=== PATIENT | female | born 1940 | race Caucasian/White ===

== ENCOUNTER 2018-05-26 17:08 | Emergency (ER) | payer OTHER, SELFPAY ==
[2018-05-26 17:13] VITALS: BP 121/72; PULSE 73; RESP 20; TEMP 35.9; O2SAT 99; BMI 32.3
--- NOTE | 2018-05-26 17:46 | ED.ABDPAIN ---
HPI - Abdominal Pain <FRAN Beltrán - Last Filed: 05/26/18 22:23> General Chief Complaint: Nausea/Vomiting/Diarrhea Stated Complaint: Nausea Time Seen by Provider: 05/26/18 17:37 Source: patient Mode of arrival: ambulatory Limitations: no limitations History of Present Illness HPI narrative: Healthy 77-year-old female who was a former smoker here for complaint of having nausea vomiting with sensation that the room is spinning that started this afternoon. She states she was sitting in a chair watching TV when the sensation started. She denies any headache. She denies any chest pain. No shortness of breath. Positive p.o. intake. She reports that the symptoms have resolved at time of exam. She denies any fevers or chills. She denies any recent trauma. No other concerns or complaints MD complaint: other Related Data Previous Rx's Medication Instructions Recorded meclizine 25 mg PO BID PRN #15 tab 05/26/18 Allergies Allergy/AdvReac Type Severity Reaction Status Date / Time nickel [NICKEL] Allergy Unknown Verified 12/07/17 15:20 Review of Systems <FRAN Beltrán - Last Filed: 05/26/18 22:23> Constitutional Denies chills, Denies fever(s), Denies lethargy and Denies weakness Comments: Vertigo Eyes Denies change in vision, Denies eye discharge, Denies irritation and Denies loss of vision ENT Ears, Nose, Mouth, and Throat: Denies change in voice, Denies neck pain and Denies sore throat Cardiovascular Denies chest pain, Denies irregular heart rhythm, Denies lightheadedness, Denies palpitations, Denies dyspnea, Denies dyspnea on exertion and Denies orthopnea Respiratory Denies cough, Denies dyspnea, Denies dyspnea on exertion and Denies wheezing Gastrointestinal Comments: Nausea vomiting Genitourinary Denies hematuria, Denies flank pain, Denies urinary incontinence and Denies urinary urgency Musculoskeletal Denies neck pain Integumentary/Breasts Denies pruritus, Denies erythema, Denies rash and Denies wounds Neurologic Denies confusion, Denies loss of vision and Denies weakness Psychiatric Denies anxiety, Denies confusion, Denies depression, Denies homicidal ideation and Denies suicidal ideation Endocrine Denies palpitations Hematologic/Lymphatic Denies easy bruising Allergic/Immunologic Denies wheezing Exam <FRAN Beltrán - Last Filed: 05/26/18 22:23> Initial Vital Signs Initial Vital Signs: Vital Signs Temperature 96.7 F L 05/26/18 17:13 Pulse Rate 73 05/26/18 17:13 Respiratory Rate 20 05/26/18 17:13 Blood Pressure 121/72 05/26/18 17:13 Pulse Oximetry 99 05/26/18 17:13 Const General: cooperative and well developed Nutritional Appearance: well nourished Orientation: alert, awake, oriented x3 and not confused HENMT Head: normal to inspection, normocephalic and atraumatic Ears: TM's normal bilaterally Mouth: oral mucosae normal and moist mucous membranes Eyes Conjunctivae: conjunctivae normal Sclera: sclerae normal Pupils: PERRL EOM: EOM intact bilaterally Neck Neck: normal visual inspection, trachea midline, No lymphadenopathy, No midline deformity and No JVD Lymphatic: No lymphedema Resp Effort & Inspection: normal respiratory effort, able to speak in complete sentences, no respiratory distress and no use of accessory muscles Auscultation: clear to auscultation bilaterally, no rales, no rhonchi and no wheezes Cardio Rate: regular rate Rhythm: regular rhythm Heart Sounds: no click, no gallops, no murmurs and no rubs Pulses: normal peripheral pulses Skin General: no rashes or lesions noted, No jaundice and No petechiae Neuro General: alert, oriented x3, gait normal and no focal motor deficits Speech: speech normal <Anderson Jenkins DO - Last Filed: 05/27/18 01:35> Initial Vital Signs Initial Vital Signs: Vital Signs Temperature 96.7 F L 05/26/18 17:13 Pulse Rate 73 05/26/18 17:13 Respiratory Rate 20 05/26/18 17:13 Blood Pressure 121/72 05/26/18 17:13 Pulse Oximetry 99 05/26/18 17:13 Course <FRAN Beltrán - Last Filed: 05/26/18 22:23> Orders Ordered: ED Orders 05/26/18 17:49 EKG-12 Lead Stat 05/26/18 18:11 Complete Blood Count AUTO DIFF Stat Comprehensive Metabolic Panel Stat Lipase Stat Partial Thromboplastin Time Stat Prothrombin Time INR Stat Troponin & CK Cardiac Panel Stat 05/26/18 18:34 CT head/brain wo con Stat 05/26/18 18:35 XR chest 1V Stat Discontinued Medications Sodium Chloride (Normal Saline 0.9%) 1,000 mls @ 1,000 mls/hr IV BOLUS ONE Stop: 05/26/18 19:33 Last Infusion: 05/26/18 19:35 Dose: 0 mls/hr Admin: 05/26/18 18:00 Dose: 1,000 mls/hr Ondansetron HCl (Zofran) 4 mg IV NOW ONE Stop: 05/26/18 17:57 Last Admin: 05/26/18 18:00 Dose: 4 mg Vital Signs - 8 hr 05/26/18 19:00 05/26/18 20:50 Pulse Rate 66 71 Respiratory Rate 15 21 Blood Pressure 136/61 Blood Pressure [Left Wrist] 133/55 L Pulse Oximetry 99 93 <Anderson Jenkins DO - Last Filed: 05/27/18 01:35> Orders Ordered: ED Orders 05/26/18 17:49 EKG-12 Lead Stat 05/26/18 18:11 Complete Blood Count AUTO DIFF Stat Comprehensive Metabolic Panel Stat Lipase Stat Partial Thromboplastin Time Stat Prothrombin Time INR Stat Troponin & CK Cardiac Panel Stat 05/26/18 18:34 CT head/brain wo con Stat 05/26/18 18:35 XR chest 1V Stat Discontinued Medications Sodium Chloride (Normal Saline 0.9%) 1,000 mls @ 1,000 mls/hr IV BOLUS ONE Stop: 05/26/18 19:33 Last Infusion: 05/26/18 19:35 Dose: 0 mls/hr Admin: 05/26/18 18:00 Dose: 1,000 mls/hr Ondansetron HCl (Zofran) 4 mg IV NOW ONE Stop: 05/26/18 17:57 Last Admin: 05/26/18 18:00 Dose: 4 mg Vital Signs - 8 hr 05/26/18 19:00 05/26/18 20:50 Pulse Rate 66 71 Respiratory Rate 15 21 Blood Pressure 136/61 Blood Pressure [Left Wrist] 133/55 L Pulse Oximetry 99 93 MDM - Abdominal Pain <FRAN Beltrán - Last Filed: 05/26/18 22:23> Lab Data Result diagrams: 05/26/18 18:11 05/26/18 18:11 Lab Results 05/26/18 05/26/18 05/26/18 Range/Units 18:11 18:11 18:11 WBC 10.0 (4.5-11.0) X10^3/uL RBC 4.47 (4.0-5.2) X10^6/uL Hgb 14.2 (12.0-16.0) g/dL Hct 42.1 (36-46) % MCV 94.0 (80-100) fL MCH 31.7 (26-34) PG MCHC 33.7 (30-36) % RDW 13.2 (11.6-14.8) % Plt Count 288 (150-400) X10^3/uL Neut % (Auto) 83.7 H (50-75) % Lymph % (Auto) 9.7 L (25-40) % Winn % (Auto) 5.7 (3-14) % Eos % (Auto) 0.3 L (2-4) % Baso % (Auto) 0.6 (0-2) % Neut # (Auto) 8300 H (8940-3511) /uL PT 11.4 (10.1-12.7) SECONDS INR 1.0 (0.9-1.3) APTT 28 (26.4-36.2) SECONDS Sodium 139 (137-145) mmol/L Potassium 4.2 (3.4-5.1) mmol/L Chloride 105 (98-107) mmol/L Carbon Dioxide 23 (22-32) mmol/L BUN 16 (7-17) mg/dL Creatinine 0.80 (0.52-1.04) mg/dL Estimated GFR > 60.0 (>60) mL/min BUN/Creatinine Ratio 20.0 (6-22) Glucose 140 H (80-110) mg/dL Calcium 9.0 (8.4-10.2) mg/dL Total Bilirubin 0.3 (0.2-1.3) mg/dL AST 18 (14-36) IU/L ALT 18 (9-52) IU/L Alkaline Phosphatase 80 (38-126) U/L Total Creatine Kinase 36 (30-135) U/L CK-MB (CK-2) TNP CK-MB (CK-2) Rel Index TNP Troponin I < 0.012 (0.01-0.034) ng/mL Total Protein 6.7 (6.3-8.2) g/dL Albumin 3.9 (3.5-5.0) g/dL Globulin 2.8 (1.7-4.1) g/dL Albumin/Globulin Ratio 1.4 (1.0-2.8) Lipase 67 (23-300) U/L Imaging Data Chest x-ray: Radiologist's impression: [address] [id number] XRay Report Signed Patient: Miracle Crystal MR#: [id number] : 1940 Acct:[id number] Age/Sex: 77 / F Date of Service: 05/26/18 Loc: ED Accession Number: [id number] Procedure: XR chest 1V Ordering Provider: Luis Gomez PROCEDURE: XR CHEST 1V INDICATIONS: Nausea vomiting and vertigo TECHNIQUE: One view of the chest was acquired. COMPARISON: [facility], , CHEST 2VW, 07/09/2006, 3:52. FINDINGS: Surgical changes and devices: None. Lungs and pleura: No pleural effusions or pneumothorax. Lungs are clear. Mediastinum: Mediastinal contours appear normal. Heart size is normal. Bones and chest wall: No suspicious bony lesions. Overlying soft tissues appear unremarkable. IMPRESSION: No acute cardiopulmonary disease. Dictated by: Esther Alvarado M.D. on 05/26/2018 at 19:23 Approved by: Esther Alvarado M.D. on 05/26/2018 at 19:24 CT scan - head: Radiologist's impression: [address] [id number] [address] Scan Report Signed Patient: Miracle Crystal MR#: [id number] : 1940 Acct:[id number] Age/Sex: 77 / F Date of Service: 05/26/18 Loc: ED Accession Number: [id number] Procedure: CT head/brain wo con Ordering Provider: Luis Gomez PROCEDURE: CT HEAD/BRAIN WO CON INDICATIONS: Nausea vomiting vertigo TECHNIQUE: Noncontrast 4.5 mm thick angled axial sections acquired from the foramen magnum to the vertex, with coronal and sagittal reformats. For radiation dose reduction, the following was used: automated exposure control, adjustment of mA and/or kV according to patient size. COMPARISON: None. FINDINGS: Image quality: Excellent. CSF spaces: Basal cisterns are patent. No extra-axial fluid collections. The ventricles are symmetric in size and shape. Brain: No intracranial bleeds or masses. There are mild periventricular and deep white matter chronic small vessel ischemic changes. There is intracranial internal carotid artery atherosclerosis. Skull and face: Calvarium and visualized facial bones appear intact, without suspicious lesions. Sinuses: Visualized sinuses and mastoids are clear. IMPRESSION: 1. No acute intracranial abnormalities. Dictated by: Esther Alvarado M.D. on 05/26/2018 at 19:16 Approved by: Esther Alvarado M.D. on 05/26/2018 at 19:23 ECG Data Interpretation: EKG shows sinus rhythm with no ST elevation or depression. No ectopy. Ventricular rate is 64. Pr interval of 168. QRS duration of 89. QTC of 418 MDM Narrative Medical decision making narrative: EKG shows sinus rhythm with no ST elevation or depression. No ectopy. CT of the head was obtained was negative for any acute findings. Chest x-ray was obtained was negative for any acute findings. CBC and Chem panel were obtained and were unremarkable. Cardiac enzymes were negative. Signs and symptoms have resolved. Will treat for BPPV with meclizine and modified Carlos maneuvers at home. Follow up with primary care provider next few days for re-evaluation. For any worsening symptoms return to the emergency room. <Anderson Jenkins DO - Last Filed: 05/27/18 01:35> Lab Data Lab Results 05/26/18 05/26/18 05/26/18 Range/Units 18:11 18:11 18:11 WBC 10.0 (4.5-11.0) X10^3/uL RBC 4.47 (4.0-5.2) X10^6/uL Hgb 14.2 (12.0-16.0) g/dL Hct 42.1 (36-46) % MCV 94.0 (80-100) fL MCH 31.7 (26-34) PG MCHC 33.7 (30-36) % RDW 13.2 (11.6-14.8) % Plt Count 288 (150-400) X10^3/uL Neut % (Auto) 83.7 H (50-75) % Lymph % (Auto) 9.7 L (25-40) % Winn % (Auto) 5.7 (3-14) % Eos % (Auto) 0.3 L (2-4) % Baso % (Auto) 0.6 (0-2) % Neut # (Auto) 8300 H (2788-6860) /uL PT 11.4 (10.1-12.7) SECONDS INR 1.0 (0.9-1.3) APTT 28 (26.4-36.2) SECONDS Sodium 139 (137-145) mmol/L Potassium 4.2 (3.4-5.1) mmol/L Chloride 105 (98-107) mmol/L Carbon Dioxide 23 (22-32) mmol/L BUN 16 (7-17) mg/dL Creatinine 0.80 (0.52-1.04) mg/dL Estimated GFR > 60.0 (>60) mL/min BUN/Creatinine Ratio 20.0 (6-22) Glucose 140 H (80-110) mg/dL Calcium 9.0 (8.4-10.2) mg/dL Total Bilirubin 0.3 (0.2-1.3) mg/dL AST 18 (14-36) IU/L ALT 18 (9-52) IU/L Alkaline Phosphatase 80 (38-126) U/L Total Creatine Kinase 36 (30-135) U/L CK-MB (CK-2) TNP CK-MB (CK-2) Rel Index TNP Troponin I < 0.012 (0.01-0.034) ng/mL Total Protein 6.7 (6.3-8.2) g/dL Albumin 3.9 (3.5-5.0) g/dL Globulin 2.8 (1.7-4.1) g/dL Albumin/Globulin Ratio 1.4 (1.0-2.8) Lipase 67 (23-300) U/L Discharge Plan Departure Patient Disposition: Home Clinical Impression: Benign paroxysmal positional vertigo Discharge Date/Time: 05/26/18 20:51 Interventions: ED Discharge Assessment Last Done: 05/26/18 20:50 Instructions: DI for Benign Paroxysmal Positional Vertigo Activity Restrictions/Additional Instructions: Laboratory results and imaging today were unremarkable. EKG was normal. Signs and symptoms presents as a benign proximal positional vertigo pain. Use meclizine as needed for any vertigo. Perform a modified Apley's maneuvers as shown to help with vertigo symptoms. Follow up with her primary care provider next week. For any worsening symptoms return to the emergency room. Prescriptions: New meclizine 25 mg tablet 25 mg PO BID PRN (Reason: dizziness) Qty: 15 RF: 0 Referrals: Queenie Moody DO [Primary Care Provider] - <Anderson Jenkins DO - Last Filed: 05/27/18 01:35> Cosign ED Attending Elliotature Attestation: I was immediately available in the department for consultation. Documentation has been reviewed. I agree with assessment and plan.
--- NOTE | 2018-05-26 17:51 | ED_ITS ---
HPI - Abdominal Pain <FRAN Beltrán - Last Filed: 05/26/18 22:23> General Chief Complaint: Nausea/Vomiting/Diarrhea Stated Complaint: Nausea Time Seen by Provider: 05/26/18 17:37 Source: patient Mode of arrival: ambulatory Limitations: no limitations History of Present Illness HPI narrative: Healthy 77-year-old female who was a former smoker here for complaint of having nausea vomiting with sensation that the room is spinning that started this afternoon. She states she was sitting in a chair watching TV when the sensation started. She denies any headache. She denies any chest pain. No shortness of breath. Positive p.o. intake. She reports that the symptoms have resolved at time of exam. She denies any fevers or chills. She denies any recent trauma. No other concerns or complaints MD complaint: other Related Data Previous Rx's Medication Instructions Recorded meclizine 25 mg PO BID PRN #15 tab 05/26/18 Allergies Allergy/AdvReac Type Severity Reaction Status Date / Time nickel [NICKEL] Allergy Unknown Verified 12/07/17 15:20 Review of Systems <FRAN Beltrán - Last Filed: 05/26/18 22:23> Constitutional Denies chills, Denies fever(s), Denies lethargy and Denies weakness Comments: Vertigo Eyes Denies change in vision, Denies eye discharge, Denies irritation and Denies loss of vision ENT Ears, Nose, Mouth, and Throat: Denies change in voice, Denies neck pain and Denies sore throat Cardiovascular Denies chest pain, Denies irregular heart rhythm, Denies lightheadedness, Denies palpitations, Denies dyspnea, Denies dyspnea on exertion and Denies orthopnea Respiratory Denies cough, Denies dyspnea, Denies dyspnea on exertion and Denies wheezing Gastrointestinal Comments: Nausea vomiting Genitourinary Denies hematuria, Denies flank pain, Denies urinary incontinence and Denies urinary urgency Musculoskeletal Denies neck pain Integumentary/Breasts Denies pruritus, Denies erythema, Denies rash and Denies wounds Neurologic Denies confusion, Denies loss of vision and Denies weakness Psychiatric Denies anxiety, Denies confusion, Denies depression, Denies homicidal ideation and Denies suicidal ideation Endocrine Denies palpitations Hematologic/Lymphatic Denies easy bruising Allergic/Immunologic Denies wheezing Exam <FRAN Beltrán - Last Filed: 05/26/18 22:23> Initial Vital Signs Initial Vital Signs: Vital Signs Temperature 96.7 F L 05/26/18 17:13 Pulse Rate 73 05/26/18 17:13 Respiratory Rate 20 05/26/18 17:13 Blood Pressure 121/72 05/26/18 17:13 Pulse Oximetry 99 05/26/18 17:13 Const General: cooperative and well developed Nutritional Appearance: well nourished Orientation: alert, awake, oriented x3 and not confused HENMT Head: normal to inspection, normocephalic and atraumatic Ears: TM's normal bilaterally Mouth: oral mucosae normal and moist mucous membranes Eyes Conjunctivae: conjunctivae normal Sclera: sclerae normal Pupils: PERRL EOM: EOM intact bilaterally Neck Neck: normal visual inspection, trachea midline, No lymphadenopathy, No midline deformity and No JVD Lymphatic: No lymphedema Resp Effort & Inspection: normal respiratory effort, able to speak in complete sentences, no respiratory distress and no use of accessory muscles Auscultation: clear to auscultation bilaterally, no rales, no rhonchi and no wheezes Cardio Rate: regular rate Rhythm: regular rhythm Heart Sounds: no click, no gallops, no murmurs and no rubs Pulses: normal peripheral pulses Skin General: no rashes or lesions noted, No jaundice and No petechiae Neuro General: alert, oriented x3, gait normal and no focal motor deficits Speech: speech normal <Anderson Jenkins DO - Last Filed: 05/27/18 01:35> Initial Vital Signs Initial Vital Signs: Vital Signs Temperature 96.7 F L 05/26/18 17:13 Pulse Rate 73 05/26/18 17:13 Respiratory Rate 20 05/26/18 17:13 Blood Pressure 121/72 05/26/18 17:13 Pulse Oximetry 99 05/26/18 17:13 Course <FRAN Beltrán - Last Filed: 05/26/18 22:23> Orders Ordered: ED Orders 05/26/18 17:49 EKG-12 Lead Stat 05/26/18 18:11 Complete Blood Count AUTO DIFF Stat Comprehensive Metabolic Panel Stat Lipase Stat Partial Thromboplastin Time Stat Prothrombin Time INR Stat Troponin & CK Cardiac Panel Stat 05/26/18 18:34 CT head/brain wo con Stat 05/26/18 18:35 XR chest 1V Stat Discontinued Medications Sodium Chloride (Normal Saline 0.9%) 1,000 mls @ 1,000 mls/hr IV BOLUS ONE Stop: 05/26/18 19:33 Last Infusion: 05/26/18 19:35 Dose: 0 mls/hr Admin: 05/26/18 18:00 Dose: 1,000 mls/hr Ondansetron HCl (Zofran) 4 mg IV NOW ONE Stop: 05/26/18 17:57 Last Admin: 05/26/18 18:00 Dose: 4 mg Vital Signs - 8 hr 05/26/18 19:00 05/26/18 20:50 Pulse Rate 66 71 Respiratory Rate 15 21 Blood Pressure 136/61 Blood Pressure [Left Wrist] 133/55 L Pulse Oximetry 99 93 <Anderson Jenkins DO - Last Filed: 05/27/18 01:35> Orders Ordered: ED Orders 05/26/18 17:49 EKG-12 Lead Stat 05/26/18 18:11 Complete Blood Count AUTO DIFF Stat Comprehensive Metabolic Panel Stat Lipase Stat Partial Thromboplastin Time Stat Prothrombin Time INR Stat Troponin & CK Cardiac Panel Stat 05/26/18 18:34 CT head/brain wo con Stat 05/26/18 18:35 XR chest 1V Stat Discontinued Medications Sodium Chloride (Normal Saline 0.9%) 1,000 mls @ 1,000 mls/hr IV BOLUS ONE Stop: 05/26/18 19:33 Last Infusion: 05/26/18 19:35 Dose: 0 mls/hr Admin: 05/26/18 18:00 Dose: 1,000 mls/hr Ondansetron HCl (Zofran) 4 mg IV NOW ONE Stop: 05/26/18 17:57 Last Admin: 05/26/18 18:00 Dose: 4 mg Vital Signs - 8 hr 05/26/18 19:00 05/26/18 20:50 Pulse Rate 66 71 Respiratory Rate 15 21 Blood Pressure 136/61 Blood Pressure [Left Wrist] 133/55 L Pulse Oximetry 99 93 MDM - Abdominal Pain <FRAN Beltrán - Last Filed: 05/26/18 22:23> Lab Data Result diagrams: 05/26/18 18:11 05/26/18 18:11 Lab Results 05/26/18 05/26/18 05/26/18 Range/Units 18:11 18:11 18:11 WBC 10.0 (4.5-11.0) X10^3/uL RBC 4.47 (4.0-5.2) X10^6/uL Hgb 14.2 (12.0-16.0) g/dL Hct 42.1 (36-46) % MCV 94.0 (80-100) fL MCH 31.7 (26-34) PG MCHC 33.7 (30-36) % RDW 13.2 (11.6-14.8) % Plt Count 288 (150-400) X10^3/uL Neut % (Auto) 83.7 H (50-75) % Lymph % (Auto) 9.7 L (25-40) % [place] % (Auto) 5.7 (3-14) % Eos % (Auto) 0.3 L (2-4) % Baso % (Auto) 0.6 (0-2) % Neut # (Auto) 8300 H (7349-6373) /uL PT 11.4 (10.1-12.7) SECONDS INR 1.0 (0.9-1.3) APTT 28 (26.4-36.2) SECONDS Sodium 139 (137-145) mmol/L Potassium 4.2 (3.4-5.1) mmol/L Chloride 105 (98-107) mmol/L Carbon Dioxide 23 (22-32) mmol/L BUN 16 (7-17) mg/dL Creatinine 0.80 (0.52-1.04) mg/dL Estimated GFR > 60.0 (>60) mL/min BUN/Creatinine Ratio 20.0 (6-22) Glucose 140 H (80-110) mg/dL Calcium 9.0 (8.4-10.2) mg/dL Total Bilirubin 0.3 (0.2-1.3) mg/dL AST 18 (14-36) IU/L ALT 18 (9-52) IU/L Alkaline Phosphatase 80 (38-126) U/L Total Creatine Kinase 36 (30-135) U/L CK-MB (CK-2) TNP CK-MB (CK-2) Rel Index TNP Troponin I < 0.012 (0.01-0.034) ng/mL Total Protein 6.7 (6.3-8.2) g/dL Albumin 3.9 (3.5-5.0) g/dL Globulin 2.8 (1.7-4.1) g/dL Albumin/Globulin Ratio 1.4 (1.0-2.8) Lipase 67 (23-300) U/L Imaging Data Chest x-ray: Radiologist's impression: [address] [address] XRay Report Signed Patient: Miracle Crystal MR#: [id number] : 1940 Acct:[id number] Age/Sex: 77 / F Date of Service: 05/26/18 Loc: ED Accession Number: [id number] Procedure: XR chest 1V Ordering Provider: Luis Gomez PROCEDURE: XR CHEST 1V INDICATIONS: Nausea vomiting and vertigo TECHNIQUE: One view of the chest was acquired. COMPARISON: [facility], , CHEST 2VW, 07/09/2006, 3:52. FINDINGS: Surgical changes and devices: None. Lungs and pleura: No pleural effusions or pneumothorax. Lungs are clear. Mediastinum: Mediastinal contours appear normal. Heart size is normal. Bones and chest wall: No suspicious bony lesions. Overlying soft tissues appear unremarkable. IMPRESSION: No acute cardiopulmonary disease. Dictated by: Esther Alvarado M.D. on 05/26/2018 at 19:23 Approved by: Esther Alvarado M.D. on 05/26/2018 at 19:24 CT scan - head: Radiologist's impression: [address] [address] [address] Scan Report Signed Patient: Miracle Crystal MR#: [id number] : 1940 Acct:[id number] Age/Sex: 77 / F Date of Service: 05/26/18 Loc: ED Accession Number: [id number] Procedure: CT head/brain wo con Ordering Provider: Luis Gomez PROCEDURE: CT HEAD/BRAIN WO CON INDICATIONS: Nausea vomiting vertigo TECHNIQUE: Noncontrast 4.5 mm thick angled axial sections acquired from the foramen magnum to the vertex, with coronal and sagittal reformats. For radiation dose reduction, the following was used: automated exposure control, adjustment of mA and/or kV according to patient size. COMPARISON: None. FINDINGS: Image quality: Excellent. CSF spaces: Basal cisterns are patent. No extra-axial fluid collections. The ventricles are symmetric in size and shape. Brain: No intracranial bleeds or masses. There are mild periventricular and deep white matter chronic small vessel ischemic changes. There is intracranial internal carotid artery atherosclerosis. Skull and face: Calvarium and visualized facial bones appear intact, without suspicious lesions. Sinuses: Visualized sinuses and mastoids are clear. IMPRESSION: 1. No acute intracranial abnormalities. Dictated by: Esther Alvarado M.D. on 05/26/2018 at 19:16 Approved by: Esther Alvarado M.D. on 05/26/2018 at 19:23 ECG Data Interpretation: EKG shows sinus rhythm with no ST elevation or depression. No ectopy. Ventricular rate is 64. Pr interval of 168. QRS duration of 89. QTC of 418 MDM Narrative Medical decision making narrative: EKG shows sinus rhythm with no ST elevation or depression. No ectopy. CT of the head was obtained was negative for any acute findings. Chest x-ray was obtained was negative for any acute findings. CBC and Chem panel were obtained and were unremarkable. Cardiac enzymes were negative. Signs and symptoms have resolved. Will treat for BPPV with meclizine and modified Carlos maneuvers at home. Follow up with primary care provider next few days for re-evaluation. For any worsening symptoms return to the emergency room. <Anderson Jenkins DO - Last Filed: 05/27/18 01:35> Lab Data Lab Results 05/26/18 05/26/18 05/26/18 Range/Units 18:11 18:11 18:11 WBC 10.0 (4.5-11.0) X10^3/uL RBC 4.47 (4.0-5.2) X10^6/uL Hgb 14.2 (12.0-16.0) g/dL Hct 42.1 (36-46) % MCV 94.0 (80-100) fL MCH 31.7 (26-34) PG MCHC 33.7 (30-36) % RDW 13.2 (11.6-14.8) % Plt Count 288 (150-400) X10^3/uL Neut % (Auto) 83.7 H (50-75) % Lymph % (Auto) 9.7 L (25-40) % [place] % (Auto) 5.7 (3-14) % Eos % (Auto) 0.3 L (2-4) % Baso % (Auto) 0.6 (0-2) % Neut # (Auto) 8300 H (6290-3517) /uL PT 11.4 (10.1-12.7) SECONDS INR 1.0 (0.9-1.3) APTT 28 (26.4-36.2) SECONDS Sodium 139 (137-145) mmol/L Potassium 4.2 (3.4-5.1) mmol/L Chloride 105 (98-107) mmol/L Carbon Dioxide 23 (22-32) mmol/L BUN 16 (7-17) mg/dL Creatinine 0.80 (0.52-1.04) mg/dL Estimated GFR > 60.0 (>60) mL/min BUN/Creatinine Ratio 20.0 (6-22) Glucose 140 H (80-110) mg/dL Calcium 9.0 (8.4-10.2) mg/dL Total Bilirubin 0.3 (0.2-1.3) mg/dL AST 18 (14-36) IU/L ALT 18 (9-52) IU/L Alkaline Phosphatase 80 (38-126) U/L Total Creatine Kinase 36 (30-135) U/L CK-MB (CK-2) TNP CK-MB (CK-2) Rel Index TNP Troponin I < 0.012 (0.01-0.034) ng/mL Total Protein 6.7 (6.3-8.2) g/dL Albumin 3.9 (3.5-5.0) g/dL Globulin 2.8 (1.7-4.1) g/dL Albumin/Globulin Ratio 1.4 (1.0-2.8) Lipase 67 (23-300) U/L Discharge Plan Departure Patient Disposition: Home Clinical Impression: Benign paroxysmal positional vertigo Discharge Date/Time: 05/26/18 20:51 Interventions: ED Discharge Assessment Last Done: 05/26/18 20:50 Instructions: DI for Benign Paroxysmal Positional Vertigo Activity Restrictions/Additional Instructions: Laboratory results and imaging today were unremarkable. EKG was normal. Signs and symptoms presents as a benign proximal positional vertigo pain. Use meclizine as needed for any vertigo. Perform a modified Apley's maneuvers as shown to help with vertigo symptoms. Follow up with her primary care provider next week. For any worsening symptoms return to the emergency room. Prescriptions: New meclizine 25 mg tablet 25 mg PO BID PRN (Reason: dizziness) Qty: 15 RF: 0 Referrals: Queenie Moody DO [Primary Care Provider] - <Anderson Jenkins DO - Last Filed: 05/27/18 01:35> Cosign ED Attending Elliotature Attestation: I was immediately available in the department for consultation. Documentation has been reviewed. I agree with assessment and plan.
[2018-05-26] MEDS: ONDANSETRON 4 MG/2 ML INJ IV (18:00)
[2018-05-26] MEDS: SODIUM CHLORIDE 0.9% 1,000 ML 1000 ML IV (18:00)
--- NOTE | 2018-05-26 18:07 | PC.NURSE ---
Pt felt nauseated and upon arrival felt dizzy. Pt denies pain
[2018-05-26 18:19] LABS: Add Manual Diff / Slide Review NO; Basophils Percent Auto 0.6 % (0-2); Eosinophils Percent Auto 0.3 % (2-4); Hematocrit 42.1 % (36-46); Hemoglobin 14.2 g/dL (12.0-16.0); Lymphocytes Percent Auto 9.7 % (25-40); Mean Corpuscular HGB Conc 33.7 % (30-36); Mean Corpuscular Hemoglobin 31.7 PG (26-34); Monocytes Percent Auto 5.7 % (3-14); Neutrophils Absolute Auto 8300 /uL (1500-7000); Neutrophils Percent Auto 83.7 % (50-75); Platelet Count 288 X10^3/uL (150-400); Red Blood Cell Count 4.47 X10^6/uL (4.0-5.2); Red Cell Distribution Width 13.2 % (11.6-14.8)
[2018-05-26 18:30] LABS: Prothrombin Time 11.4 SECONDS (10.1-12.7)
[2018-05-26 18:33] LABS: PTT Partial Thromboplastin Tim 28 SECONDS (26.4-36.2)
--- NOTE | 2018-05-26 18:34 | DI.CT.S_ITS ---
PROCEDURE: CT HEAD/BRAIN WO CON INDICATIONS: Nausea vomiting vertigo TECHNIQUE: Noncontrast 4.5 mm thick angled axial sections acquired from the foramen magnum to the vertex, with coronal and sagittal reformats. For radiation dose reduction, the following was used: automated exposure control, adjustment of mA and/or kV according to patient size. COMPARISON: None. FINDINGS: Image quality: Excellent. CSF spaces: Basal cisterns are patent. No extra-axial fluid collections. The ventricles are symmetric in size and shape. Brain: No intracranial bleeds or masses. There are mild periventricular and deep white matter chronic small vessel ischemic changes. There is intracranial internal carotid artery atherosclerosis. Skull and face: Calvarium and visualized facial bones appear intact, without suspicious lesions. Sinuses: Visualized sinuses and mastoids are clear. IMPRESSION: 1. No acute intracranial abnormalities. Dictated by: Esther Alvarado M.D. on 05/26/2018 at 19:16 Approved by: Esther Alvarado M.D. on 05/26/2018 at 19:23
[2018-05-26 18:35] LABS: Alanine Aminotransferase 18 IU/L (9-52); Albumin 3.9 g/dL (3.5-5.0); Albumin Globulin Ratio 1.4 (1.0-2.8); Alkaline Phosphatase 80 U/L (38-126); Aspartate Aminotransferase 18 IU/L (14-36); Bilirubin Total 0.3 mg/dL (0.2-1.3); Blood Urea Nitrogen 16 mg/dL (7-17); Carbon Dioxide 23 mmol/L (22-32); Chloride 105 mmol/L (98-107); Estimated Glomerular Filt Rate > 60.0 mL/min (>60); Globulin 2.8 g/dL (1.7-4.1); Glucose 140 mg/dL (80-110); HEMOLYSIS < 15 (0-50); Lipase 67 U/L (23-300); Potassium 4.2 mmol/L (3.4-5.1); Sodium 139 mmol/L (137-145); Total Protein 6.7 g/dL (6.3-8.2)
--- NOTE | 2018-05-26 18:35 | DI.RAD.S_ITS ---
PROCEDURE: XR CHEST 1V INDICATIONS: Nausea vomiting and vertigo TECHNIQUE: One view of the chest was acquired. COMPARISON: [facility], CR, CHEST 2VW, 07/09/2006, 3:52. FINDINGS: Surgical changes and devices: None. Lungs and pleura: No pleural effusions or pneumothorax. Lungs are clear. Mediastinum: Mediastinal contours appear normal. Heart size is normal. Bones and chest wall: No suspicious bony lesions. Overlying soft tissues appear unremarkable. IMPRESSION: No acute cardiopulmonary disease. Dictated by: Esther Alvarado M.D. on 05/26/2018 at 19:23 Approved by: Esther Alvarado M.D. on 05/26/2018 at 19:24
[2018-05-26 19:00] VITALS: BP 133/55; PULSE 66; RESP 15; O2SAT 99
[2018-05-26 19:12] LABS: Creatine Kinase 36 U/L (30-135)
[2018-05-26 19:26] LABS: Troponin I < 0.012 ng/mL (0.01-0.034)
[2018-05-26 20:50] VITALS: BP 136/61; PULSE 71; RESP 21; O2SAT 93
== END 2018-05-26 20:51 | disposition home or self-care (01) ==
PROVIDERS: Emergency Medicine; Emergency Provider Nurse Practitioner Family; Family Provider Family Medicine; PCP Family Medicine
DX: H81.10 Benign paroxysmal vertigo, unspecified ear (principal)
CPT/HCPCS: 36415; 70450; 71045; 80053; 82550; 83690; 84484; 85025; 85610; 85730; 93005; 96361; 96374; 99283; 99285; J2405

== ENCOUNTER 2023-03-03 11:10 | Inpatient (IN) | payer OTHER, SELFPAY ==
[2023-03-03] VITALS (10 sets, daily range): BP systolic 117–186; BP diastolic 50–74; PULSE 71–89; RESP 14–23; TEMP 35.8–37.1; O2SAT 96–100; BMI 34.2
--- NOTE | 2023-03-03 11:11 | DI.RAD.S_ITS ---
PROCEDURE: XR HIP W PEL IF DONE LT 2V INDICATIONS: GLF on left hip TECHNIQUE: AP pelvis with lateral view(s) of the left hip(s). COMPARISON: None. FINDINGS: Bones: Acute fracture involving subcapital region of left femoral neck is seen with slight superior and inferior displacement of proximal femoral shaft in relation to femoral head. 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 No evidence of avascular necrosis of femoral head. Pelvic ring appears intact. No suspicious bony lesions. Soft tissues: The visualized bowel gas pattern is normal. No suspicious soft tissue calcifications. IMPRESSION: Acute displaced left femoral neck fracture as above. Dictated by: Bud Dent M.D. on 03/03/2023 at 11:29 Approved by: Bud Dent M.D. on 03/03/2023 at 11:30
--- NOTE | 2023-03-03 11:47 | ED_ITS ---
HPI - Fall General Chief Complaint: Fall Stated Complaint: GLF, Left Hip Pain Time Seen by Provider: 03/03/23 11:11 Source: patient and EMS Mode of arrival: EMS History of Present Illness HPI Narrative: [place]. She was walking her dogs and the dog pulled her off balance and she landed on her left hip. No prior history of broken hip. Denies any other injuries. Patient not on any blood thinners. Exam shows no shortening or rotation of the lower extremity. Foot and Ankle exposed. As well as thigh leg and knee. Related Data Previous Rx's Medication Instructions Recorded amiodarone 200 mg tablet 200 mg PO BIDWM #60 tabs 03/08/23 apixaban 5 mg tablet (Eliquis) 5 mg PO BID #60 tabs 03/08/23 metoprolol tartrate 25 mg tablet 25 mg PO BID #60 tabs 03/08/23 oxycodone 5 mg tablet 5 mg PO Q3H PRN Pain, Moderate 03/08/23 (4-6) #12 tabs polyethylene glycol 3350 17 gram 17 g PO DAILY PRN Constipation #14 03/08/23 oral powder packet ea Allergies Allergy/AdvReac Type Severity Reaction Status Date / Time nickel [NICKEL] Allergy Unknown Verified 07/05/19 08:13 Review of Systems Review of Systems Narrative: GENERAL: negative chills, fatigue, malaise, fever, sweats. HEENT: negative sinus pain, ear pain, sore throat RESPIRATORY: negative dyspnea, cough CARDIOVASCULAR: negative chest pain, palpitations GASTROINTESTINAL: negative nausea, vomiting, abdominal pain : negative dysuria, frequency, hematuria MUSCULOSKELETAL: Positive muscle or bony pain SKIN: negative rash, skin lesions NEUROLOGIC: negative weakness, numbness ROS Unobtainable: All systems reviewed & are unremarkable except as noted in HPI and below Patient History Medical History Ganglion cyst of finger of right hand Surgical History History of cataract removal with insertion of prosthetic lens Social History household members: significant other Smoking Status: Former smoker alcohol intake: never Smoking Status: Former smoker Substance Use Type: does not use Exam Narrative Exam Narrative: GENERAL: in no distress, not toxic not dyspneic HEAD: Normocephalic. Two abrasions to the left cheek, nontender maxilla and face. No malocclusion or trismus EYES: Pupils equal round ENT: Mucous membranes moist. NECK: Trachea midline. No midline tenderness or step-off of the posterior cervical spine CARDIOVASCULAR: Regular rate and rhythm RESPIRATORY: Clear to auscultation. Breath sounds equal bilaterally. No wheezes, rales, or rhonchi. GASTROINTESTINAL: Abdomen soft, non-tender EXTREMITIES: No gross deformities. Limited range of motion of the left lower extremity. Hip to toes exposed. Foot warm soft velazquez-pink strong pedal pulse wiggles toes light touch intact to foot and toes. Nontender knee and ankle. No shortening or rotation of the left lower extremity NEURO: AOx4. Clear speech SKIN: Warm and dry PSYCH: Not anxious, is cooperative Initial Vital Signs Initial Vital Signs: Vital Signs Pulse Rate 89 03/03/23 11:15 Blood Pressure 186/74 H 03/03/23 11:15 Pulse Oximetry 100 03/03/23 11:15 Oxygen Delivery Method Room Air 03/03/23 11:15 Course Orders Ordered: Discontinued Medications Acetaminophen (Acetaminophen 325 Mg Tablet) 650 mg PO Q6H PRN PRN Reason: Fever/Mild Pain (1-3) Last Admin: 03/08/23 15:08 Dose: 650 mg Documented By: Admin: 03/08/23 04:25 Dose: 650 mg Documented By: Admin: 03/07/23 22:24 Dose: 650 mg Documented By: Admin: 03/07/23 14:08 Dose: 650 mg Documented By: Admin: 03/07/23 04:09 Dose: 650 mg Documented By: Admin: 03/06/23 22:55 Dose: 650 mg Documented By: Admin: 03/06/23 17:21 Dose: 650 mg Documented By: Admin: 03/06/23 04:22 Dose: 650 mg Documented By: Admin: 03/04/23 19:42 Dose: 650 mg Documented By: BUCK Acetaminophen (Acetaminophen 325 Mg Tablet) 975 mg PO NOW PRN PRN Reason: Pain, Moderate (4-6) Amiodarone HCl (Amiodarone 150 Mg/3 Ml Vial) 150 mg IV NOW ONE Stop: 03/05/23 20:28 Last Admin: 03/06/23 10:09 Dose: Not Given Documented By: CRIS Amiodarone HCl (Amiodarone 200 Mg Tablet) 100 mg PO DAILY [facility] Last Admin: 03/07/23 08:26 Dose: 100 mg Documented By: Admin: 03/06/23 12:02 Dose: 100 mg Documented By: CRIS Amiodarone HCl (Amiodarone 200 Mg Tablet) 200 mg PO BIDWM [facility] Last Admin: 03/08/23 08:21 Dose: 200 mg Documented By: NAM Apixaban (Apixaban 5 Mg Tablet) 5 mg PO BID [facility] Last Admin: 03/08/23 08:21 Dose: 5 mg Documented By: Admin: 03/07/23 21:37 Dose: 5 mg Documented By: AIYANA Aspirin (Aspirin Ec 81 Mg Tablet) 81 mg PO BID [facility] Last Admin: 03/07/23 08:26 Dose: 81 mg Documented By: Admin: 03/06/23 21:18 Dose: 81 mg Documented By: Admin: 03/06/23 08:37 Dose: 81 mg Documented By: Admin: 03/05/23 21:46 Dose: Not Given Documented By: JOLENE Sodium Chloride 1,000 ml/ (Tranexamic Acid 1,000 mg) 0 ml IRR NOW ONE Stop: 03/05/23 16:54 Last Admin: 03/05/23 16:30 Dose: 10 ml Documented By: ADRYAN Docusate Sodium (Docusate 100 Mg Capsule) 100 mg PO BID [facility] Last Admin: 03/08/23 08:21 Dose: 100 mg Documented By: Admin: 03/07/23 21:10 Dose: Not Given Documented By: Admin: 03/07/23 08:26 Dose: 100 mg Documented By: Admin: 03/06/23 21:18 Dose: 100 mg Documented By: Admin: 03/06/23 08:37 Dose: 100 mg Documented By: Admin: 03/05/23 21:46 Dose: Not Given Documented By: JOLENE Enoxaparin Sodium (Enoxaparin 40 Mg/0.4 Ml Syringe) 40 mg SUBCUT DAILY [facility] Last Admin: 03/07/23 08:26 Dose: 40 mg Documented By: Admin: 03/06/23 09:38 Dose: 40 mg Documented By: AZEB Fentanyl (Fentanyl 100 Mcg/2 Ml Inj) 0 mcg IV Q5MIN PRN PRN Reason: Pain, Severe (7-10) Hydromorphone HCl (Hydromorphone 1 Mg Inj) 1 mg IV NOW ONE Stop: 03/03/23 12:28 Last Admin: 03/03/23 12:39 Dose: 0.5 mg Documented By: SEN Hydromorphone HCl (Hydromorphone 0.5 Mg Inj) 0.5 mg IV Q2H PRN PRN Reason: Pain, Severe (7-10) Last Admin: 03/04/23 23:16 Dose: 0.5 mg Documented By: Admin: 03/04/23 14:59 Dose: 0.5 mg Documented By: Admin: 03/04/23 11:20 Dose: 0.5 mg Documented By: Admin: 03/04/23 06:16 Dose: 0.5 mg Documented By: Admin: 03/04/23 02:09 Dose: 0.5 mg Documented By: Admin: 03/03/23 20:39 Dose: 0.5 mg Documented By: Admin: 03/03/23 17:27 Dose: 0.5 mg Documented By: NIKOLAS Hydromorphone HCl (Hydromorphone 1 Mg Inj) 0 mg IV Q5MIN PRN PRN Reason: Pain, Mild (1-3) Sodium Chloride (Normal Saline 0.9%) 1,000 mls @ 100 mls/hr IV NOW ONE Stop: 03/04/23 07:54 Last Admin: 03/03/23 21:57 Dose: 100 mls/hr Documented By: BUCK Lactated Ringer's (Lactated Ringers) 1,000 mls @ 42 mls/hr IV CONT MARK Last Admin: 03/05/23 14:59 Dose: 42 mls/hr Documented By: Infusion: 03/05/23 14:59 Dose: Infused Documented By: Admin: 03/04/23 19:41 Dose: 42 mls/hr Documented By: Admin: 03/04/23 16:47 Dose: Not Given Documented By: BT Cefazolin Sodium/Dextrose (Ancef) 100 mls @ 200 mls/hr IV NOW ONE Stop: 03/05/23 15:44 Last Infusion: 03/05/23 15:20 Dose: Infused Documented By: Admin: 03/05/23 15:15 Dose: 200 mls/hr Documented By: ADRYAN Lactated Ringer's (Lactated Ringers) 1,000 mls @ 100 mls/hr IV CONT MARK Last Infusion: 03/06/23 13:38 Dose: Infused Documented By: Admin: 03/06/23 00:11 Dose: 100 mls/hr Documented By: JOLENE Cefazolin Sodium/Dextrose (Ancef) 100 mls @ 200 mls/hr IV Q8H MARK Stop: 03/06/23 07:59 Last Infusion: 03/06/23 13:38 Dose: Infused Documented By: Admin: 03/06/23 08:37 Dose: 200 mls/hr Documented By: Infusion: 03/06/23 01:04 Dose: Infused Documented By: Admin: 03/06/23 00:12 Dose: 200 mls/hr Documented By: JOLENE Amiodarone HCl/Dextrose (Nexterone) 150 mg in 100 mls @ 600 mls/hr IV NOW ONE Stop: 03/05/23 20:54 Last Infusion: 03/05/23 21:34 Dose: Infused Documented By: Admin: 03/05/23 20:52 Dose: 600 mls/hr Documented By: JOLENE DILTIAZEM (Diltiazem 125 Mg/125 Ml-D5w) 125 mg in 125 mls @ 5 mls/hr IV TITRATE MARK; Protocol Last Titration: 03/06/23 06:05 Dose: 0 mg/hr, 0 mls/hr Documented By: Titration: 03/06/23 00:18 Dose: 2.5 mg/hr, 2.5 mls/hr Documented By: Titration: 03/05/23 23:32 Dose: 5 mg/hr, 5 mls/hr Documented By: Titration: 03/05/23 23:12 Dose: 10 mg/hr, 10 mls/hr Documented By: Titration: 03/05/23 22:33 Dose: 7.5 mg/hr, 7.5 mls/hr Documented By: Admin: 03/05/23 21:29 Dose: 5 mg/hr, 5 mls/hr Documented By: JOLENE POTASSIUM CHLORIDE IN WATER (Potassium Cl 10 Meq/100 Ml Shannan) 10 meq in 100 mls @ 100 mls/hr IV Q1H MARK Stop: 03/05/23 23:44 Last Infusion: 03/06/23 00:19 Dose: Infused Documented By: Admin: 03/05/23 23:04 Dose: 100 mls/hr Documented By: Infusion: 03/05/23 23:04 Dose: Infused Documented By: Admin: 03/05/23 22:00 Dose: 100 mls/hr Documented By: JOLENE Amiodarone HCl/Dextrose (Nexterone) 150 mg in 100 mls @ 600 mls/hr IV NOW ONE; Protocol Stop: 03/07/23 14:06 Last Admin: 03/07/23 14:08 Dose: 600 mls/hr Documented By: CRIS Amiodarone HCl/Dextrose (Nexterone) 360 mg in 200 mls @ 33.333 mls/hr IV NOW ONE; Protocol Stop: 03/07/23 20:09 Last Titration: 03/07/23 20:33 Dose: Infused Documented By: Admin: 03/07/23 14:20 Dose: 33.333 mls/hr, 33.33 mls/hr Documented By: CRIS Amiodarone HCl/Dextrose (Nexterone) 360 mg in 200 mls @ 16.7 mls/hr IV CONT MARK; Protocol Stop: 03/08/23 08:09 Last Admin: 03/07/23 20:32 Dose: 16.7 ml/hr, 16.7 mls/hr Documented By: AIYANA Amiodarone HCl/Dextrose (Nexterone) 180 mg in 100 mls @ 16.7 mls/hr IV CONT MARK; Protocol Stop: 03/08/23 14:10 Metoprolol Tartrate (Metoprolol Ir 25 Mg Tablet) 12.5 mg PO BID MARK Last Admin: 03/07/23 12:51 Dose: Not Given Documented By: Admin: 03/06/23 21:18 Dose: 12.5 mg Documented By: Admin: 03/06/23 09:38 Dose: 12.5 mg Documented By: Admin: 03/05/23 21:48 Dose: Not Given Documented By: Admin: 03/05/23 09:45 Dose: 12.5 mg Documented By: Admin: 03/04/23 19:43 Dose: 12.5 mg Documented By: Admin: 03/04/23 07:41 Dose: Not Given Documented By: BT Metoprolol Tartrate (Metoprolol Ir 25 Mg Tablet) 12.5 mg PO NOW ONE Stop: 03/04/23 07:41 Last Admin: 03/04/23 07:46 Dose: 12.5 mg Documented By: BT Metoprolol Tartrate (Metoprolol Tartrate 5 Mg/5 Ml Inj) 5 mg IV Q2HR PRN PRN Reason: Heart Rate- High Last Admin: 03/05/23 19:48 Dose: 2.5 mg Documented By: Admin: 03/04/23 09:41 Dose: 5 mg Documented By: BT Metoprolol Tartrate (Metoprolol Tartrate 5 Mg/5 Ml Inj) 2.5 mg IV NOW ONE Stop: 03/05/23 19:44 Last Admin: 03/05/23 19:49 Dose: Not Given Documented By: TAMIKO Metoprolol Tartrate (Metoprolol Ir 25 Mg Tablet) 25 mg PO BID [facility] Last Admin: 03/08/23 08:20 Dose: 25 mg Documented By: Admin: 03/07/23 21:37 Dose: 25 mg Documented By: Admin: 03/07/23 12:52 Dose: 25 mg Documented By: CRIS Morphine Sulfate (Morphine 4 Mg/Ml Inj) 4 mg IV NOW ONE Stop: 03/03/23 11:48 Last Admin: 03/03/23 11:58 Dose: 4 mg Documented By: MPO Naloxone HCl (Naloxone 0.4 Mg/Ml Vial) 0.2 mg IV Q2MIN PRN PRN Reason: Opiate Reversal Naloxone HCl (Naloxone 0.4 Mg/Ml Vial) 0.2 mg IV Q2MIN PRN PRN Reason: Opiate Reversal Ondansetron HCl (Ondansetron 4 Mg/2 Ml Inj) 4 mg IV NOW ONE Stop: 03/03/23 11:48 Last Admin: 03/03/23 12:00 Dose: 4 mg Documented By: MPO Ondansetron HCl (Ondansetron 4 Mg/2 Ml Inj) 4 mg IV Q8HR PRN PRN Reason: Nausea And Vomiting Last Admin: 03/03/23 14:59 Dose: 4 mg Documented By: AKP Ondansetron HCl (Ondansetron 4 Mg/2 Ml Inj) 4 mg IV Q6HR [facility] Last Admin: 03/06/23 06:09 Dose: Not Given Documented By: Admin: 03/06/23 00:13 Dose: Not Given Documented By: Admin: 03/05/23 18:17 Dose: Not Given Documented By: Admin: 03/05/23 12:01 Dose: Not Given Documented By: Admin: 03/05/23 06:14 Dose: 4 mg Documented By: Admin: 03/04/23 23:17 Dose: 4 mg Documented By: Admin: 03/04/23 17:05 Dose: 4 mg Documented By: Admin: 03/04/23 13:15 Dose: 4 mg Documented By: Admin: 03/04/23 06:16 Dose: 4 mg Documented By: Admin: 03/04/23 00:05 Dose: 4 mg Documented By: BUCK Ondansetron HCl (Ondansetron 4 Mg/2 Ml Inj) 4 mg IV NOW PRN PRN Reason: Nausea And Vomiting Ondansetron HCl (Ondansetron 4 Mg/2 Ml Inj) 4 mg IV Q4HR PRN PRN Reason: Nausea And Vomiting Ondansetron HCl (Ondansetron 4 Mg Odt) 4 mg PO Q4HR PRN PRN Reason: Nausea Last Admin: 03/06/23 04:22 Dose: 4 mg Documented By: JOLENE Oxycodone HCl (Oxycodone Ir 5 Mg Tablet) 5 mg PO Q3H PRN PRN Reason: Pain, Moderate (4-6) Last Admin: 03/08/23 04:25 Dose: 5 mg Documented By: Admin: 03/07/23 22:24 Dose: 5 mg Documented By: Admin: 03/07/23 18:59 Dose: 5 mg Documented By: CRIS Oxycodone HCl (Oxycodone Ir 5 Mg Tablet) 5 mg PO [place] PRN PRN Reason: Mild or moderate pain Polyethylene Glycol (Polyethylene Glycol 3350 17 Gm Powd.Pack) 17 gm PO DAILY PRN PRN Reason: Constipation Prochlorperazine (Prochlorperazine 10 Mg/2 Ml Vial) 5 mg IV Q6HR PRN PRN Reason: Nausea Last Admin: 03/04/23 10:35 Dose: 5 mg Documented By: Admin: 03/04/23 02:06 Dose: 5 mg Documented By: Admin: 03/03/23 18:24 Dose: 5 mg Documented By: CEW Sodium Chloride (Sodium Chloride 0.9% 500 Ml) 100 ml IV CONT MARK Last Admin: 03/03/23 21:58 Dose: Not Given Documented By: Vital Signs Vital signs: Vital Signs - 8 hr 03/03/23 11:15 03/03/23 11:24 03/03/23 11:30 Pulse Rate 89 88 86 Respiratory Rate 23 Blood Pressure 186/74 H 186/74 H 159/69 H Pulse Oximetry 100 99 100 Oxygen Delivery Method Room Air Room Air Room Air 03/03/23 12:00 03/03/23 12:30 Pulse Rate 87 83 Respiratory Rate 18 Blood Pressure 150/70 H 148/66 H Pulse Oximetry 100 100 Oxygen Delivery Method Room Air Room Air MDM - Fall Lab Data 03/08/23 08:14 03/08/23 08:14 Labs: Lab Results 03/03/23 Range/Units 11:53 WBC 7.3 (4.5-11.0) X10^3/uL RBC 4.46 (4.0-5.2) X10^6/uL Hgb 14.0 (12.0-16.0) g/dL Hct 41.8 (36-46) % MCV 93.8 (80-100) fL MCH 31.5 (26-34) PG MCHC 33.6 (30-36) % RDW 13.0 (11.6-14.8) % Plt Count 339 (150-400) X10^3/uL Neut % (Auto) 59.6 (50-75) % Lymph % (Auto) 29.6 (25-40) % [place] % (Auto) 8.1 (3-14) % Eos % (Auto) 1.8 L (2-4) % Baso % (Auto) 0.9 (0-2) % Neut # (Auto) 4400 (3204-5005) /uL Lymph # (Auto) 2200 (5471-2593) /uL [place] # (Auto) 600 (0-900) /uL Eos # (Auto) 100 (0-450) /uL Baso # (Auto) 100 (0-100) /uL PT 11.2 (10.1-12.7) SECONDS INR 1.0 (0.9-1.3) APTT 31 (26-36) SECONDS Sodium 139 (137-145) mmol/L Potassium 3.7 (3.4-5.1) mmol/L Chloride 106 (98-107) mmol/L Carbon Dioxide 25 (22-32) mmol/L BUN 12 (7-17) mg/dL Creatinine 0.72 (0.52-1.04) mg/dL Estimated GFR > 60 (>60) mL/min BUN/Creatinine Ratio 16.7 (6-22) Glucose 122 H (80-110) mg/dL Calcium 9.3 (8.4-10.2) mg/dL Total Bilirubin 0.5 (0.2-1.3) mg/dL AST 64 H (14-36) IU/L ALT 18 (<35) IU/L Alkaline Phosphatase 84 (38-126) U/L Total Protein 6.7 (6.3-8.2) g/dL Albumin 3.8 (3.5-5.0) g/dL Globulin 2.9 (1.7-4.1) g/dL Albumin/Globulin Ratio 1.3 (1.0-2.8) Imaging Data Extremity x-ray #1: Radiologist's Impression: [address] [address] XRay Report Signed Patient: Miracle Crystal MR#: [id number] : 1940 Acct:[id number] Age/Sex: 82 / F Date of Service: 03/03/23 Loc: ED Accession Number: [id number] Procedure: XR hip w pel if done LT 2V Ordering Provider: Celina Willis P.A-C PROCEDURE: XR HIP W PEL IF DONE LT 2V INDICATIONS: GLF on left hip TECHNIQUE: AP pelvis with lateral view(s) of the left hip(s). COMPARISON: None. FINDINGS: Bones: Acute fracture involving subcapital region of left femoral neck is seen with slight superior and inferior displacement of proximal femoral shaft in relation to femoral head. 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 No evidence of avascular necrosis of femoral head. Pelvic ring appears intact. No suspicious bony lesions. Soft tissues: The visualized bowel gas pattern is normal. No suspicious soft tissue calcifications. IMPRESSION: Acute displaced left femoral neck fracture as above. Dictated by: Bud Dent M.D. on 03/03/2023 at 11:29 Approved by: Bud Dent M.D. on 03/03/2023 at 11:30 [facility] Narrative Medical decision making narrative: [place]. She was walking her dogs and the dog pulled her off balance and she landed on her left hip. No prior history of broken hip. Denies any other injuries. Patient not on any blood thinners. Exam shows no shortening or rotation of the lower extremity. Foot and Ankle exposed. As well as thigh leg and knee. After history and exam x-ray left hip with pelvis, morphine Zofran CBC CMP coags, EKG, orthopedic consult [facility] CC: Left hip pain Complicating co-morbidities: None Data collected from: Patient Medical records reviewed: No recent visit for this complaint Differential considered: Includes but not limited to hip fracture pelvic fracture hip dislocation hip contusion Exam documented above, pertinent findings include: Limited range of motion of the left hip Lab Test results independently reviewed as above. Pertinent findings: WBC 7.3 hemoglobin 14 hematocrit 41 platelets 339 INR 1.0 sodium 139 potassium 3.7 BUN 12 creatinine 0.72 GFR greater than 60 Independently reviewed EKG sinus rhythm rate [address] elevation or depression Imaging studies independently reviewed: X-ray left hip shows femoral neck fracture Consultations: 11:58 a.m.. Spoke with Orthopedics Dr. Duran, will follow in consult, admit to hospitalist 1:33 p.m. s/w dr barriga, will admit pt Treatments: Morphine Zofran Re-evaluations: Reviewed results with patient and agrees and understands need for admission. Discussion: Appropriate for admission for surgical repair of fractured hip. Patient agrees with treatment plan. Diagnosis: Acute left hip fracture Discharge Plan Departure Patient Disposition: Admitted As Inpatient Clinical Impression: Fracture of femoral neck, closed Qualifiers: Encounter type: initial encounter Laterality: left Qualified Code(s): S72.002A - Fracture of unspecified part of neck of left femur, initial encounter for closed fracture Admit Date/Time: 03/03/23 13:33 Admit Provider: Saravanan Barriga
[2023-03-03 11:58] LABS: Prothrombin Time 11.2 SECONDS (10.1-12.7)
[2023-03-03] MEDS: MORPHINE 4 MG/ML INJ IV (11:58)
[2023-03-03 12:00] LABS: Add Manual Diff / Slide Review NO; Basophils Absolute Auto 100 /uL (0-100); Basophils Percent Auto 0.9 % (0-2); Eosinophils Absolute Auto 100 /uL (0-450); Eosinophils Percent Auto 1.8 % (2-4); Hematocrit 41.8 % (36-46); Lymphocytes Absolute Auto 2200 /uL (1100-4500); Lymphocytes Percent Auto 29.6 % (25-40); Mean Corpuscular HGB Conc 33.6 % (30-36); Mean Corpuscular Hemoglobin 31.5 PG (26-34); Mean Corpuscular Volume 93.8 fL (80-100); Monocytes Absolute Auto 600 /uL (0-900); Monocytes Percent Auto 8.1 % (3-14); Neutrophils Absolute Auto 4400 /uL (1500-7000); Neutrophils Percent Auto 59.6 % (50-75); Platelet Count 339 X10^3/uL (150-400); Red Blood Cell Count 4.46 X10^6/uL (4.0-5.2); White Blood Cell Count 7.3 X10^3/uL (4.5-11.0)
[2023-03-03] MEDS: ONDANSETRON 4 MG/2 ML INJ IV ×2 (12:00→14:59)
[2023-03-03 12:01] LABS: PTT Partial Thromboplastin Tim 31 SECONDS (26-36)
[2023-03-03 12:07] LABS: Alanine Aminotransferase 18 IU/L (<35); Albumin 3.8 g/dL (3.5-5.0); Albumin Globulin Ratio 1.3 (1.0-2.8); Alkaline Phosphatase 84 U/L (38-126); Aspartate Aminotransferase 64 IU/L (14-36); BUN Creatinine Ratio 16.7 (6-22); Bilirubin Total 0.5 mg/dL (0.2-1.3); Blood Urea Nitrogen 12 mg/dL (7-17); Calcium 9.3 mg/dL (8.4-10.2); Carbon Dioxide 25 mmol/L (22-32); Chloride 106 mmol/L (98-107); Estimated Glomerular Filt Rate > 60 mL/min (>60); Globulin 2.9 g/dL (1.7-4.1); Glucose 122 mg/dL (80-110); HEMOLYSIS 25 (0-50); Potassium 3.7 mmol/L (3.4-5.1); Sodium 139 mmol/L (137-145); Total Protein 6.7 g/dL (6.3-8.2)
[2023-03-03] MEDS: HYDROMORPHONE 1 MG INJ IV (12:39)
--- NOTE | 2023-03-03 12:42 | PC.NURSE ---
Pt stated that she was still feeling 6/10 pain after 4mg of IV morphine. Pt requested more pain medication. MD ordered Dilauded. Prior to medication admin, pt's friend stated that the pt could not remember falling and that she thought the pain medication may be kicking in. Assessed pt for neurological changes and no new deficits observed. Pt reported having a 6/10 pain and was able to recall events of fall and that she wanted more pain medication. MD aware.
[2023-03-03] MEDS: HYDROMORPHONE 0.5 MG INJ IV ×2 (17:27→20:39)
[2023-03-03] MEDS: PROCHLORPERAZINE 10 MG/2 ML VIAL 5 MG IV (18:24)
--- NOTE | 2023-03-03 18:57 | PC.NURSE ---
Pt's operation was cancelled for today. Pt expectedly disappointed. Still having nausea after zofran. MD called and Order received for compazine and was effective. Dilaudid has been effective for pain.
--- NOTE | 2023-03-03 20:25 | PM.HP.1 ---
History of Present Illness History of Present Illness Date Patient Seen: 03/03/23 Time Patient Seen: 08:00 Chief complaint: GLF, Left Hip Pain Narrative: Ms. Crystal is an 82W with no significant PMH, on no medications who presents after a fall. She was walking her dogs, and was pulled off balance and landed on her left hip. She was unable to ambulate and had significant pain so presented to the hospital. In the ED workup was done, vitals notable for afebrile, heart rate 80s, blood pressure 180s/70s, sats 100% on room air. Labs reviewed by me and notable for WBC 7.3, hgb 14, plts 339. creatinine 0.72. XRay shows acute displaced left femoral neck fracture. Ortho consulted and recommended needed repair. She was admitted for further treatment. [facility] Medical History Ganglion cyst of finger of right hand Surgical History History of cataract removal with insertion of prosthetic lens Social History household members: significant other Smoking Status: Former smoker alcohol intake: never Meds Home Medications and Allergies Home Medications Medication Instructions Recorded Confirmed Type No Known Home Medications 07/05/19 03/03/23 History Allergies Allergy/AdvReac Type Severity Reaction Status Date / Time nickel [NICKEL] Allergy Unknown Verified 07/05/19 08:13 Review of Systems Review of Systems Narrative: 14 systems reviewed and negative aside from what is noted in HPI Exam Vital Signs (past 8 hours): - 03/03/23 12:30 03/03/23 13:51 03/03/23 14:45 Temperature 98.7 F Pulse Rate 83 76 82 Respiratory Rate 18 14 16 Blood Pressure 148/66 H 128/56 L 140/53 L Pulse Oximetry 100 97 96 Oxygen Delivery Method Room Air Oxygen Flow Rate 0 03/03/23 15:42 03/03/23 18:00 03/03/23 19:55 Temperature 98.0 F 97.1 F L Pulse Rate 71 81 Respiratory Rate 16 20 Blood Pressure 131/52 L 126/50 L Pulse Oximetry 97 96 Oxygen Delivery Method Room Air Oxygen Flow Rate 0 0 Oxygen Delivery Method Room Air Oxygen Flow Rate 0 Narrative Exam Narrative: GEN: no acute distress CV: regular rate and rhythm PULM: clear bilaterally ABD: Soft, nontender EXT: warm and well perfused, left hip tenderness NEURO: awake, alert, oriented Objective Labs 03/03/23 11:53 03/03/23 11:53 Labs: Laboratory Results - last 24 hr 03/03/23 11:53 WBC 7.3 RBC 4.46 Hgb 14.0 Hct 41.8 MCV 93.8 MCH 31.5 MCHC 33.6 RDW 13.0 Plt Count 339 Neut % (Auto) 59.6 Lymph % (Auto) 29.6 [place] % (Auto) 8.1 Eos % (Auto) 1.8 L Baso % (Auto) 0.9 Neut # (Auto) 4400 Lymph # (Auto) 2200 [place] # (Auto) 600 Eos # (Auto) 100 Baso # (Auto) 100 PT 11.2 INR 1.0 APTT 31 Sodium 139 Potassium 3.7 Chloride 106 Carbon Dioxide 25 BUN 12 Creatinine 0.72 Estimated GFR > 60 BUN/Creatinine Ratio 16.7 Glucose 122 H Calcium 9.3 Total Bilirubin 0.5 AST 64 H ALT 18 Alkaline Phosphatase 84 Total Protein 6.7 Albumin 3.8 Globulin 2.9 Albumin/Globulin Ratio 1.3 Assessment & Plan Assessment & Plan narrative: 1. Acute left femoral neck fracture -patient NPO at midnight -ortho consulted for planned repair -IV pain medications ordered CODE: Full Proxy: Gretta Shukla, family I have discussed plan and obtained history from the patient. I have discussed plan of care with ED physician and bedside nurse. I have reviewed labs, imaging. Quality [facility] - Meds 'Current medications' to include all prescriptions, [id number] products, herbals, cannabis/cannabidiol products, and vitamin/mineral/dietary (nutritional) supplements. I have utilized all available resources to obtain, update, or review the patient?s current medications. [If Yes, STOP here]: Yes
[2023-03-03] MEDS: SODIUM CHLORIDE 0.9% 1,000 ML 100 ML IV (21:57)
[2023-03-04] VITALS (9 sets, daily range): BP systolic 107–149; BP diastolic 39–70; PULSE 52–130; RESP 14–22; TEMP 35.6–36.7; O2SAT 90–97
[2023-03-04] MEDS: ONDANSETRON 4 MG/2 ML INJ IV ×5 (00:05→23:17)
[2023-03-04] MEDS: PROCHLORPERAZINE 10 MG/2 ML VIAL 5 MG IV ×2 (02:06→10:35)
[2023-03-04] MEDS: HYDROMORPHONE 0.5 MG INJ IV ×5 (02:09→23:16)
[2023-03-04 06:52] LABS: Add Manual Diff / Slide Review NO; Basophils Absolute Auto 0 /uL (0-100); Basophils Percent Auto 0.4 % (0-2); Eosinophils Absolute Auto 100 /uL (0-450); Eosinophils Percent Auto 0.5 % (2-4); Hematocrit 36.7 % (36-46); Hemoglobin 12.4 g/dL (12.0-16.0); Lymphocytes Absolute Auto 1400 /uL (1100-4500); Lymphocytes Percent Auto 13.4 % (25-40); Mean Corpuscular HGB Conc 33.8 % (30-36); Mean Corpuscular Hemoglobin 31.3 PG (26-34); Mean Corpuscular Volume 92.6 fL (80-100); Monocytes Absolute Auto 900 /uL (0-900); Monocytes Percent Auto 8.4 % (3-14); Neutrophils Absolute Auto 8000 /uL (1500-7000); Neutrophils Percent Auto 77.3 % (50-75); Platelet Count 259 X10^3/uL (150-400); Red Blood Cell Count 3.96 X10^6/uL (4.0-5.2); Red Cell Distribution Width 13.1 % (11.6-14.8); White Blood Cell Count 10.3 X10^3/uL (4.5-11.0)
[2023-03-04 07:08] LABS: BUN Creatinine Ratio 16.9 (6-22); Blood Urea Nitrogen 12 mg/dL (7-17); Calcium 8.6 mg/dL (8.4-10.2); Carbon Dioxide 26 mmol/L (22-32); Chloride 105 mmol/L (98-107); Estimated Glomerular Filt Rate > 60 mL/min (>60); Glucose 110 mg/dL (80-110); HEMOLYSIS 17 (0-50); Sodium 136 mmol/L (137-145)
[2023-03-04] MEDS: METOPROLOL IR 25 MG TABLET 12.5 MG PO ×2 (07:46→19:43)
[2023-03-04] MEDS: METOPROLOL TARTRATE 5 MG/5 ML INJ IV (09:41)
--- NOTE | 2023-03-04 10:34 | PM.PN.1 ---
Subjective Subjective Interval history: Hip pain, no chest pain or dyspnea. Has PAF (since May), and it is active today. No chronic rate medications. Exam Vital Signs (past 8 hours): - 03/04/23 07:00 Temperature 97.1 F L Pulse Rate 130 H Respiratory Rate 16 Blood Pressure 149/62 H Pulse Oximetry 90 L Oxygen Flow Rate 0 Oxygen Delivery Method Room Air Oxygen Flow Rate 0 Narrative Exam Narrative: NAD Lungs clear with normal effort CV irregular and tachy, without M/G/R Abdomen Soft, NT/ND No rash No leg edema Objective Labs 03/04/23 06:10 03/04/23 06:10 Labs: Laboratory Results - last 24 hr 03/03/23 03/04/23 11:53 06:10 WBC 7.3 10.3 RBC 4.46 3.96 L Hgb 14.0 12.4 Hct 41.8 36.7 MCV 93.8 92.6 MCH 31.5 31.3 MCHC 33.6 33.8 RDW 13.0 13.1 Plt Count 339 259 Neut % (Auto) 59.6 77.3 H Lymph % (Auto) 29.6 13.4 L Morgan % (Auto) 8.1 8.4 Eos % (Auto) 1.8 L 0.5 L Baso % (Auto) 0.9 0.4 Neut # (Auto) 4400 8000 H Lymph # (Auto) 2200 1400 Morgan # (Auto) 600 900 Eos # (Auto) 100 100 Baso # (Auto) 100 0 PT 11.2 INR 1.0 APTT 31 Sodium 139 136 L Potassium 3.7 4.0 Chloride 106 105 Carbon Dioxide 25 26 BUN 12 12 Creatinine 0.72 0.71 Estimated GFR > 60 > 60 BUN/Creatinine Ratio 16.7 16.9 Glucose 122 H 110 Calcium 9.3 8.6 Total Bilirubin 0.5 AST 64 H ALT 18 Alkaline Phosphatase 84 Total Protein 6.7 Albumin 3.8 Globulin 2.9 Albumin/Globulin Ratio 1.3 PFSH Medical History Ganglion cyst of finger of right hand Surgical History History of cataract removal with insertion of prosthetic lens Social History household members: significant other Smoking Status: Former smoker alcohol intake: never Assessment & Plan Assessment & Plan narrative: 1. Acute left femoral neck fracture, POA. -patient NPO at midnight -ortho consulted for planned repair today at 17:00 -IV pain medications ordered 2. PAF with RVR, POA. -PO metoprolol and IV metoprolol PRN. CODE: Full Proxy: Gretta Mendezami, family I have discussed plan and obtained history from the patient. I have discussed plan of care with ED physician and bedside nurse. I have reviewed labs, imaging. Time Spent With Patient Time with patient: 30 to 49 minutes with 50% spent counseling/coordinating care
--- NOTE | 2023-03-04 11:01 | DI.ECHO.S_ITS ---
[facility]---------+ [facility] +---------+ : : [address] : : : : [id number] : : : : Phone: [phone]---------+ Echocardiogram Report + + :Name: GUILLERMO GRANT Study Date: 03/04/2023 Height: 70 in : :[facility] ReadingLocation: Weight: 239 lb : : Gender: Female BSA: 2.3 m2 : :: 1940 Age: 82 yrs BP: 117/70 mmHg: :Reason For Study: ATRIAL FIB : :Ordering Physician: YANIQUE, : :HARSHA Lovett Performed By: Omaira Chris : :Referring: HARSHA CHANEL : + + Interpretation Summary Normal sinus rhythm. Normal LV size and wall thickness. Normal wall motion and LV systolic function. Ejection fraction is 55-60%. Normal chamber sizes. No significant valvular abnormalities. No prior study available for comparison. Procedure: A two-dimensional transthoracic echocardiogram with color flow and Doppler was performed. The study quality was technically adequate. There is no prior echocardiogram noted for this patient. The patient was in sinus rhythm with heart rates between 57-67 bpm during the exam. Left Ventricle: The left ventricle is normal in size and wall thickness. The ejection fraction is estimated to be 55-60%. Right Ventricle: The right ventricle is normal in size and function. Atria: The left atrial size is normal. Right atrial size is normal. There is no Doppler evidence for an interatrial shunt. Mitral Valve: The mitral valve is normal in structure and function. There is trace mitral regurgitation. Aortic Valve: The aortic valve is trileaflet. The aortic valve opens well. There is no aortic valve stenosis. No aortic regurgitation is present. Tricuspid Valve: The tricuspid valve is normal in structure and function. There is mild tricuspid regurgitation. The right ventricular systolic pressure is estimated to be at least 40 mmHg based on an estimated right atrial pressure of 8 mm Hg. Pulmonic Valve: The pulmonic valve leaflets are thin and pliable; valve motion is normal. There is trace pulmonic regurgitation. Great Vessels: The aortic root is normal size. The dimensions of the ascending aorta are normal. The IVC is dilated (diameter is greater than 2.1 cm) yet it collapses greater than 50% with a sniff. This suggests a right atrial pressure of 8 mm Hg. Pericardium/ Pleura There is no pericardial effusion. There is no pleural effusion. MMode/2D Measurements & Calculations LVIDd: 5.3 cm LVOT diam: 2.1 cm LVIDs: 3.5 cm Ao root diam: 3.1 cm FS: 34.8 % asc Aorta Diam: 2.8 cm IVSd: 0.99 cm LVPWd: 0.97 cm LV sánchez. diameter/BSA (cm/m^2): 2.4 LV sys. diameter/BSA (cm/m^2): 1.5 LA A2 area: 22.7 cm2 RA long axis: 5.5 cm LA A4 area: 23.5 cm2 RA area: 15.9 cm2 LA length (vol): 6.3 cm RA vol: 39.2 ml LA vol: 72.4 ml RA : 17.4 ml/m2 LA vol index: 32.1 ml/m2 IVC diam: 2.1 cm RVD1 (basal): 3.7 cm RVD2 (mid): 3.0 cm TAPSE: 2.0 cm Doppler Measurements & Calculations Ao V2 max: 161.5 cm/sec LVOT Max Valeriy: 112.4 cm/sec Ao V2 mean: 105.2 cm/sec LV V1 max P.1 mmHg Ao max P.4 mmHg LV V1 VTI: 23.5 cm Ao mean P.0 mmHg JOSE(I,D): 2.3 cm2 Ao V2 VTI: 34.0 cm JOSE(V,D): 2.4 cm2 sev ratio: 0.69 JOSE indexed to BSA (cm^2/m^2): 1.0 MV E max valeriy: 79.1 cm/sec TR max valeriy: 285.4 cm/sec MV A max valeriy: 80.0 cm/sec TR max P.6 mmHg MV E/A: 0.99 PA V2 max: 85.7 cm/sec Med Peak E' Valeriy: 7.7 cm/sec PA V2 mean: 59.4 cm/sec E/E' med: 10.2 PA mean P.6 mmHg Lat Peak E' Valeriy: 8.7 cm/sec PA pr(Accel): 36.2 mmHg E/E' lat: 9.1 E/e' average: 9.6 MV dec time: 0.25 sec SV(LVOT): 79.9 ml Electronically signed by: Maya Quick M.D. on Reading Physician:03/04/2023 02:35 PM
[2023-03-04] MEDS: LACTATED RINGERS 1,000 ML 42 ML IV (19:41)
[2023-03-04] MEDS: ACETAMINOPHEN 325 MG TABLET 650 MG PO (19:42)
[2023-03-05] VITALS (32 sets, daily range): BP systolic 95–151; BP diastolic 37–100; PULSE 71–153; RESP 2–26; TEMP 36.2–36.9; O2SAT 89–98; BMI 34.2
--- NOTE | 2023-03-05 | DI.RAD.S_ITS ---
PROCEDURE: XR HIP W PEL IF DONE LT 2V INDICATIONS: INTRAOP TECHNIQUE: 3 intraoperative fluoroscopic views of pelvis and left hip acquired. COMPARISON: [facility], CR, XR HIP W PEL IF DONE LT 2V, 03/03/2023, 11:13. FINDINGS: Intraoperative fluoroscopic images shows left total hip arthroplasty in progress. Left hip alignment is anatomic. IMPRESSION: Fluoro guidance was provided intraoperatively for left total hip arthroplasty. Dictated by: Bud Dent M.D. on 03/05/2023 at 18:54 Approved by: Bud Dent M.D. on 03/05/2023 at 18:54
[2023-03-05] MEDS: ONDANSETRON 4 MG/2 ML INJ IV (06:14)
[2023-03-05] MEDS: METOPROLOL IR 25 MG TABLET 12.5 MG PO (09:45)
--- NOTE | 2023-03-05 10:43 | P.PN_ITS ---
Subjective Subjective Interval history: She is doing well. She is able to wean off from oxygen this morning is using incentive spirometry. Her hip pain is manageable. She denies any chest pain. She is scheduled for ORIF today. Her atrial fibrillation resolved last night, she has PAF from her counts since May. An echo yesterday was unremarkable. Exam Vital Signs (past 8 hours): - 03/05/23 03:00 03/05/23 09:59 Temperature 97.3 F L 97.5 F L Pulse Rate 80 Respiratory Rate 17 Blood Pressure 142/61 H 145/63 H Pulse Oximetry 97 93 Oxygen Flow Rate 2 0 Oxygen Delivery Method Nasal Cannula Oxygen Flow Rate 0 Narrative Exam Narrative: No acute distress, fluent speech. Lungs are clear, normal effort. Heart is regular, no murmur gallop or rub. Abdomen is soft, non-distended. Extremities are free of edema. Objective Labs 03/04/23 06:10 03/04/23 06:10 [facility] Medical History Ganglion cyst of finger of right hand Surgical History History of cataract removal with insertion of prosthetic lens Social History household members: significant other Smoking Status: Former smoker alcohol intake: never Assessment & Plan Assessment & Plan narrative: Assessment & Plan Assessment & Plan narrative: 1. Acute left femoral neck fracture, POA. -patient NPO at midnight -ortho consulted for planned repair today at -IV pain medications ordered 2. PAF with RVR, POA. -PO metoprolol and IV metoprolol PRN. -assess for anticoagulation prior to discharge. 3. Acute hypoxic respiratory failure, present on admission and resolved. Monitor clinically. CODE: Full Proxy: Gretta Shukla, family Time Spent With Patient Time with patient: 30 to 49 minutes with 50% spent counseling/coordinating care
--- NOTE | 2023-03-05 14:35 | P.HP_ITS ---
History of Present Illness History of Present Illness Date Patient Seen: 03/05/23 Time Patient Seen: 14:36 Date of Onset of Symptoms: 03/03/23 Chief complaint: GLF, Left Hip Pain Narrative: 82-year-old female seen in preoperative holding area in preparation for surgery. I also visited her last night. She is a very active 82-year-old female who had a ground level fall sustaining a displaced femoral neck fracture. She walks an estimated 5000 steps per day and frequently goes on 1/2 mi walks. She lives independently along with her . She has no discernible dementia. Her medical comorbidities are very limited although she was diagnosed with atrial fibrillation during this admission. [facility], LAT[facility] Medical History Ganglion cyst of finger of right hand Surgical History History of cataract removal with insertion of prosthetic lens Social History household members: significant other Smoking Status: Former smoker alcohol intake: never Meds Home Medications and Allergies Home Medications Medication Instructions Recorded Confirmed Type No Known Home Medications 07/05/19 03/03/23 History Allergies Allergy/AdvReac Type Severity Reaction Status Date / Time nickel [NICKEL] Allergy Unknown Verified 07/05/19 08:13 Review of Systems Review of Systems ROS: Yes All systems reviewed with the patient and are negative except as otherwise documented Exam Vital Signs (past 8 hours): - 03/05/23 09:59 03/05/23 13:50 Temperature 97.5 F L 98.5 F Pulse Rate 80 71 Respiratory Rate 18 Blood Pressure 145/63 H 148/58 H Pulse Oximetry 93 96 Oxygen Flow Rate 0 2 Oxygen Delivery Method Nasal Cannula Oxygen Flow Rate 2 Narrative Exam Narrative: Left lower extremity examination demonstrates no lesions on the front of the thigh. Sensation intact to light touch in L2 through S1 nerve distributions. Foot is warm and well perfused. Range of motion examination deferred given known injury Const General: cooperative Orientation: alert and awake [facility] Head: normal to inspection Ears: hearing grossly normal bilaterally Eyes General: appearance normal, both eyes and all related structures Neck Neck: normal visual inspection Resp Effort & Inspection: normal respiratory effort and able to speak in complete sentences Cardio Pulses: other (peripheral pulses present) Skin Lesions: no lesions Rashes: no rashes Neuro General: patient alert, patient awake and moves all extremities Psych Appearance: grossly normal Objective Imaging Pelvis x-ray: My impression: Displaced left femoral neck fracture Labs 03/04/23 06:10 03/04/23 06:10 Assessment & Plan Assessment and plan (1) Fracture of femoral neck, closed: Qualifiers: Encounter type: initial encounter Laterality: left Qualified Code(s): S72.002A - Fracture of unspecified part of neck of left femur, initial encounter for closed fracture Status: Acute Assessment & Plan narrative: Her surgery was delayed due to a cardiac workup for her new diagnosis of atrial fibrillation and anesthesia internal medicine eventually determined that she was optimized for surgery. Now that she has been optimized for surgery we are going to proceed with replacement. Given her very high activity levels, lack of cognitive decline, and minimal comorbidities for patient of her age I am going to do a total hip arthroplasty rather than a hemiarthroplasty. I discussed the risks and benefits of the procedure with her today. A total hip arthroplasty will eliminate the possibility of acetabular sided wear group home following a hemiarthroplasty which she would be high risk for given her anticipated longevity given her overall good health. Informed consent was obtained and the operative site was marked today.
--- NOTE | 2023-03-05 14:46 | CM.DANOTE ---
Initial DCP Assessment Note Reviewed EMR and team rounds for pt's status and anticipated d/c needs. Pt was in surgery at the time of this EMT DISPATCHER assessment, will continue to monitor and meet with pt tomorrow. Payor: [facility] PCP: Aleja Hawk Pt is a 82 year-old F who was brought into the ED by EMS on 03/03 after she sustained a ground level fall at a park while walking her dogs. CT imaging was positive for a L-hip fracture, she was admitted for further evaluation. Ortho consulted, will plan surgery for 03/05 for repair. Pt resides w/her SO independently in their own home. DCP to continue to follow and assist with care plan needs as they evolve. Discharge Planning/Care Management Advanced directive, confirm from FAMILY Start: 03/03/23 14:48 Freq: Q24H Status: Active Protocol: Document 03/03/23 14:48 CEW (Rec: 03/03/23 18:42 CEW [id number]) Advance Directive, confirm on record Time 15:00 Person contacted pt/friend Copy received Yes Document 03/04/23 14:48 BT (Rec: 03/04/23 14:58 BT [id number]) Advance Directive, confirm on record Time 15:00 Person contacted pt/friend Copy received Yes Document 03/05/23 13:55 BT (Rec: 03/05/23 13:55 BT [id number]) Advance Directive, confirm on record Time 15:00 Person contacted pt/friend Copy received Yes CM Discharge Assessment Start: 03/05/23 14:42 Freq: Status: Active Protocol: Document 03/05/23 14:42 DPL (Rec: 03/05/23 14:46 DPL [id number]) Discharge Planning Assessment Assigned Managing Jeweler TERRY Bhandari DPOA/Assigned Designee Name TERRY Bhandari Advance Directives? Yes Advance Directives on File No History Provided By Medical Record Has Patient been admitted in last 30 No days? Prior Living Arrangements House Household Members significant other Type of transporation used prior to Drives own vehicle admit Independent with ADL's Yes Is patient alert and oriented? Yes Caregiver for Another No Comment N/A Comment N/A Comment Pending PT/OT recommendations post-surgery. Barriers to Discharge No Discharge Plan Home Transportation Arrangement N/A Referrals Initiated None needed Review Status In Process Please Provide Date Initial DC 03/05/23 Assessment Was Performed
[2023-03-05] MEDS: LACTATED RINGERS 1,000 ML 42 ML IV (14:59)
[2023-03-05] MEDS: CEFAZOLIN 2 GM/100 ML PREMIX 100 ML IV (15:15)
[2023-03-05] MEDS: SODIUM CHLORIDE IRRIG SOLUTION 1,000 ML, TRANEXAMIC ACID 1,000 MG IRR (16:30)
--- NOTE | 2023-03-05 16:44 | SUR.OPER ---
Patient supine on padded [place] table, one arm on padded arm board at <90, other arm padded and secured with tape across patient's chest, both legs secured in padded traction boots and positioned per surgeon, padded post at patient's groin, pressure points checked and padded.
[2023-03-05] MEDS: ROPIVACAINE/EPI/CLONIDINE/KET 50 ML SYRINGE INJ (16:51)
--- NOTE | 2023-03-05 18:54 | PM.OP.1 ---
Operative Date/Time/Diagnoses Date of procedure: 03/05/23 Time of procedure: 16:00 Pre-op diagnosis: Left femoral neck fracture Post-op diagnosis: same Procedure & Clinicians Procedure: Left total hip arthroplasty for femoral neck fracture Same procedure as scheduled: Yes Surgeon: Juve Duran Transit Mixer Driver: Trevor Shaikh Anesthesia Type: General and Local Operative Notes Findings: Displaced left femoral neck fracture Prosthetic devices, grafts, tissues, transplants, or devices: 52 mm pinnacle cup with 2 screws and size 2 standard offset C stem with +8.5 36 mm head Estimated Blood Loss (mL): 350 Procedure in detail: This 82-year-old female was admitted to the hospital with a displaced left femoral neck fracture. She required a prolonged inpatient stay prior to surgery due to a new diagnosis of atrial fibrillation. After optimization in conjunction with my colleagues from Internal Medicine and anesthesia we were able to proceed with surgery today. She reports being very active at baseline, walking 5000 steps per day and going on 1/2 mi walks regularly for exercise. She has no discernible dementia and minimal medical comorbidities other than her new diagnosis of atrial fibrillation. Based on these factors I felt that she would likely wear out her acetabulum and require eventual conversion to total hip arthroplasty if I proceeded with a hemiarthroplasty. I therefore recommended total hip arthroplasty. After discussing these options with her she wished to proceed. Informed consent was obtained. The operative site was marked. She was brought back to the operating room and spinal anesthesia was attempted. Due to her fracture this was attempted in a lateral position. It eventually had to be aborted due to inability to obtain a spinal. The anesthesiologist then elected to move forward with general anesthesia. This was induced and she was transferred to the [place] table. Cheikh Shaikh was my assistant to the president during the procedure and his assistance was necessary for positioning, soft tissue retraction, room set up, and closure. A time-out procedure was performed. Ancef and tranexamic acid were administered A direct anterior approach to the hip was utilized. I split the fascia overlying the TFL and retracted it laterally. I dissected down to the hip capsule and spread the tissue between the rectus and the TFL. The lateral circumflex vessels were identified and coagulated. Cobra retractors were placed superior and inferior to the femoral neck. A release was performed of the reflected head of rectus. A capsulotomy was performed. Significant hematoma was decompressed from the fracture when the capsule was opened. The fracture was identified. The femoral head was removed and a freshening cut was made. A soft tissue retractor was placed inside the wound. They were tagged stitches placed in the capsule for manipulation later during the procedure. Retractors were placed on the anterior wall and posterior wall and the femoral head was measured at 48 mm. I reamed up to a size 51 mm under fluoroscopy while watching on an appropriate AP pelvis. Once I had reamed deeply enough I impacted a size 52 cup under fluoroscopic visualization ensuring I had an appropriate ellipse and abduction angle. Once satisfied with this I placed 2 screws. The screw lengths were different than I typically obtained during this procedure so I obtained Judet views of the pelvis to ensure they were in bone. I was satisfied with these views. I impacted in a liner for a 36 mm head which did have a limited polyethylene thickness but I felt was not a concern in a patient who is an octogenarian. I then removed all of the retractors A [place] hook was placed in the lateral femur. A retractor was placed over the greater trochanter and I released the lateral capsule over to the nose of the greater trochanter to allow the lateral capsule to be retracted over to the medial side. I then externally rotated the hip to 90? and with traction off hyperextended and adducted the leg. I released the conjoined tendon after placing retractors over the greater trochanter and the calcar to ensure maximum mobility of the femur given that the indication for the surgery was a fracture. I elevated and externally rotated the hip and broached up to a size 2 C stem. I placed a standard offset neck and a 1.5 mm head on the broach and reduced this. On fluoroscopy I noted that there was grossly appropriate leg length but the neck of the trial had come disengaged and I had insufficient offset. I planned to go up to a +5 head and sink the stem to restore my leg lengths to what I had during trialing while accounting for the fact that the neck had come disengaged. I thought this would supply sufficient offset. Before moving onto cementing the stem I maximally externally rotated the hip and did a 45 degree drop test. The hip was stable through both of these. The hip was then dislocated and hyperextended and adducted. I calcar planed in the broach height that I had previously obtained fluoroscopy views at and plan to sink the stem below this slightly. A canal senior architect was used to irrigate the canal and then a cement restrictor was placed. I again irrigated the canal after this. I placed epinephrine-soaked vaginal packing down the canal and placed a whistle-tip catheter next to that. Cement was inserted down the canal. I digitally impacted that and used a rn homecare to further pressurize the cement. I placed the size 2 standard offset C stem and applied a valgus force on it to ensure that it would not sit in varus. I then placed my planned +5 mm 36 mm femoral head after waiting for the cement to dry and cleaning the trunnion. All retractors were removed and the hip was brought back up and I reduced it. After reduction I noted that the hip was stable with maximum external rotation but dislocated anteriorly with a 45 degree drop test. I also noted that on my AP pelvis I still had less offset than desired. After moving to an AP hip I determined that the reason I had insufficient offset was that my valgus moment on the stem had pushed the stem into valgus reducing my offset. This was in my opinion the likely source of my instability with a 45 degree drop test. I therefore dislocated the hip removed the +5 head and trialed with a +8.5 head. At that time my offset was improved and the hip was now stable through a 45 degree drop test. Fluoroscopic imaging on an AP pelvis demonstrated appropriate leg lengths. Being satisfied with this construct I again moved back to the broaching position, removed the trial head, and impacted a +8.5 mm ceramic head onto a clean dry trunnion. I reduced the hip and obtained final fluoroscopic images while soaking the hip in a mixture of dilute Betadine and peroxide. The hip was irrigated and the capsule was closed. A mixture of ropivacaine epinephrine clonidine and Toradol was infiltrated throughout the wound. I then closed the TFL fascia with Stratafix and used a Stratafix in the fat layer before closing the skin with 2-0 and 3-0 Monocryl. Dermabond and an Aquacel dressing were applied and the patient was transferred off of the [place] table and brought to the PACU Post-operative Plan for aftercare: Weightbearing as tolerated Recommend aspirin DVT prophylaxis Anticipate discharge home following mobilization Follow-up in 2 weeks at [facility] for wound check
--- NOTE | 2023-03-05 19:09 | DI.RAD.S_ITS ---
PROCEDURE: XR HIP W PEL IF DONE LT 2V INDICATIONS: post op TECHNIQUE: AP pelvis and lateral view of the left hip acquired. COMPARISON: [facility], [facility], XR HIP W PEL IF DONE LT 2V, 03/05/2023, 17:05. FINDINGS: Bones: Patient is status post left hip arthroplasty, with hardware components in expected positions. The hip joint appears congruent. The visualized bony structures appear intact. Soft tissues: Overlying postoperative changes are noted. No suspicious soft tissue densities. IMPRESSION: Postop changes from left total hip arthroplasty with anatomic left hip alignment. Dictated by: Bud Dent M.D. on 03/05/2023 at 19:58 Approved by: Bud Dent M.D. on 03/05/2023 at 19:58
--- NOTE | 2023-03-05 19:29 | SUR.PHASEI ---
Addendum entered by Meryl Malin R.N. 03/05/23 21:32: [id number] - Received and completed orders from Dr. Bauman for EKG. Dr. Bauman discussed patient situation and rhythm with hospitalist who both agree on transfer to ICU. Dr. Bauman placed order to transfer to ICU, amiodarone, chest x-ray, and labs. This nurse transferred patient to ICU [address] on all monitors [address] Dr. Bauman. Gave report to Pamela MCCLURE and assisted setting patient up in room. Patient sustaining in AFIB RVR in the 140's. Chest x-ray completed and Pamela MCCLURE acquiring amiodarone gtt to start. Patient remains drowsy, but responding to questions. Denied pain throughout entire pacu stay. Addendum entered by Meryl Malin R.N. 03/05/23 20:14: [id number] - Dr. Bauman at bedside. Patient continues to go in and out of a rapid rate to the 150's and and NSR. Metoprolol given per order. Dr. Bauman attempting to contact hospitalist to see if patient should go back to room or be admitted to ICU. Original Note: [id number] Dr. Silvestre (anesthesia) at bedside to do block. Timeout completed per protocol. Patient on all monitors and on 4L O2 throughout procedure. 1919 - While anesthesia at bedside after block patient's heart rate went up to 140's Rapid Aflutter. Converted back to NSR on her own. Patient continued to go in and out of rapid aflutter and back to NSR with anesthesia and Dr. Bauman present. Blood pressure stable throughout. No new orders noted from anesthesia or Dr. Bauman. 1942 - Patient continues to go in and out of a rapid rate in the 140's. Patient resting peacefully. 94% on 4L NC. Patient follows commands to gun sealing machine operator hands and make eye contact, but is drowsy. FOUNTAIN CLERK Marge notified anesthesiologist and received order to give metoprolol 2.5mg IV now and then okay to transfer back to her room.
[2023-03-05] MEDS: METOPROLOL TARTRATE 5 MG/5 ML INJ IV (19:48)
--- NOTE | 2023-03-05 20:24 | DI.RAD.S_ITS ---
PROCEDURE: XR CHEST 1V INDICATIONS: Unstable cardiac rhythm. TECHNIQUE: One view of the chest was acquired. COMPARISON: [facility], CR, XR CHEST 1V, 05/26/2018, 18:41. FINDINGS: Surgical changes and devices: None. Lungs and pleura: Lungs appear clear. No pleural effusions or pneumothorax. Mediastinum: Mediastinal contours appear unchanged. Heart size is prominent, unchanged. Bones and chest wall: No suspicious bony lesions. Overlying soft tissues appear unremarkable. IMPRESSION: No acute cardiopulmonary abnormality. Dictated by: Leroy Motta M.D. on 03/05/2023 at 23:18 Approved by: Leroy Motta M.D. on 03/05/2023 at 23:18
--- NOTE | 2023-03-05 20:28 | P.PN_ITS ---
Subjective Subjective Interval history: I have been monitoring the patient postoperatively in the PACU since my surgery. She has been on the monitor and has had atrial fibrillation, atrial flutter, premature ventricular contractions and junctional rhythms. She has been somnolent but interactive. She has been maintaining her own airway. She has not complained of chest pain. She had 1 episode of hypotension to 89/67. She has had hypoxia during periods of elevated heart rate. Her heart rate has been as high as the 150s. I have called the on-call tele resident surgeon. I was instructed to give her 150 mg amiodarone IV and have ordered this. I was also instructed to order a number of labs including troponin CBC CMP lactate ABG and a chest x-ray. I have ordered these. The plan is for the patient to be transferred to the ICU and I have placed an admit to ICU order under the previous admitting physician. Exam Vital Signs (past 8 hours): - 03/05/23 13:50 03/05/23 14:45 03/05/23 18:51 Temperature 98.5 F 97.4 F L 97.2 F L Pulse Rate 71 78 89 Respiratory Rate 18 16 23 Blood Pressure 148/58 H 144/70 H 103/47 L Pulse Oximetry 96 96 91 Oxygen Delivery Method Nasal Cannula Room Air Oxygen Flow Rate 2 2 0 03/05/23 18:56 03/05/23 19:01 03/05/23 19:05 Temperature Pulse Rate 100 H 89 75 Respiratory Rate 20 21 16 Blood Pressure 105/59 L 115/58 L 103/48 L Pulse Oximetry 96 96 96 Oxygen Delivery Method Nasal Cannula Nasal Cannula Nasal Cannula Oxygen Flow Rate 4 4 4 03/05/23 19:10 03/05/23 19:15 03/05/23 19:30 Temperature 97.4 F L 97.2 F L 97.2 F L Pulse Rate 82 89 98 H Respiratory Rate 20 23 22 Blood Pressure 123/37 L 118/63 144/68 H Pulse Oximetry 89 L 96 94 Oxygen Delivery Method Nasal Cannula Room Air Nasal Cannula Oxygen Flow Rate 4 4 4 03/05/23 20:11 Temperature 97.9 F Pulse Rate 141 H Respiratory Rate 22 Blood Pressure 102/60 Pulse Oximetry 94 Oxygen Delivery Method Nasal Cannula Oxygen Flow Rate 4 Oxygen Delivery Method Nasal Cannula Oxygen Flow Rate 4 Objective Labs 03/04/23 06:10 03/04/23 06:10 [facility] Medical History Ganglion cyst of finger of right hand Surgical History History of cataract removal with insertion of prosthetic lens Social History household members: significant other Smoking Status: Former smoker alcohol intake: never
[2023-03-05] MEDS: AMIODARONE 150 MG/100 ML PIGGYBACK 600 MG IV (20:52)
--- NOTE | 2023-03-05 21:17 | PM.CN.EICU ---
History of Present Illness Consult details IF CAMERA ACTIVATED, patient seen via real-time interactive audiovisual communication: Camera activated Date Patient Seen: 03/05/23 Chief complaint: GLF, Left Hip Pain Consent obtained for tele-public welfare worker care: Yes Patient Location: ICU Provider location (State): [place] Other participants/roles: KAMI Mcnulty Narrative: Patient is a 82 year old female with who presents with a ground level fall. On admission she was found to have a fracture left femoral neck. She was found to be in A fib and procedure was aborted yesterday for further cardiac optimization. She was taken to OR today and underwent left hip arthroplasty. Postoperative patient went into A fib w/ RVR. Started on amiodarone bolus and HR remains in the 140s. Brought to ICU for further management. At the time of my assessment patient is waking up from anesthesia. HR is in the 140s and SBP ~140s. Started on diltiazem gtt. PFSH Medical History Ganglion cyst of finger of right hand Surgical History History of cataract removal with insertion of prosthetic lens Social History household members: significant other Smoking Status: Former smoker alcohol intake: never Current Medications Current Medications Medications: Home Medications No Known Home Medications 07/05/19 [History Confirmed 03/03/23] Visit Medications (administered) Generic Name Dose Route Start Last Admin Trade Name Freq PRN Reason Stop Dose Admin Acetaminophen 650 mg 03/03/23 14:22 03/04/23 19:42 Acetaminophen 325 Mg Tablet PO 650 mg Q6H PRN Administration Fever/Mild Pain (1-3) Lactated Ringer's 1,000 mls @ 42 mls/hr 03/04/23 16:45 03/05/23 14:59 Lactated Ringers IV 42 mls/hr CONT MARK Administration Metoprolol Tartrate 12.5 mg 03/04/23 09:00 03/05/23 09:45 Metoprolol Ir 25 Mg Tablet PO 12.5 mg BID MARK Administration Metoprolol Tartrate 5 mg 03/04/23 09:11 03/05/23 19:48 Metoprolol Tartrate 5 Mg/5 Ml Inj IV 2.5 mg Q2HR PRN Administration Heart Rate- High Ondansetron HCl 4 mg 03/04/23 00:00 03/05/23 18:17 Ondansetron 4 Mg/2 Ml Inj IV Not Given Q6HR [facility] Prochlorperazine 5 mg 03/03/23 18:01 03/04/23 10:35 Prochlorperazine 10 Mg/2 Ml Vial IV 5 mg Q6HR PRN Administration Nausea Exam Vital Signs (past 8 hours): - 03/05/23 13:50 03/05/23 14:45 03/05/23 18:51 Temperature 98.5 F 97.4 F L 97.2 F L Pulse Rate 71 78 89 Respiratory Rate 18 16 23 Blood Pressure 148/58 H 144/70 H 103/47 L Pulse Oximetry 96 96 91 Oxygen Delivery Method Nasal Cannula Room Air Oxygen Flow Rate 2 2 0 03/05/23 18:56 03/05/23 19:01 03/05/23 19:05 Temperature Pulse Rate 100 H 89 75 Respiratory Rate 20 21 16 Blood Pressure 105/59 L 115/58 L 103/48 L Pulse Oximetry 96 96 96 Oxygen Delivery Method Nasal Cannula Nasal Cannula Nasal Cannula Oxygen Flow Rate 4 4 4 03/05/23 19:10 03/05/23 19:15 03/05/23 19:30 Temperature 97.4 F L 97.2 F L 97.2 F L Pulse Rate 82 89 98 H Respiratory Rate 20 23 22 Blood Pressure 123/37 L 118/63 144/68 H Pulse Oximetry 89 L 96 94 Oxygen Delivery Method Nasal Cannula Room Air Nasal Cannula Oxygen Flow Rate 4 4 4 03/05/23 20:11 Temperature 97.9 F Pulse Rate 141 H Respiratory Rate 22 Blood Pressure 102/60 Pulse Oximetry 94 Oxygen Delivery Method Nasal Cannula Oxygen Flow Rate 4 Oxygen Delivery Method Nasal Cannula Oxygen Flow Rate 4 Objective Labs 03/04/23 06:10 03/04/23 06:10 Assessment & Plan Assessment & Plan narrative: NEURO: # Acute encephalopathy -- Secondary to post anesthetic -- Avoid sedatives -- Cont frequent reorientation -- ABG reassuring RESP: # Acute hypoxemia respiratory failure -- Secondary to atelectasis from post op -- HOB elevation -- Aspiration precaution -- Encourage IS once mentation improve -- Goal SPO2 > 88% CVS: # A fib w/ RVR -- Start diltiazem gtt -- GOal HR < 110 -- Check TTE -- CHADVASC score 3-> need systemic AC once cleared by ortho surgery -- High lytes goal -- If develop hypotension while on diltiazem then will consider amiodarone gtt : -- Pending BMP -- High lytes goal ENDO: -- Goal BS < 180 Time Spent With Patient Time with patient: 30 to 49 minutes with 50% spent counseling/coordinating care
[2023-03-05 21:22] LABS: Add Manual Diff / Slide Review NO; Basophils Absolute Auto 0 /uL (0-100); Basophils Percent Auto 0.2 % (0-2); Eosinophils Absolute Auto 0 /uL (0-450); Eosinophils Percent Auto 0.1 % (2-4); Hematocrit 35.1 % (36-46); Hemoglobin 11.7 g/dL (12.0-16.0); Lymphocytes Absolute Auto 500 /uL (1100-4500); Lymphocytes Percent Auto 3.1 % (25-40); Mean Corpuscular HGB Conc 33.2 % (30-36); Mean Corpuscular Volume 93.3 fL (80-100); Monocytes Absolute Auto 1200 /uL (0-900); Monocytes Percent Auto 7.3 % (3-14); Neutrophils Absolute Auto 15100 /uL (1500-7000); Neutrophils Percent Auto 89.3 % (50-75); Platelet Count 206 X10^3/uL (150-400); Red Blood Cell Count 3.76 X10^6/uL (4.0-5.2); White Blood Cell Count 16.9 X10^3/uL (4.5-11.0)
[2023-03-05] MEDS: DILTIAZEM 125 MG/125 ML PIGGYBACK IV (21:29)
[2023-03-05 21:32] LABS: Lactate (Lactic Acid) 2.5 mmol/L (0.7-2.1)
[2023-03-05 21:33] LABS: Alanine Aminotransferase 18 IU/L (<35); Albumin 2.8 g/dL (3.5-5.0); Albumin Globulin Ratio 1.1 (1.0-2.8); Alkaline Phosphatase 67 U/L (38-126); Aspartate Aminotransferase 28 IU/L (14-36); BUN Creatinine Ratio 15.6 (6-22); Bilirubin Total 0.5 mg/dL (0.2-1.3); Blood Urea Nitrogen 10 mg/dL (7-17); Calcium 7.9 mg/dL (8.4-10.2); Carbon Dioxide 25 mmol/L (22-32); Chloride 100 mmol/L (98-107); Creatine Kinase 267 U/L (30-135); Estimated Glomerular Filt Rate > 60 mL/min (>60); Globulin 2.6 g/dL (1.7-4.1); Glucose 201 mg/dL (80-110); HEMOLYSIS < 15 (0-50); Potassium 3.6 mmol/L (3.4-5.1); Sodium 133 mmol/L (137-145); Total Protein 5.4 g/dL (6.3-8.2)
[2023-03-05 21:42] LABS: Magnesium 1.9 mg/dL (1.6-2.3)
[2023-03-05 21:44] LABS: Troponin I < 0.012 ng/mL (0.01-0.034)
[2023-03-05] MEDS: POTASSIUM CHLORIDE IN WATER 10 MEQ/100 ML PIGGYBACK 100 MEQ IV ×2 (22:00→23:04)
[2023-03-05 22:23] LABS: HCO3 ABG 23 mmol/L (23-27); Oxygen Saturation ABG 94 % (95-100); PO2 ABG 72 mmHg (80-100); TCO2 ABG 24 mmol/L (23-27); pH ABG 7.39 (7.35-7.45)
[2023-03-05 22:24] LABS: Fractionated Inspired Oxygen 38
[2023-03-05 22:54] LABS: Reflexed Lactate in 2 Hours Y
[2023-03-05 23:34] LABS: MRSA (Nasal) PCR Not Detected (Not Detect)
--- NOTE | 2023-03-05 23:34 | PC.NURSE ---
Addendum entered by Pricila Martinez R.N. 03/06/23 06:10: Patient converted to NSR at 2355, has remained in SR for rest of the night, diltiazem gtt titrated to 2.5mg/hr for several hours, then off at 0605, see Emar documentations. On 1L NC, sats >96%. Patient has been oriented x3, sipping on brendon dov, Tylenol and PO Zofran given. CMS intact, anterior left hip drsg D/I. Addendum entered by Pricila Martinez R.N. 03/05/23 23:46: Around 0, patient is more alert, requesting sugar and asking appropriate questions. Sipping on soda without nausea. HR continues 120s-150s, diltiazem titrated to 7.5mg/hr, will monitor. Original Note: Patient brought to ICU room 228 at [address] Bauman and Elaine RN. Patient is lethargic but opens and denies pain. A-fib RVR 150s, BP 144/74, RR 22, SpO2 >93% on 4L, LS CTA, afebrile. Amiodarone bolus infused, ABG and CXR done, labs drawn, spoke with Dr De Guzman who ordered Diltiazem gtt and K+ riders.
[2023-03-05 23:48] LABS: Lactate 2HR (Lactic Acid Rflx) 2.6 mmol/L (0.7-2.1)
[2023-03-06] VITALS (80 sets, daily range): BP systolic 95–135; BP diastolic 49–65; PULSE 61–92; RESP 17–40; TEMP 36.4–37.4; O2SAT 92–99
[2023-03-06] MEDS: LACTATED RINGERS 1,000 ML 100 ML IV (00:11)
[2023-03-06] MEDS: CEFAZOLIN 2 GM/100 ML PREMIX 100 ML IV ×2 (00:12→08:37)
[2023-03-06] MEDS: ONDANSETRON 4 MG ODT PO (04:22)
[2023-03-06] MEDS: ACETAMINOPHEN 325 MG TABLET 650 MG PO ×3 (04:22→22:55)
[2023-03-06 04:48] LABS: Hematocrit 32.3 % (36-46)
--- NOTE | 2023-03-06 06:45 | P.TELICUPN_ITS ---
Subjective Subjective IF CAMERA ACTIVATED, patient seen via real-time interactive audiovisual communication: Camera activated Consent obtained for tele-chemical educator care: Yes Patient Location: ICU Provider location (State): [place] Other participants/roles: rinku maharaj history: Narrative: Patient is a 82 year old female with who presents with a ground level fall. On admission she was found to have a fracture left femoral neck. She was found to be in A fib and procedure was aborted yesterday for further cardiac optimization. She was taken to OR today and underwent left hip arthroplasty. Postoperative patient went into A fib w/ RVR. Started on amiodarone bolus and HR remains in the 140s. Brought to ICU for further management. At the time of my assessment patient is waking up from anesthesia. HR is in the 140s and SBP ~140s. Started on diltiazem gtt. Current Medications Current Medications Medications: Home Medications No Known Home Medications 07/05/19 [History Confirmed 03/03/23] Visit Medications (administered) Generic Name Dose Route Start Last Admin Trade Name Freq PRN Reason Stop Dose Admin Acetaminophen 650 mg 03/03/23 14:22 03/06/23 04:22 Acetaminophen 325 Mg Tablet PO 650 mg Q6H PRN Administration Fever/Mild Pain (1-3) Aspirin 81 mg 03/05/23 21:00 03/05/23 21:46 Aspirin Ec 81 Mg Tablet PO Not Given BID MARK Docusate Sodium 100 mg 03/05/23 21:00 03/05/23 21:46 Docusate 100 Mg Capsule PO Not Given BID MARK Lactated Ringer's 1,000 mls @ 42 mls/hr 03/04/23 16:45 03/05/23 14:59 Lactated Ringers IV 42 mls/hr CONT MARK Administration Lactated Ringer's 1,000 mls @ 100 mls/hr 03/05/23 20:28 03/06/23 00:11 Lactated Ringers IV 100 mls/hr CONT MARK Administration Cefazolin Sodium/Dextrose 100 mls @ 200 mls/hr 03/05/23 23:30 03/06/23 01:04 Ancef IV 03/06/23 07:59 Infused Q8H MARK Infusion DILTIAZEM 125 mg in 125 mls @ 5 mls/hr 03/05/23 21:30 03/06/23 06:05 Diltiazem 125 Mg/125 Ml-D5w IV 0 mg/hr TITRATE MARK 0 mls/hr Titration Protocol 5 MG/HR Metoprolol Tartrate 12.5 mg 03/04/23 09:00 03/05/23 21:48 Metoprolol Ir 25 Mg Tablet PO Not Given BID MARK Metoprolol Tartrate 5 mg 03/04/23 09:11 03/05/23 19:48 Metoprolol Tartrate 5 Mg/5 Ml Inj IV 2.5 mg Q2HR PRN Administration Heart Rate- High Ondansetron HCl 4 mg 03/04/23 00:00 03/06/23 06:09 Ondansetron 4 Mg/2 Ml Inj IV Not Given Q6HR [facility] Ondansetron HCl 4 mg 03/05/23 20:28 03/06/23 04:22 Ondansetron 4 Mg Odt PO 4 mg Q4HR PRN Administration Nausea Prochlorperazine 5 mg 03/03/23 18:01 03/04/23 10:35 Prochlorperazine 10 Mg/2 Ml Vial IV 5 mg Q6HR PRN Administration Nausea Objective Labs 03/06/23 04:21 03/06/23 04:21 Labs: Laboratory Results - last 24 hr 03/05/23 03/05/23 03/05/23 20:17 21:10 21:12 WBC 16.9 H D RBC 3.76 L Hgb 11.7 L Hct 35.1 L MCV 93.3 MCH 31.0 MCHC 33.2 RDW 13.0 Plt Count 206 Neut % (Auto) 89.3 H Lymph % (Auto) 3.1 L [place] % (Auto) 7.3 Eos % (Auto) 0.1 L Baso % (Auto) 0.2 Neut # (Auto) 57525 H Lymph # (Auto) 500 L [place] # (Auto) 1200 H Eos # (Auto) 0 Baso # (Auto) 0 ABG pH 7.39 ABG pCO2 37.0 ABG pO2 72 L ABG HCO3 23 ABG Total CO2 24 ABG O2 Saturation 94 L ABG Base Excess -2.0 FiO2 38 Sodium 133 L Potassium 3.6 Chloride 100 Carbon Dioxide 25 BUN 10 Creatinine 0.64 Estimated GFR > 60 BUN/Creatinine Ratio 15.6 Glucose 201 H Lactate 2.5 H Calcium 7.9 L Magnesium 1.9 Total Bilirubin 0.5 AST 28 ALT 18 Alkaline Phosphatase 67 Total Creatine Kinase 267 H Troponin I < 0.012 Total Protein 5.4 L Albumin 2.8 L Globulin 2.6 Albumin/Globulin Ratio 1.1 Nasal Screen MRSA (PCR) Not detected 03/05/23 03/06/23 23:17 04:21 WBC RBC Hgb 11.0 L Hct 32.3 L MCV MCH MCHC RDW Plt Count Neut % (Auto) Lymph % (Auto) [place] % (Auto) Eos % (Auto) Baso % (Auto) Neut # (Auto) Lymph # (Auto) [place] # (Auto) Eos # (Auto) Baso # (Auto) ABG pH ABG pCO2 ABG pO2 ABG HCO3 ABG Total CO2 ABG O2 Saturation ABG Base Excess FiO2 Sodium Potassium Chloride Carbon Dioxide BUN Creatinine Estimated GFR BUN/Creatinine Ratio Glucose Lactate 2.6 H Calcium Magnesium Total Bilirubin AST ALT Alkaline Phosphatase Total Creatine Kinase Troponin I Total Protein Albumin Globulin Albumin/Globulin Ratio Nasal Screen MRSA (PCR) Exam Vital Signs (past 8 hours): - 03/05/23 22:46 03/05/23 22:46 03/05/23 23:00 Pulse Rate 146 H 146 H Respiratory Rate 26 H 22 Blood Pressure 115/76 149/100 H Pulse Oximetry 94 96 Oxygen Delivery Method Oxygen Flow Rate 4 03/05/23 23:00 03/05/23 23:00 03/05/23 23:15 Pulse Rate 146 H 151 H Respiratory Rate 22 22 Blood Pressure 149/100 H Pulse Oximetry 96 95 Oxygen Delivery Method Oxygen Flow Rate 03/05/23 23:30 03/05/23 23:31 03/05/23 23:31 Pulse Rate 153 H 150 H Respiratory Rate 25 H 22 Blood Pressure 97/74 Pulse Oximetry 97 97 Oxygen Delivery Method Oxygen Flow Rate 03/05/23 23:45 03/05/23 23:45 03/06/23 00:00 Pulse Rate 145 H Respiratory Rate 23 Blood Pressure 95/63 Pulse Oximetry 96 Oxygen Delivery Method Nasal Cannula Oxygen Flow Rate 03/06/23 00:00 03/06/23 00:00 03/06/23 00:00 Pulse Rate 72 82 Respiratory Rate 21 24 Blood Pressure 125/57 L 125/57 L Pulse Oximetry 96 97 Oxygen Delivery Method Oxygen Flow Rate 3 03/06/23 00:15 03/06/23 00:30 03/06/23 00:30 Pulse Rate 72 74 Respiratory Rate 22 21 Blood Pressure 120/59 L Pulse Oximetry 96 97 Oxygen Delivery Method Oxygen Flow Rate 03/06/23 00:45 03/06/23 01:00 03/06/23 01:00 Pulse Rate 67 72 Respiratory Rate 21 23 Blood Pressure 117/59 L 117/59 L Pulse Oximetry 98 98 Oxygen Delivery Method Oxygen Flow Rate 2 03/06/23 01:00 03/06/23 01:15 03/06/23 01:30 Pulse Rate 70 74 68 Respiratory Rate 22 21 22 Blood Pressure Pulse Oximetry 99 98 99 Oxygen Delivery Method Oxygen Flow Rate 03/06/23 01:45 03/06/23 02:00 03/06/23 02:00 Pulse Rate 68 62 Respiratory Rate 22 18 Blood Pressure 119/58 L 119/58 L Pulse Oximetry 99 98 Oxygen Delivery Method Oxygen Flow Rate 2 03/06/23 02:00 03/06/23 02:15 03/06/23 02:30 Pulse Rate 68 64 68 Respiratory Rate 22 22 21 Blood Pressure Pulse Oximetry 99 98 97 Oxygen Delivery Method Oxygen Flow Rate 03/06/23 02:45 03/06/23 03:00 03/06/23 03:00 Pulse Rate 65 63 71 Respiratory Rate 21 20 23 Blood Pressure 114/56 L Pulse Oximetry 98 98 98 Oxygen Delivery Method Oxygen Flow Rate 2 03/06/23 03:00 03/06/23 03:15 03/06/23 03:30 Pulse Rate 69 67 Respiratory Rate 21 21 Blood Pressure 114/56 L Pulse Oximetry 98 98 Oxygen Delivery Method Oxygen Flow Rate 03/06/23 03:45 03/06/23 04:00 03/06/23 04:00 Pulse Rate 69 72 Respiratory Rate 22 20 Blood Pressure 124/60 124/60 Pulse Oximetry 97 98 Oxygen Delivery Method Oxygen Flow Rate 2 03/06/23 04:00 03/06/23 04:15 03/06/23 04:30 Pulse Rate 76 75 Respiratory Rate 27 H 22 Blood Pressure Pulse Oximetry 98 98 Oxygen Delivery Method Nasal Cannula Oxygen Flow Rate 03/06/23 04:30 03/06/23 04:45 03/06/23 05:00 Pulse Rate 72 71 69 Respiratory Rate 25 H 25 H 24 Blood Pressure Pulse Oximetry 98 98 96 Oxygen Delivery Method Oxygen Flow Rate 03/06/23 05:00 03/06/23 05:15 03/06/23 06:00 Pulse Rate 63 61 Respiratory Rate 21 22 Blood Pressure 104/55 L 105/55 L Pulse Oximetry 97 97 Oxygen Delivery Method Oxygen Flow Rate 1 Oxygen Delivery Method Nasal Cannula Oxygen Flow Rate 1 Narrative Exam Narrative: comfortable and alert and awake , not in distress Assessment & Plan Assessment and plan (1) Fracture of femoral neck, closed: Qualifiers: Encounter type: initial encounter Laterality: left Qualified Code(s): S72.002A - Fracture of unspecified part of neck of left femur, initial encounter for closed fracture Status: Acute (2) Ganglion cyst of finger of right hand: Status: Acute (3) Finger pain, right: Status: Acute Assessment & Plan narrative: Assessment & Plan narrative: NEURO: # Acute encephalopathy -- Secondary to post anesthetic -- Avoid sedatives -- Cont frequent reorientation -- ABG stable much better now as per nurse RESP: # Acute hypoxemia respiratory failure -- Secondary to atelectasis from post op -- HOB elevation -- Aspiration precaution -- Encourage IS once mentation improve -- Goal SPO2 > 88% CVS: # A fib w/ RVR -- off diltiazem gtt at 6 am due to hypotension and will watch for now without po cardizem , if recurs start cardizem 60 mg er po bid -- GOal HR < 110 -- Check TTE -- CHADVASC score 3->on lovenox and aspirin 81 mg po for dvt prophylaxis for now , hold eliquis for atr fib as pt had a one time post op stress event -- High lytes goal -- If develop hypotension while on diltiazem then will consider amiodarone gtt : -- Pending BMP -- High lytes goal ENDO: -- Goal BS < 180 will watch for acute infection / beeding arrythhmias and ileus and delirium , keep urine output more than 30 cc per hr Time Spent With Patient Time with patient: 30 to 49 minutes with 50% spent counseling/coordinating care, the pt was managed for tele critical care using audio visual guidance , the pt is in [place], [place] and i am based in [facility], [facility] me address and manage all concerns Time Spent With Patient Time with patient: 30 to 49 minutes with 50% spent counseling/coordinating care
[2023-03-06 07:32] LABS: Alanine Aminotransferase 18 IU/L (<35); Albumin 2.5 g/dL (3.5-5.0); Albumin Globulin Ratio 1.1 (1.0-2.8); Alkaline Phosphatase 67 U/L (38-126); Aspartate Aminotransferase 31 IU/L (14-36); BUN Creatinine Ratio 17.2 (6-22); Bilirubin Total 0.3 mg/dL (0.2-1.3); Blood Urea Nitrogen 10 mg/dL (7-17); Calcium 8.2 mg/dL (8.4-10.2); Carbon Dioxide 27 mmol/L (22-32); Chloride 100 mmol/L (98-107); Estimated Glomerular Filt Rate > 60 mL/min (>60); Globulin 2.3 g/dL (1.7-4.1); Glucose 156 mg/dL (80-110); HEMOLYSIS < 15 (0-50); Potassium 4.4 mmol/L (3.4-5.1); Sodium 131 mmol/L (137-145); Total Protein 4.8 g/dL (6.3-8.2)
[2023-03-06] MEDS: ASPIRIN EC 81 MG TABLET PO ×2 (08:37→21:18)
[2023-03-06] MEDS: DOCUSATE 100 MG CAPSULE PO ×2 (08:37→21:18)
--- NOTE | 2023-03-06 08:58 | PM.PN.1 ---
Subjective Subjective Date Patient Seen: 03/06/23 Interval history: She is seen in her room today to follow-up her atrial fibrillation. Postoperatively she experienced AFib with rapid ventricular response. Her blood pressure is 99/49 on a diltiazem drip which was successful at converting her AFib to sinus rhythm. The 03/05 white blood count was 16.9 with a hemoglobin of 11.0 today. That is stable. Her albumin is low at 2.5. She is now postop day 1. Left hip surgery. She will be started on amiodarone and continued on low-dose metoprolol. She will need to see Cardiology as an outpatient. This has been difficult for her as she has been challenged at finding a new primary care physician who can make that referral. Exam Vital Signs (past 8 hours): - 03/06/23 01:00 03/06/23 01:00 03/06/23 01:00 Pulse Rate 72 70 Respiratory Rate 23 22 Blood Pressure 117/59 L 117/59 L Pulse Oximetry 98 99 Oxygen Delivery Method Oxygen Flow Rate 2 03/06/23 01:15 03/06/23 01:30 03/06/23 01:45 Pulse Rate 74 68 68 Respiratory Rate 21 22 22 Blood Pressure Pulse Oximetry 98 99 99 Oxygen Delivery Method Oxygen Flow Rate 03/06/23 02:00 03/06/23 02:00 03/06/23 02:00 Pulse Rate 62 68 Respiratory Rate 18 22 Blood Pressure 119/58 L 119/58 L Pulse Oximetry 98 99 Oxygen Delivery Method Oxygen Flow Rate 2 03/06/23 02:15 03/06/23 02:30 03/06/23 02:45 Pulse Rate 64 68 65 Respiratory Rate 22 21 21 Blood Pressure Pulse Oximetry 98 97 98 Oxygen Delivery Method Oxygen Flow Rate 03/06/23 03:00 03/06/23 03:00 03/06/23 03:00 Pulse Rate 63 71 Respiratory Rate 20 23 Blood Pressure 114/56 L 114/56 L Pulse Oximetry 98 98 Oxygen Delivery Method Oxygen Flow Rate 2 03/06/23 03:15 03/06/23 03:30 03/06/23 03:45 Pulse Rate 69 67 69 Respiratory Rate 21 21 22 Blood Pressure Pulse Oximetry 98 98 97 Oxygen Delivery Method Oxygen Flow Rate 03/06/23 04:00 03/06/23 04:00 03/06/23 04:00 Pulse Rate 72 76 Respiratory Rate 20 27 H Blood Pressure 124/60 124/60 Pulse Oximetry 98 98 Oxygen Delivery Method Oxygen Flow Rate 2 03/06/23 04:15 03/06/23 04:30 03/06/23 04:30 Pulse Rate 75 72 Respiratory Rate 22 25 H Blood Pressure Pulse Oximetry 98 98 Oxygen Delivery Method Nasal Cannula Oxygen Flow Rate 03/06/23 04:45 03/06/23 05:00 03/06/23 05:00 Pulse Rate 71 69 Respiratory Rate 25 H 24 Blood Pressure 104/55 L Pulse Oximetry 98 96 Oxygen Delivery Method Oxygen Flow Rate 03/06/23 05:15 03/06/23 05:30 03/06/23 05:45 Pulse Rate 63 64 64 Respiratory Rate 21 21 21 Blood Pressure Pulse Oximetry 97 97 97 Oxygen Delivery Method Oxygen Flow Rate 03/06/23 06:00 03/06/23 06:00 03/06/23 06:00 Pulse Rate 61 64 Respiratory Rate 22 21 Blood Pressure 105/55 L 105/55 L Pulse Oximetry 97 98 Oxygen Delivery Method Oxygen Flow Rate 1 03/06/23 06:15 03/06/23 06:30 03/06/23 06:45 Pulse Rate 63 62 62 Respiratory Rate 21 21 22 Blood Pressure Pulse Oximetry 97 97 97 Oxygen Delivery Method Oxygen Flow Rate 03/06/23 07:00 03/06/23 07:00 03/06/23 07:15 Pulse Rate 65 70 Respiratory Rate 23 25 H Blood Pressure 108/54 L Pulse Oximetry 97 96 Oxygen Delivery Method Oxygen Flow Rate 03/06/23 07:30 03/06/23 07:45 03/06/23 08:00 Pulse Rate 69 68 Respiratory Rate 24 22 Blood Pressure 99/49 L Pulse Oximetry 96 97 Oxygen Delivery Method Oxygen Flow Rate 03/06/23 08:00 03/06/23 08:15 03/06/23 08:30 Pulse Rate 66 63 81 Respiratory Rate 22 21 29 H Blood Pressure Pulse Oximetry 97 97 97 Oxygen Delivery Method Oxygen Flow Rate Oxygen Delivery Method Nasal Cannula Oxygen Flow Rate 1 Objective Labs 03/06/23 04:21 03/06/23 04:21 Labs: Laboratory Results - last 24 hr 03/05/23 03/05/23 03/05/23 20:17 21:10 21:12 WBC 16.9 H D RBC 3.76 L Hgb 11.7 L Hct 35.1 L MCV 93.3 MCH 31.0 MCHC 33.2 RDW 13.0 Plt Count 206 Neut % (Auto) 89.3 H Lymph % (Auto) 3.1 L [place] % (Auto) 7.3 Eos % (Auto) 0.1 L Baso % (Auto) 0.2 Neut # (Auto) 82839 H Lymph # (Auto) 500 L [place] # (Auto) 1200 H Eos # (Auto) 0 Baso # (Auto) 0 ABG pH 7.39 ABG pCO2 37.0 ABG pO2 72 L ABG HCO3 23 ABG Total CO2 24 ABG O2 Saturation 94 L ABG Base Excess -2.0 FiO2 38 Sodium 133 L Potassium 3.6 Chloride 100 Carbon Dioxide 25 BUN 10 Creatinine 0.64 Estimated GFR > 60 BUN/Creatinine Ratio 15.6 Glucose 201 H Lactate 2.5 H Calcium 7.9 L Magnesium 1.9 Total Bilirubin 0.5 AST 28 ALT 18 Alkaline Phosphatase 67 Total Creatine Kinase 267 H Troponin I < 0.012 Total Protein 5.4 L Albumin 2.8 L Globulin 2.6 Albumin/Globulin Ratio 1.1 Nasal Screen MRSA (PCR) Not detected 03/05/23 03/06/23 23:17 04:21 WBC RBC Hgb 11.0 L Hct 32.3 L MCV MCH MCHC RDW Plt Count Neut % (Auto) Lymph % (Auto) [place] % (Auto) Eos % (Auto) Baso % (Auto) Neut # (Auto) Lymph # (Auto) [place] # (Auto) Eos # (Auto) Baso # (Auto) ABG pH ABG pCO2 ABG pO2 ABG HCO3 ABG Total CO2 ABG O2 Saturation ABG Base Excess FiO2 Sodium 131 L Potassium 4.4 Chloride 100 Carbon Dioxide 27 BUN 10 Creatinine 0.58 Estimated GFR > 60 BUN/Creatinine Ratio 17.2 Glucose 156 H Lactate 2.6 H Calcium 8.2 L Magnesium Total Bilirubin 0.3 AST 31 ALT 18 Alkaline Phosphatase 67 Total Creatine Kinase Troponin I Total Protein 4.8 L Albumin 2.5 L Globulin 2.3 Albumin/Globulin Ratio 1.1 Nasal Screen MRSA (PCR) [facility] Medical History Ganglion cyst of finger of right hand Surgical History History of cataract removal with insertion of prosthetic lens Social History household members: significant other Smoking Status: Former smoker alcohol intake: never Assessment & Plan Assessment & Plan narrative: 1. Acute left femoral neck fracture, POA. -ortho repair on 03/05 -IV pain medication 2. PAF with RVR, POA. -PO metoprolol and IV metoprolol PRN. -Recurrence of AFib with RVR postop treated with amiodarone, IV diltiazem. -plan oral amiodarone and low-dose metoprolol due relatively low blood pressures at baseline. -recommend outpatient Cardiology evaluation. -assess for anticoagulation prior to discharge. 3. Acute hypoxic respiratory failure, present on admission and resolved. Monitor clinically. CODE: Full Proxy: Gretta Shukla, family
[2023-03-06 09:21] LABS: PCO2 ABG 37.9 mmHg (35-45)
[2023-03-06] MEDS: ENOXAPARIN 40 MG/0.4 ML SYRINGE SUBCUT (09:38)
[2023-03-06] MEDS: METOPROLOL IR 25 MG TABLET 12.5 MG PO ×2 (09:38→21:18)
--- NOTE | 2023-03-06 11:01 | PM.PNPO.1 ---
Subjective Subjective Date Patient Seen: 03/06/23 Time Patient Seen: 11:01 Interval history: Pt sitting up in bed surrounded by multiple friends/family and providers. She is feeling well. Getting ready to work w/ PT. Exam Vital Signs (past 8 hours): - 03/06/23 03:15 03/06/23 03:30 03/06/23 03:45 Temperature Pulse Rate 69 67 69 Respiratory Rate 21 21 22 Blood Pressure Pulse Oximetry 98 98 97 Oxygen Delivery Method Oxygen Flow Rate 03/06/23 04:00 03/06/23 04:00 03/06/23 04:00 Temperature Pulse Rate 72 76 Respiratory Rate 20 27 H Blood Pressure 124/60 124/60 Pulse Oximetry 98 98 Oxygen Delivery Method Oxygen Flow Rate 2 03/06/23 04:15 03/06/23 04:30 03/06/23 04:30 Temperature Pulse Rate 75 72 Respiratory Rate 22 25 H Blood Pressure Pulse Oximetry 98 98 Oxygen Delivery Method Nasal Cannula Oxygen Flow Rate 03/06/23 04:45 03/06/23 05:00 03/06/23 05:00 Temperature Pulse Rate 71 69 Respiratory Rate 25 H 24 Blood Pressure 104/55 L Pulse Oximetry 98 96 Oxygen Delivery Method Oxygen Flow Rate 03/06/23 05:15 03/06/23 05:30 03/06/23 05:45 Temperature Pulse Rate 63 64 64 Respiratory Rate 21 21 21 Blood Pressure Pulse Oximetry 97 97 97 Oxygen Delivery Method Oxygen Flow Rate 03/06/23 06:00 03/06/23 06:00 03/06/23 06:00 Temperature Pulse Rate 61 64 Respiratory Rate 22 21 Blood Pressure 105/55 L 105/55 L Pulse Oximetry 97 98 Oxygen Delivery Method Oxygen Flow Rate 1 03/06/23 06:15 03/06/23 06:30 03/06/23 06:45 Temperature Pulse Rate 63 62 62 Respiratory Rate 21 21 22 Blood Pressure Pulse Oximetry 97 97 97 Oxygen Delivery Method Oxygen Flow Rate 03/06/23 07:00 03/06/23 07:00 03/06/23 07:15 Temperature Pulse Rate 65 70 Respiratory Rate 23 25 H Blood Pressure 108/54 L Pulse Oximetry 97 96 Oxygen Delivery Method Oxygen Flow Rate 03/06/23 07:30 03/06/23 07:45 03/06/23 08:00 Temperature Pulse Rate 69 68 Respiratory Rate 24 22 Blood Pressure 99/49 L Pulse Oximetry 96 97 Oxygen Delivery Method Oxygen Flow Rate 03/06/23 08:00 03/06/23 08:00 03/06/23 08:15 Temperature Pulse Rate 66 63 Respiratory Rate 22 21 Blood Pressure Pulse Oximetry 97 97 Oxygen Delivery Method Room Air Oxygen Flow Rate 03/06/23 08:30 03/06/23 08:45 03/06/23 09:00 Temperature Pulse Rate 81 77 Respiratory Rate 29 H 28 H Blood Pressure 104/51 L Pulse Oximetry 97 92 Oxygen Delivery Method Oxygen Flow Rate 03/06/23 09:00 03/06/23 09:15 03/06/23 09:30 Temperature Pulse Rate 79 78 82 Respiratory Rate 27 H 28 H 32 H Blood Pressure Pulse Oximetry 95 92 93 Oxygen Delivery Method Oxygen Flow Rate 03/06/23 09:44 03/06/23 09:44 03/06/23 09:45 Temperature Pulse Rate 78 77 Respiratory Rate 25 H 29 H Blood Pressure 108/57 L Pulse Oximetry 96 97 Oxygen Delivery Method Oxygen Flow Rate 03/06/23 10:00 03/06/23 10:00 03/06/23 10:00 Temperature 98.1 F Pulse Rate 80 Respiratory Rate 33 H Blood Pressure 105/53 L Pulse Oximetry 96 Oxygen Delivery Method Oxygen Flow Rate 03/06/23 10:33 Temperature Pulse Rate Respiratory Rate Blood Pressure Pulse Oximetry 97 Oxygen Delivery Method Room Air Oxygen Flow Rate Oxygen Delivery Method Room Air Oxygen Flow Rate 1 Narrative Exam Narrative: 5/5 strength in hip flexors, quadriceps, hamstrings, DF, PF, EHL on left. Sensation to touch intact throughout LLE. Calf soft, compressible, nontender. Aquacel dressing CDI. Objective Labs 03/06/23 04:21 03/06/23 04:21 Labs: Laboratory Results - last 24 hr 03/05/23 03/05/23 03/05/23 20:17 21:10 21:12 WBC 16.9 H D RBC 3.76 L Hgb 11.7 L Hct 35.1 L MCV 93.3 MCH 31.0 MCHC 33.2 RDW 13.0 Plt Count 206 Neut % (Auto) 89.3 H Lymph % (Auto) 3.1 L [place] % (Auto) 7.3 Eos % (Auto) 0.1 L Baso % (Auto) 0.2 Neut # (Auto) 19697 H Lymph # (Auto) 500 L [place] # (Auto) 1200 H Eos # (Auto) 0 Baso # (Auto) 0 ABG pH 7.39 ABG pCO2 37.9 ABG pO2 72 L ABG HCO3 23 ABG Total CO2 24 ABG O2 Saturation 94 L ABG Base Excess -2.0 FiO2 38 Sodium 133 L Potassium 3.6 Chloride 100 Carbon Dioxide 25 BUN 10 Creatinine 0.64 Estimated GFR > 60 BUN/Creatinine Ratio 15.6 Glucose 201 H Lactate 2.5 H Calcium 7.9 L Magnesium 1.9 Total Bilirubin 0.5 AST 28 ALT 18 Alkaline Phosphatase 67 Total Creatine Kinase 267 H Troponin I < 0.012 Total Protein 5.4 L Albumin 2.8 L Globulin 2.6 Albumin/Globulin Ratio 1.1 Nasal Screen MRSA (PCR) Not detected 03/05/23 03/06/23 23:17 04:21 WBC RBC Hgb 11.0 L Hct 32.3 L MCV MCH MCHC RDW Plt Count Neut % (Auto) Lymph % (Auto) [place] % (Auto) Eos % (Auto) Baso % (Auto) Neut # (Auto) Lymph # (Auto) [place] # (Auto) Eos # (Auto) Baso # (Auto) ABG pH ABG pCO2 ABG pO2 ABG HCO3 ABG Total CO2 ABG O2 Saturation ABG Base Excess FiO2 Sodium 131 L Potassium 4.4 Chloride 100 Carbon Dioxide 27 BUN 10 Creatinine 0.58 Estimated GFR > 60 BUN/Creatinine Ratio 17.2 Glucose 156 H Lactate 2.6 H Calcium 8.2 L Magnesium Total Bilirubin 0.3 AST 31 ALT 18 Alkaline Phosphatase 67 Total Creatine Kinase Troponin I Total Protein 4.8 L Albumin 2.5 L Globulin 2.3 Albumin/Globulin Ratio 1.1 Nasal Screen MRSA (PCR) [facility] Medical History Ganglion cyst of finger of right hand Surgical History History of cataract removal with insertion of prosthetic lens Social History household members: significant other Smoking Status: Former smoker alcohol intake: never Assessment & Plan Post-op Assessment and plan (1) S/P total hip arthroplasty: Assessment and Plan narrative: WBAT to left leg. Currently on Lovenox and ASA for VTE prophylaxis. PT while inpt. F/u in ortho clinic in 2 weeks for wound check; f/u w/ Dr Hughest in 6 weeks for repeat imaging. Postoperative Procedures: Procedures Operation Date: 03/05/23 14:30 Actual Procedure Side Surgeon p Total Hip Arthroplasty Left Juve Duran MD Postoperative day: 1
--- NOTE | 2023-03-06 11:50 | PT.IIE ---
Current Diagnoses Ganglion, right hand (03/03/23) Pain in right finger(s) (03/03/23) Fracture of unspecified part of neck of left femur, initial encounter for closed fracture (03/03/23) Presence of unspecified artificial hip joint (03/03/23) Surgery Performed Operation Date: 03/05/23 14:30 Actual Procedures p Total Hip Arthroplasty(Left) - Juve Duran MD Surgical History (Last Reviewed 03/03/23 @ 20:25 by Saravanan Rojas MD) History of cataract removal with insertion of prosthetic lens Medical History (Last Reviewed 03/03/23 @ 20:25 by Saravanan Rojas MD) Ganglion cyst of finger of right hand Physical Therapy Inpatient Evaluation/Re-Eval M1 PT/OT-IP Prior Functional Status Start: 03/06/23 10:08 Freq: NEEDED Status: Active Protocol: Document 03/06/23 10:50 MB (Rec: 03/06/23 11:49 MB [id number]) Medical Review Prior Functional Status Medical History Reviewed Yes Diet/Fluid Consistency Regular Communication WNLs Mobility and Gait I, did not use AD but had trouble with her balance and strength d/t right knee arthritis Activities of Daily Living and IADL's I Prior Functional Level (Other details) I Social History Household Members significant other Living Arrangements House Number of Floors (Floors) One Floor Number of Stairs To Enter/Railing? Threshold and no step to enter Home Environment Standard Height Toilet,Tub/ Shower Home Equipment Front Wheel Walker,Bedside Commode,Tub Transfer Bench Employment Status Retired M2 PT-IP Current Condition Start: 03/06/23 10:08 Freq: NEEDED Status: Active Protocol: Document 03/06/23 10:50 MB (Rec: 03/06/23 11:49 MB [id number]) Physical Therapy Current Condition Current Condition Evaluation Date 03/06/23 M3 PT-IP Subjective Start: 03/06/23 10:08 Freq: NEEDED Status: Active Protocol: Document 03/06/23 10:50 MB (Rec: 03/06/23 11:49 MB [id number]) Subjective Physical Therapy Visit Type Type Initial Evaluation Visit Start Time 10:50 Visit Stop Time 11:35 Total Visit Minutes 45 Number of PRESS MAINTAINER Visits 0 Physical Therapy Visit Comments Patient Comments I think I need to go some place for rehab before I go home until I can take care of myself. Therapy Pain Assessment Pain When Pain Assessed At Rest Pain Present Pain Present Pain Reported Location Right knee and leg Intensity 2 Scale Used Paz (Faces) Description Chronic Pain Management Techniques Distraction,Re-positioning Left Hip Intensity 2 Scale Used Paz (Faces) Pain Management Techniques Distraction,Re-positioning M4 PT-IP Mobility and Gait Start: 03/06/23 10:08 Freq: NEEDED Status: Active Protocol: Document 03/06/23 10:50 MB (Rec: 03/06/23 11:49 MB [id number]) PT-Bed Mobility Assessment Supine to Sit Supine to Sit Maximum Assistance,1 Person Assistance,Head of Bed Elevated,Bedrails Scooting Scooting to Edge of Bed Minimal Assistance PT-Transfer Assessment Sit to and From Stand Sit to and from Stand Moderate Assistance,1 Person Assistance,Use of Upper Extremities Equipment Transfer Assistive Device Gait Belt,Front Wheeled Walker Orthotic/Prosthetic Devices or Brace: No Comments Mobility Comments PT provides most assistance in moving legs to the EOB to the left and pt reports that her chronic right knee pain is bothersome Gait Assessment Gait Gait Assistance Required: Minimum Assistance,1 Person Assist Distance (Feet) 2 Able to Maintain Weight Bearing Status Yes During Gait Assistive Devices Assistive Device Gait Belt,Front Wheeled Walker Orthotic/Prosthetic Devices or Brace: No Gait Deviations General Gait Pattern Antalgic,Decreased Stride Length,Decreased Feet Clearance,Flexed Trunk,Step-to Gait,Wide Based Gait Factors Limiting Gait Function Factors Limiting Gait Function Decreased Activity Tolerance, Decreased Strength,Limited Range of Motion,Pain,Poor Balance,Poor Safety Awareness Comments Gait Comments Pt states that she cannot fully extend her right knee d/ t arthritic changes and she does present with mild buckle with stepping that is managed with step-to pattern and PT assist with RW PT-Balance Assessment Sitting Balance and Reactions Static Sitting Balance Ability Fair Dynamic Sitting Balance Ability Fair Standing Balance and Reactions Static Standing Balance Ability Fair Dynamic Standing Balance Ability Poor Device Used RW M5 PT-IP Objective Assessments Start: 03/06/23 10:08 Freq: NEEDED Status: Active Protocol: Document 03/06/23 10:50 MB (Rec: 03/06/23 11:49 MB [id number]) Orientation Orientation/Cognition Level of Alertness Alert Orientation Name,Age,Birthday,Month,Date, Year,Day of Week,Place, Situation Language Function Ability No Deficits Noted Safety Awareness Understands Safety Issues Memory Description No Deficits Noted Gross Range of Motion Upper Extremity ROM Impairments Defer to OT, appears functional Lower Extremity ROM Assessment Bilaterally Impaired Strength Lower Extremity Strength Assessment Bilaterally Impaired Hip Cannot tolerate MMT post-op on the left, pain on the right as well Knee Same as above Ankle Functional Comments Strength Comments Functional weakness in B hips and knees with STS and stepping today Sensation Assessment Sensation Gross Sensation Left LE Impaired Sensation Description Numbness Comments Sensation Comments Pt reports numbness L2-3 dermatome post-op LLE Muscle Tone Muscle Tone WNL Yes M6 PT-IP Treatment Start: 03/06/23 10:08 Freq: NEEDED Status: Active Protocol: Document 03/06/23 10:50 MB (Rec: 03/06/23 11:49 MB [id number]) Physical Therapy Treatment Exercises Exercises Ankle Pumps,Gluteal Sets,Quad Sets,Heel Slides,Short Arc Quads Education Education Provided Precautions,Weight Bearing Status,Post-Op Packet,Safety M7 PT-IP Assessment and Plan Start: 03/06/23 10:08 Freq: NEEDED Status: Active Protocol: Document 03/06/23 10:50 MB (Rec: 03/06/23 11:49 MB [id number]) PT Summary Assessment and Plan Potential Rehabilitation Potential Good Status of Condition at Evaluation Evolving Summary Impairments Pain,ROM,Strength,Balance,Bed Mobility,Transfers,Gait, Activity Tolerance Progress Towards Goals Progressing Toward Goals,Slow Progress due to Activity Tolerance Assessment Summary Pt is a pleasant 82 y/o female who reports I prior to fall on Wednesday when her dogs pulled on their double leash, pulling her over. She has decreased right knee strength and balance and chronic pain d /t arthritis and she did not use an AD PRESS MAINTAINER. Today, her HR is sporatic in setting of a- fib and she has no dizziness or symptoms with short mobility. She requires assistance for all mobility and is concerned about her roommate being able to care for her at home and she is interested in d/cing to SNF to improve her I before d/cing back to their home. PT is in agreement that pt will benefit from ongoing acute PT and SNF level of therapy at d/c to maximize I before d/cing back home with her roommate. PT will work on bed mobility, transfers, gait and balance. Goals Bed Mobility Goal Independent Transfer Goal Standby Assistance,Front Wheeled Walker Gait Goal Standby Assistance,Front Wheel Walker Gait Distance 100 Days to Meet Goals 5 Frequency of Treatment Frequency Of Treatment Twice a Day Treatment Plan Physical Therapy Treatment Plan Bed Mobility Training,Transfer Training,Gait Training, Therapeutic Exercise,Balance Retraining,Post Op Education, Discharge Planning,Hot or Cold Pack,Neuromuscular Re-ed Precautions Anterior Hip Precautions No Hip Extension,No Hip External Rotation Weight Bearing Status Weight Bearing Status Weight Bear as Tolerated Recommendations To Nursing Amount of Assist Needed 2 Person Assist Discharge Recommendations PT Discharge Recommendations SNF Rehab Transportation Needs at Discharge Wheelchair/Cabulance
[2023-03-06] MEDS: AMIODARONE 200 MG TABLET 100 MG PO (12:02)
--- NOTE | 2023-03-06 14:10 | PT.IPTN ---
Current Diagnoses Ganglion, right hand (03/03/23) Pain in right finger(s) (03/03/23) Fracture of unspecified part of neck of left femur, initial encounter for closed fracture (03/03/23) Presence of unspecified artificial hip joint (03/03/23) Surgery Performed Operation Date: 03/05/23 14:30 Actual Procedures p Total Hip Arthroplasty(Left) - Juve Duran MD Physical Therapy Treatment Note M2 PT-IP Current Condition Start: 03/06/23 10:08 Freq: NEEDED Status: Active Protocol: Document 03/06/23 10:50 MB (Rec: 03/06/23 11:49 MB [id number]) Physical Therapy Current Condition Current Condition Evaluation Date 03/06/23 M3 PT-IP Subjective Start: 03/06/23 10:08 Freq: NEEDED Status: Active Protocol: Document 03/06/23 14:37 TS (Rec: 03/06/23 14:55 TS [id number]) Subjective Physical Therapy Visit Type Type Treatment Note Visit Start Time 14:10 Visit Stop Time 14:35 Total Visit Minutes 25 Number of GERIATRICIAN Visits 1 Physical Therapy Visit Comments Patient Comments Pt found resting in chair, would like to get back to bed, pt agreeable to PT. Therapy Pain Assessment Pain When Pain Assessed At Rest Pain Present Pain Present Pain Reported M4 PT-IP Mobility and Gait Start: 03/06/23 10:08 Freq: NEEDED Status: Active Protocol: Document 03/06/23 14:37 TS (Rec: 03/06/23 14:55 TS [id number]) PT-Bed Mobility Assessment Sit to Supine Sit to Supine Minimal Assistance,1 Person Assistance Scooting Scooting Up and Down in Bed Standby Assistance PT-Transfer Assessment Sit to and From Stand Sit to and from Stand Moderate Assistance,1 Person Assistance,Use of Upper Extremities Equipment Transfer Assistive Device Gait Belt,Front Wheeled Walker Orthotic/Prosthetic Devices or Brace: No Comments Mobility Comments Sit to stand from chair ModA with FWW, cues were provided for BUE support pushing from arms of chair and weight forward, pt is slow to stand with some buckling on RLE. She ambulated in room ~15'CGA with FWW and slow step to gait . Pt requested to sit EOB, cued for handrail assist for slow control onto bed. Sit to supine Christopher for LEs into bed, pt laterally scooted to reposition into bed. Pt was left in bed with all needs met , RN notified. Gait Assessment Gait Gait Assistance Required: Contact Guard Assist,1 Person Assist Distance (Feet) 15 Able to Maintain Weight Bearing Status Yes During Gait Assistive Devices Assistive Device Gait Belt,Front Wheeled Walker Orthotic/Prosthetic Devices or Brace: No Gait Deviations General Gait Pattern Antalgic,Decreased Stride Length,Decreased Feet Clearance,Flexed Trunk,Step-to Gait,Wide Based Gait Factors Limiting Gait Function Factors Limiting Gait Function Decreased Activity Tolerance, Decreased Strength,Limited Range of Motion,Pain,Poor Balance,Poor Safety Awareness Comments Gait Comments See mobility comments PT-Balance Assessment Sitting Balance and Reactions Static Sitting Balance Ability Fair Dynamic Sitting Balance Ability Fair Standing Balance and Reactions Static Standing Balance Ability Fair Dynamic Standing Balance Ability Poor Device Used FWW M5 PT-IP Objective Assessments Start: 03/06/23 10:08 Freq: NEEDED Status: Active Protocol: Document 03/06/23 10:50 MB (Rec: 03/06/23 11:49 MB [id number]) Orientation Orientation/Cognition Level of Alertness Alert Orientation Name,Age,Birthday,Month,Date, Year,Day of Week,Place, Situation Language Function Ability No Deficits Noted Safety Awareness Understands Safety Issues Memory Description No Deficits Noted Gross Range of Motion Upper Extremity ROM Impairments Defer to OT, appears functional Lower Extremity ROM Assessment Bilaterally Impaired Strength Lower Extremity Strength Assessment Bilaterally Impaired Hip Cannot tolerate MMT post-op on the left, pain on the right as well Knee Same as above Ankle Functional Comments Strength Comments Functional weakness in B hips and knees with STS and stepping today Sensation Assessment Sensation Gross Sensation Left LE Impaired Sensation Description Numbness Comments Sensation Comments Pt reports numbness L2-3 dermatome post-op LLE Muscle Tone Muscle Tone WNL Yes M6 PT-IP Treatment Start: 03/06/23 10:08 Freq: NEEDED Status: Active Protocol: Document 03/06/23 14:37 TS (Rec: 03/06/23 14:55 TS [id number]) Physical Therapy Treatment Exercises Exercises Ankle Pumps,Gluteal Sets,Quad Sets,Heel Slides,Short Arc Quads Education Education Provided Precautions,Weight Bearing Status,Post-Op Packet,Safety Other Treatments Other Treatment Performed Educated pt on intensity and frequency of bed ex. M7 PT-IP Assessment and Plan Start: 03/06/23 10:08 Freq: NEEDED Status: Active Protocol: Document 03/06/23 14:37 TS (Rec: 03/06/23 14:55 TS [id number]) PT Summary Assessment and Plan Potential Rehabilitation Potential Good Summary Impairments Pain,ROM,Strength,Balance,Bed Mobility,Transfers,Gait, Activity Tolerance Progress Towards Goals Slow Progress due to Pain,Slow Progress due to Activity Tolerance Assessment Summary Miracle is making some progress with her mobility but continues to be limited by pain and poor activity tolerance. She is ModA for sit to stand from chair, she demonstrates good carryover of sit to stand sequencing. She progressed her gait to ~15'CGA with slow step to gait and FWW. She has some slight buckling on RLE with initiating gait. PT continues to recommend SNF at this time. pt does not have support at home and would benefit from assist and ongoing PT. Goals Bed Mobility Goal Independent Transfer Goal Standby Assistance,Front Wheeled Walker Gait Goal Standby Assistance,Front Wheel Walker Gait Distance 100 Days to Meet Goals 5 Frequency of Treatment Frequency Of Treatment Twice a Day Treatment Plan Physical Therapy Treatment Plan Bed Mobility Training,Transfer Training,Gait Training, Therapeutic Exercise,Balance Retraining,Post Op Education, Discharge Planning,Hot or Cold Pack,Neuromuscular Re-ed Precautions Anterior Hip Precautions No Hip Extension,No Hip External Rotation Weight Bearing Status Weight Bearing Status Weight Bear as Tolerated Recommendations To Nursing Amount of Assist Needed 2 Person Assist Discharge Recommendations PT Discharge Recommendations SNF Rehab Transportation Needs at Discharge Wheelchair/Cabulance
--- NOTE | 2023-03-06 14:19 | CM.DPC ---
DCP Cont. Reviewed EMR and team rounds for updates. Pt worked w/PT today for initial eval, PT is recommending SNF rehab due to no home cg, safety concerns w/going back home, and need for further work with therapies. Placed referral to [facility], they are reviewing and assessing the need for an auth. Cont. to monitor. Anticipate 1-2 more days inpt.
--- NOTE | 2023-03-06 18:08 | PC.NURSE ---
1700 - Bowers catheter removed, patient tolerated well.
--- NOTE | 2023-03-06 20:35 | PM.ICURNDS ---
- :: This patient was seen via real time interactive two-way audiovisual telecommunication. Note: Discussed with the nurse the clinical status of the pt over the phone as the Cart was offline, pt HD stable, HR in 80s, no complain.
[2023-03-07] VITALS (75 sets, daily range): BP systolic 112–145; BP diastolic 52–72; PULSE 63–148; RESP 16–43; TEMP 36.9–37.3; O2SAT 92–94
--- NOTE | 2023-03-07 03:06 | P.TELICUPN_ITS ---
Subjective Subjective Consent obtained for tele-senior compliance analyst care: Yes Patient Location: ICU Interval history: The encounter was completed by 2-way audio visual interaction. Briefly, a 82 year old female, presented with a fracture of left femoral neck after a ground level fall, evaluated by orthopedics, taken to OR for surgery, developed Atrial Fibrillation with RVR, started on amiodarone bolus, brought to ICU for further management. In ICU, started on Diltiazem drip and successfully converted to SR, now on PO amiodarone and PO metoprolol, remains hemodynamically stable. Current Medications Current Medications Medications: Home Medications No Known Home Medications 07/05/19 [History Confirmed 03/03/23] Visit Medications (administered) Generic Name Dose Route Start Last Admin Trade Name Freq PRN Reason Stop Dose Admin Acetaminophen 650 mg 03/03/23 14:22 03/06/23 22:55 Acetaminophen 325 Mg Tablet PO 650 mg Q6H PRN Administration Fever/Mild Pain (1-3) Amiodarone HCl 100 mg 03/06/23 11:15 03/06/23 12:02 Amiodarone 200 Mg Tablet PO 100 mg DAILY MARK Administration Aspirin 81 mg 03/05/23 21:00 03/06/23 21:18 Aspirin Ec 81 Mg Tablet PO 81 mg BID MARK Administration Docusate Sodium 100 mg 03/05/23 21:00 03/06/23 21:18 Docusate 100 Mg Capsule PO 100 mg BID MARK Administration Enoxaparin Sodium 40 mg 03/06/23 09:00 03/06/23 09:38 Enoxaparin 40 Mg/0.4 Ml Syringe SUBCUT 40 mg DAILY MARK Administration Lactated Ringer's 1,000 mls @ 100 mls/hr 03/05/23 20:28 03/06/23 13:38 Lactated Ringers IV Infused CONT MARK Infusion Metoprolol Tartrate 12.5 mg 03/04/23 09:00 03/06/23 21:18 Metoprolol Ir 25 Mg Tablet PO 12.5 mg BID MARK Administration Metoprolol Tartrate 5 mg 03/04/23 09:11 03/05/23 19:48 Metoprolol Tartrate 5 Mg/5 Ml Inj IV 2.5 mg Q2HR PRN Administration Heart Rate- High Ondansetron HCl 4 mg 03/05/23 20:28 03/06/23 04:22 Ondansetron 4 Mg Odt PO 4 mg Q4HR PRN Administration Nausea Prochlorperazine 5 mg 03/03/23 18:01 03/04/23 10:35 Prochlorperazine 10 Mg/2 Ml Vial IV 5 mg Q6HR PRN Administration Nausea Objective Labs 03/06/23 04:21 03/06/23 04:21 Labs: Laboratory Results - last 24 hr 03/05/23 03/06/23 20:17 04:21 Hgb 11.0 L Hct 32.3 L ABG pCO2 37.9 Sodium 131 L Potassium 4.4 Chloride 100 Carbon Dioxide 27 BUN 10 Creatinine 0.58 Estimated GFR > 60 BUN/Creatinine Ratio 17.2 Glucose 156 H Calcium 8.2 L Total Bilirubin 0.3 AST 31 ALT 18 Alkaline Phosphatase 67 Total Protein 4.8 L Albumin 2.5 L Globulin 2.3 Albumin/Globulin Ratio 1.1 Exam Vital Signs (past 8 hours): - 03/06/23 20:00 03/06/23 20:00 03/06/23 20:00 Temperature 99.4 F Pulse Rate 84 Respiratory Rate 30 H Blood Pressure 107/55 L Pulse Oximetry 95 Oxygen Delivery Method Room Air 03/06/23 20:29 03/06/23 21:00 03/06/23 21:00 Temperature Pulse Rate 87 92 H Respiratory Rate 29 H 25 H Blood Pressure 95/60 Pulse Oximetry Oxygen Delivery Method 03/06/23 21:18 03/06/23 21:18 03/06/23 22:00 Temperature Pulse Rate 88 Respiratory Rate 26 H Blood Pressure 135/61 133/60 Pulse Oximetry Oxygen Delivery Method 03/06/23 22:00 03/06/23 22:25 03/06/23 23:00 Temperature Pulse Rate 85 85 Respiratory Rate 40 H 28 H Blood Pressure 131/62 Pulse Oximetry Oxygen Delivery Method 03/06/23 23:00 03/07/23 00:00 03/07/23 00:00 Temperature 98.6 F Pulse Rate 89 Respiratory Rate 30 H Blood Pressure 124/59 L Pulse Oximetry Oxygen Delivery Method Room Air 03/07/23 00:00 03/07/23 00:08 03/07/23 00:59 Temperature Pulse Rate 76 74 80 Respiratory Rate 29 H 28 H 32 H Blood Pressure Pulse Oximetry 93 93 Oxygen Delivery Method 03/07/23 01:00 03/07/23 01:00 03/07/23 02:00 Temperature Pulse Rate 79 Respiratory Rate 32 H Blood Pressure 124/60 120/58 L Pulse Oximetry Oxygen Delivery Method 03/07/23 02:00 03/07/23 02:11 03/07/23 03:00 Temperature Pulse Rate 75 74 75 Respiratory Rate 27 H 28 H 31 H Blood Pressure Pulse Oximetry Oxygen Delivery Method 03/07/23 03:00 03/07/23 03:01 Temperature Pulse Rate 74 Respiratory Rate 31 H Blood Pressure 120/58 L Pulse Oximetry Oxygen Delivery Method Oxygen Delivery Method Room Air Oxygen Flow Rate 1 Assessment & Plan Assessment & Plan narrative: # Acute hypoxic Respiratory failure: - Secondary to atelectasis from post op - C/w HOB elevation, Aspiration precaution - Encourage IS once mentation improve - Goal SPO2 > 88% # Atrial Fibrillation with RVR - Off diltiazem gtt. Goal HR < 110 - Check TTE - CHADVASC score 3->on lovenox and aspirin 81 mg po for dvt prophylaxis for now, hold eliquis for atrial fibrillation as pt had a one time post op stress event - Replace electrolytes, goal to keep K >4.0 and Mg > 2.0 # Femoral Neck Fracture: - S/p Surgical Repair on 03/06. # Acute encephalopathy - Now improved. - Secondary to post anesthetic - Avoid sedatives to prevent delirium - Cont frequent reorientation ICU core bundle: # FEN: Cardiac Diet. Aggressively replace Mg, K and Phos. # Glucose: Fairly controlled. BG goal 140-180 # Prophylaxis: Lovenox subcu and SCDs for DVT prophylaxis, No indication for stress ulcer prophylaxis # Lines/tubes: PIV, Bowers # CODE STATUS: Full code # Disposition: Remains in ICU. ? Discussed the plan of care with bedside RN, and ICU charge nurse.
[2023-03-07] MEDS: ACETAMINOPHEN 325 MG TABLET 650 MG PO ×3 (04:09→22:24)
--- NOTE | 2023-03-07 06:44 | P.TELICUPN_ITS ---
Subjective Subjective IF CAMERA ACTIVATED, patient seen via real-time interactive audiovisual communication: Camera activated Consent obtained for tele-personnel and payroll technician care: Yes Patient Location: ICU Provider location (State): [place] Other participants/roles: carol ann Quezada history: Narrative: on admission Patient is a 82 year old female with who presents with a ground level fall. On admission she was found to have a fracture left femoral neck. She was found to be in A fib and procedure was aborted yesterday for further cardiac optimization. She was taken to OR today and underwent left hip arthroplasty. Postoperative patient went into A fib w/ RVR. Started on amiodarone bolus and HR remains in the 140s. Brought to ICU for further management. At the time of my assessment patient is waking up from anesthesia. HR is in the 140s and SBP ~140s. Started on diltiazem gtt. on 03/07 pt alert awake and not in atr fib any more fore more than 24 hrs , not on any anti arrhythmics. as per nurse pt is ready for floor and is on amiadarone 100 mg daily , not on eliquis or xarelto as its a one time atr fib with post op surgical stress response, ok to cont Physical therapy and dc to floor later today, uneventful post op . nursing home anticoag as per ortho recommendations , will sign off presently as pt transitioning to floor, thx for consult , plse call us with any questions you may have any time Current Medications Current Medications Medications: Home Medications No Known Home Medications 07/05/19 [History Confirmed 03/03/23] Visit Medications (administered) Generic Name Dose Route Start Last Admin Trade Name Sher PRN Reason Stop Dose Admin Acetaminophen 650 mg 03/03/23 14:22 03/07/23 04:09 Acetaminophen 325 Mg Tablet PO 650 mg Q6H PRN Administration Fever/Mild Pain (1-3) Amiodarone HCl 100 mg 03/06/23 11:15 03/06/23 12:02 Amiodarone 200 Mg Tablet PO 100 mg DAILY MARK Administration Aspirin 81 mg 03/05/23 21:00 03/06/23 21:18 Aspirin Ec 81 Mg Tablet PO 81 mg BID MARK Administration Docusate Sodium 100 mg 03/05/23 21:00 03/06/23 21:18 Docusate 100 Mg Capsule PO 100 mg BID MARK Administration Enoxaparin Sodium 40 mg 10/21/23 09:00 03/06/23 09:38 Enoxaparin 40 Mg/0.4 Ml Syringe SUBCUT 40 mg DAILY MARK Administration Lactated Ringer's 1,000 mls @ 100 mls/hr 03/05/23 20:28 03/06/23 13:38 Lactated Ringers IV Infused CONT MARK Infusion Metoprolol Tartrate 12.5 mg 03/04/23 09:00 03/06/23 21:18 Metoprolol Ir 25 Mg Tablet PO 12.5 mg BID MARK Administration Metoprolol Tartrate 5 mg 03/04/23 09:11 03/05/23 19:48 Metoprolol Tartrate 5 Mg/5 Ml Inj IV 2.5 mg Q2HR PRN Administration Heart Rate- High Ondansetron HCl 4 mg 03/05/23 20:28 03/06/23 04:22 Ondansetron 4 Mg Odt PO 4 mg Q4HR PRN Administration Nausea Prochlorperazine 5 mg 03/03/23 18:01 03/04/23 10:35 Prochlorperazine 10 Mg/2 Ml Vial IV 5 mg Q6HR PRN Administration Nausea Objective Labs 03/06/23 04:21 03/06/23 04:21 Labs: Laboratory Results - last 24 hr 03/05/23 03/06/23 20:17 04:21 ABG pCO2 37.9 Sodium 131 L Potassium 4.4 Chloride 100 Carbon Dioxide 27 BUN 10 Creatinine 0.58 Estimated GFR > 60 BUN/Creatinine Ratio 17.2 Glucose 156 H Calcium 8.2 L Total Bilirubin 0.3 AST 31 ALT 18 Alkaline Phosphatase 67 Total Protein 4.8 L Albumin 2.5 L Globulin 2.3 Albumin/Globulin Ratio 1.1 Exam Vital Signs (past 8 hours): - 03/06/23 23:00 03/06/23 23:00 03/07/23 00:00 Temperature Pulse Rate 89 Respiratory Rate 30 H Blood Pressure 131/62 Pulse Oximetry Oxygen Delivery Method Room Air 03/07/23 00:00 03/07/23 00:00 03/07/23 00:08 Temperature 98.6 F Pulse Rate 76 74 Respiratory Rate 29 H 28 H Blood Pressure 124/59 L Pulse Oximetry 93 93 Oxygen Delivery Method 03/07/23 00:59 03/07/23 01:00 03/07/23 01:00 Temperature Pulse Rate 80 79 Respiratory Rate 32 H 32 H Blood Pressure 124/60 Pulse Oximetry Oxygen Delivery Method 03/07/23 02:00 03/07/23 02:00 03/07/23 02:11 Temperature Pulse Rate 75 74 Respiratory Rate 27 H 28 H Blood Pressure 120/58 L Pulse Oximetry Oxygen Delivery Method 03/07/23 03:00 03/07/23 03:00 03/07/23 03:01 Temperature Pulse Rate 75 74 Respiratory Rate 31 H 31 H Blood Pressure 120/58 L Pulse Oximetry Oxygen Delivery Method 03/07/23 04:00 03/07/23 04:01 03/07/23 04:01 Temperature 98.4 F Pulse Rate 79 Respiratory Rate 24 Blood Pressure 121/52 L Pulse Oximetry 94 Oxygen Delivery Method Room Air 03/07/23 04:23 03/07/23 05:00 03/07/23 05:00 Temperature Pulse Rate 76 79 Respiratory Rate 30 H 29 H Blood Pressure 118/56 L Pulse Oximetry Oxygen Delivery Method 03/07/23 05:02 03/07/23 05:59 03/07/23 06:00 Temperature Pulse Rate 79 82 Respiratory Rate 28 H 27 H Blood Pressure 124/59 L Pulse Oximetry Oxygen Delivery Method Oxygen Delivery Method Room Air Oxygen Flow Rate 1 Narrative Exam Narrative: alert awake and not in distress Assessment & Plan Assessment & Plan narrative: 1) Fracture of femoral neck, closed: Qualifiers: Encounter type: initial encounter Laterality: left Qualified Code(s): S72.002A - Fracture of unspecified part of neck of left femur, initial encounter for closed fracture Status: Acute (2) Ganglion cyst of finger of right hand: Status: Acute (3) Finger pain, right: Status: Acute Assessment & Plan narrative: Assessment & Plan narrative: NEURO: # Acute encephalopathy -- Secondary to post anesthetic -- Avoid sedatives -- Cont frequent reorientation -- ABG stable much better now as per nurse RESP: # Acute hypoxemia respiratory failure -- Secondary to atelectasis from post op -- HOB elevation -- Aspiration precaution -- Encourage IS once mentation improve -- Goal SPO2 > 88% CVS: # A fib w/ RVR -- off diltiazem gtt at 6 am due to hypotension and will watch for now without po cardizem , if recurs start cardizem 60 mg er po bid now on amiadarone as per hospitalist -- GOal HR < 110 -- Check TTE for valve issues -- CHADVASC score 3->on lovenox and aspirin 81 mg po for dvt prophylaxis for now , hold eliquis for atr fib as pt had a one time post op stress event -- High lytes goal -- If develop hypotension while on diltiazem then will consider amiodarone gtt : -- Pending BMP -- High lytes goal ENDO: -- Goal BS < 180 will watch for acute infection / beeding arrythhmias and ileus and delirium , keep urine output more than 30 cc per hr Time Spent With Patient Time with patient: 30 to 49 minutes with 50% spent counseling/coordinating care, the pt was managed for tele critical care using audio visual guidance , the pt is in [place], [place] and i am based in [facility], the rn at the [facility] helped me address and manage all concerns during multidiscilinary rounds Time Spent With Patient Time with patient: 30 to 49 minutes with 50% spent counseling/coordinating care Time Spent With Patient Time with patient: 30 to 49 minutes with 50% spent counseling/coordinating care
[2023-03-07] MEDS: ENOXAPARIN 40 MG/0.4 ML SYRINGE SUBCUT (08:26)
[2023-03-07] MEDS: AMIODARONE 200 MG TABLET 100 MG PO (08:26)
[2023-03-07] MEDS: DOCUSATE 100 MG CAPSULE PO (08:26)
[2023-03-07] MEDS: ASPIRIN EC 81 MG TABLET PO (08:26)
--- NOTE | 2023-03-07 10:53 | PM.PNPO.1 ---
Subjective Subjective Interval history: Patient is postoperative day 2. Of a left total hip arthroplasty due to a femoral neck fracture. Patient is doing well today. Having some pain but it is well controlled. Sitting up in bed working on her computer. Exam Vital Signs (past 8 hours): - 03/07/23 03:00 03/07/23 03:00 03/07/23 03:01 Temperature Pulse Rate 75 74 Respiratory Rate 31 H 31 H Blood Pressure 120/58 L Pulse Oximetry Oxygen Delivery Method 03/07/23 04:00 03/07/23 04:01 03/07/23 04:01 Temperature 98.4 F Pulse Rate 79 Respiratory Rate 24 Blood Pressure 121/52 L Pulse Oximetry 94 Oxygen Delivery Method Room Air 03/07/23 04:23 03/07/23 05:00 03/07/23 05:00 Temperature Pulse Rate 76 79 Respiratory Rate 30 H 29 H Blood Pressure 118/56 L Pulse Oximetry Oxygen Delivery Method 03/07/23 05:02 03/07/23 05:59 03/07/23 06:00 Temperature Pulse Rate 79 82 Respiratory Rate 28 H 27 H Blood Pressure 124/59 L Pulse Oximetry Oxygen Delivery Method 03/07/23 06:00 03/07/23 06:15 03/07/23 06:30 Temperature Pulse Rate 78 77 83 Respiratory Rate 28 H 29 H 28 H Blood Pressure Pulse Oximetry Oxygen Delivery Method 03/07/23 06:45 03/07/23 07:00 03/07/23 07:00 Temperature Pulse Rate 81 81 Respiratory Rate 30 H 32 H Blood Pressure 121/56 L Pulse Oximetry Oxygen Delivery Method 03/07/23 07:15 03/07/23 07:30 03/07/23 07:45 Temperature Pulse Rate 79 77 81 Respiratory Rate 30 H 26 H 30 H Blood Pressure Pulse Oximetry Oxygen Delivery Method 03/07/23 08:00 03/07/23 08:00 03/07/23 08:15 Temperature Pulse Rate 79 83 Respiratory Rate 29 H 29 H Blood Pressure 114/57 L Pulse Oximetry Oxygen Delivery Method 03/07/23 08:30 03/07/23 08:45 03/07/23 09:00 Temperature Pulse Rate 86 84 Respiratory Rate 37 H 29 H Blood Pressure 122/60 Pulse Oximetry Oxygen Delivery Method 03/07/23 09:00 03/07/23 09:15 Temperature Pulse Rate 90 92 H Respiratory Rate 34 H 28 H Blood Pressure Pulse Oximetry Oxygen Delivery Method Oxygen Delivery Method Room Air Oxygen Flow Rate 1 Narrative Exam Narrative: Some swelling to the left leg but dressing is clean and dry. Positive dorsiflexion and plantar flexion of the toes and ankles. Palpable pedal pulses. Nontender to palpation over the posterior aspect of the calf. Objective Labs 03/06/23 04:21 03/06/23 04:21 [facility] Medical History Ganglion cyst of finger of right hand Surgical History History of cataract removal with insertion of prosthetic lens Social History household members: significant other Smoking Status: Former smoker alcohol intake: never Assessment & Plan Post-op Postoperative Procedures: Procedures Operation Date: 03/05/23 14:30 Actual Procedure Side Surgeon p Total Hip Arthroplasty Left Juve Duran MD Postoperative day: 2 Postoperative plan narrative: Patient doing well after a left hip replacement. Patient can be weight-bearing as tolerated. Patient has new found AFib and will be discharged when medically stable.
[2023-03-07] MEDS: METOPROLOL IR 25 MG TABLET PO ×2 (12:52→21:37)
--- NOTE | 2023-03-07 13:32 | PT-IP ANOTE ---
Addendum entered and electronically signed by Gigi Stubbs PT 03/07/23 13:42: Pt was assisted to comfortable seated position at EOB, with tray table in front of her, call light within reach and all needs met. RN was notified of pt's refusal. Original Note: After PT introduction, pt is initially agreeable to working with PT and states she would like to try to make it to the bathroom. However, starting to perform STS, the pt stopped and stated she did not feel comfortable performing STS with PT only and requests KAMI Pisano to be present to assist. Pt then got ready to perform STS, but then refused to continue, stating she does not feel like getting up, despite education regarding benefit of performing functional mobility. The pt continued to refuse to attempt STS, but was agreeable to attempt seated therex. Pt performed ankle pumps x15, but then refused to perform LAQs passively or actively due to pain. She refused further PT interventions at this point, again despite education regarding benefits of performing therex. Pt did not participate in enough billable skilled PT intervention. PT will continue to follow.
[2023-03-07] MEDS: AMIODARONE 150 MG/100 ML PIGGYBACK 600 MG IV (14:08)
[2023-03-07] MEDS: AMIODARONE 360 MG/200 ML PIGGYBACK 33.33 MG IV (14:20)
--- NOTE | 2023-03-07 16:10 | PC.NURSE ---
Patient extremely resistant to ambulation, stating complaints of pain and stiffness. Medicated per MAR, states they do not want to take any narcotics for any reason. Educated on importance of ambulation after surgery and potential consequences. Patient has dangled at bedside for the majority of the day.
--- NOTE | 2023-03-07 17:48 | CM.DPC ---
DCP continued: CONVERTING SUPERVISOR reviewed EMR. Unable to meet with patient due to triaging needs. Per provider, cleared to d/c to SNF as soon as able. CONVERTING SUPERVISOR spoke with Lorenzo at [facility]. Due to patient's insurance, unable to start auth until tomorrow. CM team will follow up with María at [facility] tomorrow. CM team will confirm d/c plan with patient tomorrow. CM team will continue to follow closely. TERRY Campos
--- NOTE | 2023-03-07 17:57 | P.PN_ITS ---
Subjective Subjective Interval history: Patient doing well and has no complaints. Has been NSR with HR in 80-90's today. She is ok starting eliquis for stroke prophylaxis. Addendum: Went back into A-fib RVR in the afternoon. Amio drip restarted. Exam Vital Signs (past 8 hours): Oxygen Delivery Method Room Air Oxygen Flow Rate 1 Narrative Exam Narrative: No acute distress, fluent speech. Lungs are clear, normal effort. Heart is regular, no murmur gallop or rub. Abdomen is soft, non-distended. Extremities are free of edema. Objective Labs 03/06/23 04:21 03/06/23 04:21 REPLACED BY [facility] Medical History Ganglion cyst of finger of right hand Surgical History History of cataract removal with insertion of prosthetic lens Social History household members: significant other Smoking Status: Former smoker alcohol intake: never Assessment & Plan Assessment & Plan narrative: 1. Acute left femoral neck fracture, POA. -ortho repair on 03/05 -IV pain medication -will need SNF per PT -eliquis as below 2. A-fib with RVR, POA. -Recurrence of AFib with RVR postop treated with amiodarone, became hypotensive with IV diltiazem. -plan oral amiodarone and low-dose metoprolol due relatively low blood pressures at baseline. -recommend outpatient Cardiology evaluation. -assess for anticoagulation prior to discharge. -back on amio drip due to RVR recurrence on 03/07, converted to NSR after a few hours -transition to po amio 200mg BID for 1 week then 200mg daily after -started eliquis due to [id number] of 3 3. Acute hypoxic respiratory failure, present on admission and resolved. Monitor clinically. CODE: Full Proxy: Gretta Shukla, family Dispo: To SNF on 03/08 on po amio pending insurance auth.
[2023-03-07] MEDS: OXYCODONE IR 5 MG TABLET PO ×2 (18:59→22:24)
[2023-03-07] MEDS: AMIODARONE 360 MG/200 ML PIGGYBACK 16.7 MG IV (20:32)
[2023-03-07] MEDS: APIXABAN 5 MG TABLET PO (21:37)
[2023-03-08] VITALS (23 sets, daily range): BP systolic 113–137; BP diastolic 56–65; PULSE 54–69; RESP 17–27; TEMP 36.1–36.6; O2SAT 90–99
[2023-03-08] MEDS: OXYCODONE IR 5 MG TABLET PO (04:25)
[2023-03-08] MEDS: ACETAMINOPHEN 325 MG TABLET 650 MG PO ×2 (04:25→15:08)
--- NOTE | 2023-03-08 07:30 | PM.PNPO.1 ---
Subjective Subjective Interval history: Patient is postoperative day 3 of a left total hip arthroplasty due to a femoral neck fracture. Patient is doing well this morning. Having some pain but it is well controlled. Sitting up in bed having breakfast. She is able to ambulate to the toilet with assistance. Exam Vital Signs (past 8 hours): - 03/07/23 23:36 03/07/23 23:36 03/08/23 00:00 Temperature 97.8 F Pulse Rate 64 Respiratory Rate 33 H Blood Pressure 117/55 L Pulse Oximetry 92 03/08/23 00:04 03/08/23 00:04 03/08/23 01:00 Temperature Pulse Rate 60 Respiratory Rate 23 Blood Pressure 122/60 117/56 L Pulse Oximetry 03/08/23 01:00 03/08/23 01:45 03/08/23 02:00 Temperature Pulse Rate 59 L 60 Respiratory Rate 24 26 H Blood Pressure 117/58 L Pulse Oximetry 03/08/23 02:00 03/08/23 03:00 03/08/23 03:00 Temperature Pulse Rate 60 63 Respiratory Rate 26 H 27 H Blood Pressure 136/65 Pulse Oximetry 03/08/23 04:00 03/08/23 04:00 03/08/23 04:00 Temperature 97.0 F L Pulse Rate 68 66 Respiratory Rate 19 25 H Blood Pressure 130/59 L 130/59 L Pulse Oximetry 92 03/08/23 04:47 Temperature Pulse Rate 68 Respiratory Rate 26 H Blood Pressure Pulse Oximetry Oxygen Delivery Method Room Air Oxygen Flow Rate 1 Narrative Exam Narrative: Swelling to the left leg but dressing is clean and dry. Positive dorsiflexion and plantar flexion of the toes and ankles. Palpable pedal pulses. Nontender to palpation over the posterior aspect of the calf. Tender over posterior aspect of both thighs. She says this started yesterday but pain controled with new Rx of oxycodone. Objective Labs 03/06/23 04:21 03/06/23 04:21 [facility] Medical History Ganglion cyst of finger of right hand Surgical History History of cataract removal with insertion of prosthetic lens Social History household members: significant other Smoking Status: Former smoker alcohol intake: never Assessment & Plan Post-op Assessment and plan (1) S/P total hip arthroplasty: Postoperative Procedures: Procedures Operation Date: 03/05/23 14:30 Actual Procedure Side Surgeon p Total Hip Arthroplasty Left Juve Duran MD Postoperative day: 3 Postoperative plan narrative: Patient doing well after a left hip replacement. Patient can be weight-bearing as tolerated. Patient has new found AFib and will be discharged when medically stable. Will follow-up in clinic in 2 weeks for wound check. Follow up with Dr. Duran in 6 weeks for repeat imaging and evaulation.
[2023-03-08] MEDS: METOPROLOL IR 25 MG TABLET PO (08:20)
[2023-03-08] MEDS: DOCUSATE 100 MG CAPSULE PO (08:21)
[2023-03-08] MEDS: AMIODARONE 200 MG TABLET PO (08:21)
[2023-03-08] MEDS: APIXABAN 5 MG TABLET PO (08:21)
[2023-03-08 08:37] LABS: Hematocrit 27.8 % (36-46); Hemoglobin 9.5 g/dL (12.0-16.0); Mean Corpuscular HGB Conc 34.2 % (30-36); Mean Corpuscular Hemoglobin 31.9 PG (26-34); Mean Corpuscular Volume 93.3 fL (80-100); Platelet Count 230 X10^3/uL (150-400); Red Blood Cell Count 2.98 X10^6/uL (4.0-5.2); Red Cell Distribution Width 12.7 % (11.6-14.8); White Blood Cell Count 9.4 X10^3/uL (4.5-11.0)
[2023-03-08 08:38] LABS: BUN Creatinine Ratio 17.9 (6-22); Blood Urea Nitrogen 12 mg/dL (7-17); Calcium 8.2 mg/dL (8.4-10.2); Carbon Dioxide 30 mmol/L (22-32); Chloride 101 mmol/L (98-107); Estimated Glomerular Filt Rate > 60 mL/min (>60); Glucose 108 mg/dL (80-110); HEMOLYSIS < 15 (0-50); Lactate (Lactic Acid) 1.2 mmol/L (0.7-2.1); Potassium 3.6 mmol/L (3.4-5.1); Sodium 133 mmol/L (137-145)
--- NOTE | 2023-03-08 12:10 | PT.IPTN ---
Addendum entered and electronically signed by Najma Lu PT 03/08/23 15:33: Met with pt later this PM to dispense and size FWW per orders prior to discharge. Original Note: Current Diagnoses Ganglion, right hand (03/03/23) Pain in right finger(s) (03/03/23) Fracture of unspecified part of neck of left femur, initial encounter for closed fracture (03/03/23) Presence of unspecified artificial hip joint (03/03/23) Surgery Performed Operation Date: 03/05/23 14:30 Actual Procedures p Total Hip Arthroplasty(Left) - Juve Duran MD Physical Therapy Treatment Note M2 PT-IP Current Condition Start: 03/06/23 10:08 Freq: NEEDED Status: Active Protocol: Document 03/06/23 10:50 MB (Rec: 03/06/23 11:49 MB [id number]) Physical Therapy Current Condition Current Condition Evaluation Date 03/06/23 M3 PT-IP Subjective Start: 03/06/23 10:08 Freq: NEEDED Status: Active Protocol: Document 03/08/23 12:10 AW (Rec: 03/08/23 12:56 AW [id number]) Subjective Physical Therapy Visit Type Type Treatment Note Visit Start Time 11:30 Visit Stop Time 12:10 Total Visit Minutes 40 Notes Co-tx with OT for 20 minutes during this encounter. Number of [employer] Visits 0 Physical Therapy Visit Comments Patient Comments Pt is considering if she could go home or not. Hopeful that therapists will be able to help her decide. Therapy Pain Assessment Pain When Pain Assessed During Mobility Pain Present Pain Present Pain Reported Location Left Hip Intensity 4 Scale Used 2/10 at rest; 4/10 with mobility M4 PT-IP Mobility and Gait Start: 03/06/23 10:08 Freq: NEEDED Status: Active Protocol: Document 03/08/23 12:10 AW (Rec: 03/08/23 12:56 AW [id number]) PT-Bed Mobility Assessment Supine to Sit Supine to Sit Contact Guard Assistance Scooting Scooting to Edge of Bed Standby Assistance PT-Transfer Assessment Sit to and From Stand Sit to and from Stand Contact Guard Assistance, Minimal Assistance,1 Person Assistance,Use of Upper Extremities Equipment Transfer Assistive Device Gait Belt,Front Wheeled Walker Orthotic/Prosthetic Devices or Brace: No Transfers Transfer Destination Chair,Toilet Transfer Technique Stand Step Pivot Transfer Ability Level of Assist Contact Guard Assistance,Use of Upper Extremities Comments Mobility Comments Pt was lying in bed as PT arrived. PT confirms pt sleeps in a flat bed at home. PT flattens HOB and pt needs only CGA to slide her LLE across toward the right side of bed. She sits up SBA and confirms the height of the bed is similar to her bed at home. She stands with min assist and needs cues to extend knees and hips. She uses FWW to ambulate 20 feet to the toilet where commode is set over toilet for more advantageous height and for UE support. Pt transfers with CGA and voids her bladder. IND with pericare . Pt stands from the commode with good use of her arms and CGA. She ambulates to the chair, transferring with SBA. She stands from the chair again with SBA/CGA. She uses FWW to ambulate 25 feet before returning to the chair. Pt left with OT for further assessment. Gait Assessment Gait Gait Assistance Required: Standby Assistance Distance (Feet) 25 Able to Maintain Weight Bearing Status Yes During Gait Assistive Devices Assistive Device Gait Belt,Front Wheeled Walker Orthotic/Prosthetic Devices or Brace: No Gait Deviations General Gait Pattern Antalgic,Decreased Stride Length,Decreased Feet Clearance,Flexed Trunk,Step-to Gait,Wide Based Gait Factors Limiting Gait Function Factors Limiting Gait Function Decreased Activity Tolerance, Decreased Strength,Limited Range of Motion,Pain,Poor Balance Comments Gait Comments See mobility comments for details. Pt complains of right knee pain during gait and seems to lack terminal extension. This does affect gait quality but pt is able to complete gait tasks with just SBA. PT-Balance Assessment Sitting Balance and Reactions Static Sitting Balance Ability Good Dynamic Sitting Balance Ability Good Standing Balance and Reactions Static Standing Balance Ability Good Dynamic Standing Balance Ability Fair Device Used FWW M5 PT-IP Objective Assessments Start: 03/06/23 10:08 Freq: NEEDED Status: Active Protocol: Document 03/06/23 10:50 MB (Rec: 03/06/23 11:49 MB [id number]) Orientation Orientation/Cognition Level of Alertness Alert Orientation Name,Age,Birthday,Month,Date, Year,Day of Week,Place, Situation Language Function Ability No Deficits Noted Safety Awareness Understands Safety Issues Memory Description No Deficits Noted Gross Range of Motion Upper Extremity ROM Impairments Defer to OT, appears functional Lower Extremity ROM Assessment Bilaterally Impaired Strength Lower Extremity Strength Assessment Bilaterally Impaired Hip Cannot tolerate MMT post-op on the left, pain on the right as well Knee Same as above Ankle Functional Comments Strength Comments Functional weakness in B hips and knees with STS and stepping today Sensation Assessment Sensation Gross Sensation Left LE Impaired Sensation Description Numbness Comments Sensation Comments Pt reports numbness L2-3 dermatome post-op LLE Muscle Tone Muscle Tone WNL Yes M6 PT-IP Treatment Start: 03/06/23 10:08 Freq: NEEDED Status: Active Protocol: Document 03/08/23 12:10 AW (Rec: 03/08/23 12:56 AW [id number]) Physical Therapy Treatment Exercises Exercises Ankle Pumps,Gluteal Sets,Quad Sets,Heel Slides,Short Arc Quads Education Education Provided Precautions,Weight Bearing Status,Safety Other Treatments Other Treatment Performed Discussed equipment needs for home if pt plans to discharge home. M7 PT-IP Assessment and Plan Start: 03/06/23 10:08 Freq: NEEDED Status: Active Protocol: Document 03/08/23 12:10 AW (Rec: 03/08/23 12:56 AW [id number]) PT Summary Assessment and Plan Potential Rehabilitation Potential Good Summary Impairments Pain,ROM,Strength,Balance,Bed Mobility,Transfers,Gait, Activity Tolerance Progress Towards Goals Progressing Toward Goals,Slow Progress due to Medical Issues Assessment Summary Miracle made excellent progress with her mobility this date. She did need min assist to stand from the bed but would be able to sleep in her tall recliner at home. She needed no more than CGA to stand from taller surfaces or surfaces with arm rests. She recalls her hip precautions and is careful to adhere to them during all mobility. While pt would certainly benefit from SNF, she seems to have turned a corner and discharge home may become a safe option as her mobility progresses. If discharging home, pt would need home health services. Goals Bed Mobility Goal Independent Transfer Goal Standby Assistance,Front Wheeled Walker Gait Goal Standby Assistance,Front Wheel Walker Gait Distance 100 Days to Meet Goals 5 Frequency of Treatment Frequency Of Treatment Twice a Day Treatment Plan Physical Therapy Treatment Plan Bed Mobility Training,Transfer Training,Gait Training, Therapeutic Exercise,Balance Retraining,Post Op Education, Discharge Planning,Hot or Cold Pack,Neuromuscular Re-ed Other Recommendations and Next Treatment sit to stand from various Focus height surfaces Precautions Anterior Hip Precautions No Hip Extension,No Hip External Rotation Weight Bearing Status Weight Bearing Status Weight Bear as Tolerated Recommendations To Nursing Amount of Assist Needed 1 Person Assist Discharge Recommendations PT Discharge Recommendations Home with Assistance,Home Health,SNF Rehab Other Discharge Recommendations SNF vs home with HH Transportation Needs at Discharge Wheelchair/Cabulance
--- NOTE | 2023-03-08 12:15 | OT.IP.EVAL ---
Current Diagnoses Ganglion, right hand (03/03/23) Pain in right finger(s) (03/03/23) Fracture of unspecified part of neck of left femur, initial encounter for closed fracture (03/03/23) Presence of unspecified artificial hip joint (03/03/23) Surgery Performed Operation Date: 03/05/23 14:30 Actual Procedures p Total Hip Arthroplasty(Left) - Juve Duran MD Past Medical History (Last Reviewed 03/03/23 @ 20:25 by Saravanan Rojas MD) Ganglion cyst of finger of right hand Surgical History (Last Reviewed 03/03/23 @ 20:25 by Saravanan Rojas MD) History of cataract removal with insertion of prosthetic lens Occupational Therapy Inpatient Evaluation/Re-Eval M1 PT/OT-IP Prior Functional Status Start: 03/06/23 10:08 Freq: NEEDED Status: Active Protocol: Document 03/08/23 12:44 CGR (Rec: 03/08/23 12:57 CGR [id number]) Medical Review Prior Functional Status Medical History Reviewed Yes Diet/Fluid Consistency Regular Communication WNLs Mobility and Gait I, did not use AD but had trouble with her balance and strength d/t right knee arthritis Activities of Daily Living and IADL's Pt states she is IND in all ADLS at baseline. Social History Household Members significant other Living Arrangements House Number of Floors (Floors) One Floor Number of Stairs To Enter/Railing? Threshold and no step to enter Home Environment Standard Height Toilet,Walk in Shower,Tub/Shower Home Equipment Front Wheel Walker,Bedside Commode,Raised Toilet Seat w/ Armrests,Tub Transfer Bench Employment Status Retired Additional Social History Comment Pt has a high recliner that she plans to use. M2 OT-IP Current Condition Start: 03/08/23 12:44 Freq: Status: Active Protocol: Document 03/08/23 12:44 CGR (Rec: 03/08/23 12:57 CGR [id number]) Occupational Therapy Current Condition Current Condition Evaluation Date 03/08/23 Treatment Diagnosis Fall with L hip fx. s/p L LILIAM, A fib with RVR Diagnosis Onset Date 03/03/23 Post Operative Precautions Anterior Hip Precautions No Hip Extension,No Hip External Rotation Weight Bearing Status Weight Bearing Status Weight Bear as Tolerated M3 OT- IP Subjective and Pain Start: 03/08/23 12:44 Freq: Status: Active Protocol: Document 03/08/23 12:44 CGR (Rec: 03/08/23 12:57 CGR [id number]) OT- Subjective Occupational Therapy Visit Type Type Initial Evaluation Visit Start Time 11:38 Visit Stop Time 12:15 Total Visit Minutes 37 Notes partial co-treat with P.T. OT Pain Assessment Pain When Pain Assessed During Mobility Pain Present Pain Present Pain Reported Location Left Hip Intensity 4 Scale Used Numeric (0 - 10) Management Techniques Distraction,Modification of Treatment,Re-positioning M4 OT- IP ADL's Start: 03/08/23 12:44 Freq: Status: Active Protocol: Document 03/08/23 12:44 CGR (Rec: 03/08/23 12:57 CGR [id number]) OT [id number] Comments OT Self-Feeding Comments not meal time OT ADL-Grooming General Evaluation Grooming Ability Independent Comments OT Grooming Comments washed hands at sink OT ADL-Oral Care Comments Oral Care Comments not performed OT ADL-Dressing Comments OT Dressing Comments not performed, pt plans to have her roommate and daughter in law help as needed. OT ADL-Toileting General Evaluation Toileting Ability Standby Assistance Areas Needing Assistance Manage Clothing Comments OT Toileting Comments Pt urinated seated on toielt and performed pericare without assits. OT ADL-Bathing Comments OT Bathing Comments not performed M5 OT- IP IADL's Start: 03/08/23 12:44 Freq: Status: Active Protocol: Document 03/08/23 12:44 CGR (Rec: 03/08/23 12:57 CGR [id number]) OT-Instrumental Activities of Daily Living Deficits IADL Deficits Identified No Deficits Home Safety Awareness Awareness of Need for Assistance at Home Good Awareness Ability to Problem Solve Emergency Able to Problem Solve Situations Medication Management Medication Management No Deficits Identified Money Management Money Management No Deficits Identified Meal Preparation Meal Preparation Caregiver Provides Assist Historic Sites Registrar Historic Sites Registrar Caregiver Provides Assist Driving Driving Comments Pt understands that she can not drive at this time. M6 OT- IP Functional Cognition Start: 03/08/23 12:44 Freq: Status: Active Protocol: Document 03/08/23 12:44 CGR (Rec: 03/08/23 12:57 CGR [id number]) Cognitive Factors Limiting Selfcare Function Cognitive Ability Level of Alertness Alert Patient Orientation Name,Age,Birthday,Month,Date, Year,Day of Week,Place, Situation Attention Span Ability Capable of Focused Attention, Capable of Sustained Attention OT- Vision and Hearing OT- Hearing Assessment OT- Hearing Assessment WFL OT- Vision Assessment Vision History Cataracts Visual Acuity WFL Visual Attentiveness WFL Occular Pursuits WFL Visual Convergence WFL Vision Assessment Comments cateract sx, now with one farsighted and 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 sighted eye M7 OT- IP Mobility and Balance Start: 03/08/23 12:44 Freq: Status: Active Protocol: Document 03/08/23 12:44 CGR (Rec: 03/08/23 12:57 CGR [id number]) OT- Bed Mobility Assessment Supine to Sit Supine to Sit Assist Contact Guard Assistance Scooting Scooting to Edge of Bed Standby Assistance OT-Transfer Assessment Sit to and From Stand Sit to and from Stand Contact Guard Assistance, Minimal Assistance,1 Person Assistance Transfers Transfer Ability Contact Guard Assistance Technique Transfer Destination Bed,Chair,Toilet Transfer Technique Stand Step Pivot Devices Transfer Assistive Devices Gait Belt,Front Wheeled Walker Comments Mobility Comments Pt needed min a for sit to stand from bed but CGA from chair or toielt. OT- Balance Assessment Sitting Balance and Reactions Static Sitting Balance Ability Good Dynamic Sitting Balance Ability Good M8 OT- IP Objective Assessments Start: 03/08/23 12:44 Freq: Status: Active Protocol: Document 03/08/23 12:44 CGR (Rec: 03/08/23 12:57 CGR [id number]) OT Gross Range of Motion Upper Extremity Range of Motion Assessment Within Functional Limits OT Strength Upper Extremity Strength Assessment Within Functional Limits Comments Strength Comments 4+/5 throughout OT- Coordination Assessment Upper Extremity Finger to Nose Test Within Functional Limits Finger Tapping Test Within Functional Limits OT-Muscle Tone Assessment Muscle Tone WNL Yes OT Sensation Assessment Edema Edema Absent M9 OT- IP Assessment and Plan Start: 03/08/23 12:44 Freq: Status: Active Protocol: Document 03/08/23 12:44 CGR (Rec: 03/08/23 12:57 CGR [id number]) OT Summary Assessment and Plan Potential Rehabilitation Potential Good Analytic Complexity at Evaluation Moderate Summary OT Impairments Pain,Strength,Balance, Functional Mobility,Grooming, Dressing,Toileting,Bathing, Toilet Transfers,Shower Transfers,Activity Tolerance Progress Towards Goals Slow Progress due to Pain,Slow Progress due to Medical Issues,Slow Progress due to Activity Tolerance Assessment Summary Pt presents as a moderate complexity evaluation s/p admit for fall with L hip fx. Pt underwent L LILIAM and is WBAT with anterior precautions. Pt then has Afib with RVR that prolonged her stay. Pt did well today and is progressing well. Pt would benefit from SNF but is requesting home. Pt is ok for home with home health and family assist. Goals Grooming Goal Independent Dressing Goal Independent Toileting Goal Independent Bathing Goal Independent Toilet Transfer Goal Independent Shower Transfer Goal Independent Days to Meet Goals 10 Frequency of Treatment Frequency Of Treatment Once a Day Treatment Plan OT Treatment Plan ADL Training,Functional Mobility,Patient/Family Education,Discharge Planning Other Treatment Recommendations and Next shower Treatment Focus Discharge Recommendations OT Discharge Recommendations Home with Assistance,Home Health Transportation Needs at Discharge Private Vehicle
--- NOTE | 2023-03-08 15:48 | PC.NURSE ---
Day shift: pt A&Ox4, able to stand at bedside with assist and use of FWW. Pt up to chair for lunch, ambulated with PT and OT. Pt agreeable to plan of discharge, HH set up with farm or ranch animal caretaker. Walker distributed to pt from PT. Discharge paperwork discussed with pt, pt educated on stool softeners, new cardiac medications, anticoagulation, and when to follow up with various providers. IV's discontinued, telemetry removed. Pt wheeled via WC to private vehicle with pt FWW at approximately 1545.
--- NOTE | 2023-03-08 16:28 | CM.DPC ---
DCP Continued: CLOTH TESTER reviewed EMR. Per [facility], unable to accept optum. Per provider, patient cleared to d/c today. CLOTH TESTER entered room and introduced self and role. Patient reports open to [facility] or [facility] pending concerns with COVID patients. [facility] and [facility] answered COVID questions and agreed to review/attempt auth. Per OT/PT, safe for home with HH and patient now wants home. Patient accompanied by roommate and DIL. Patient agreeable to [facility] for PT/OT/RN. Patient concerned about cardiology referral. CLOTH TESTER updated RN on cardiology concerns. CLOTH TESTER placed verbal readback order for home with walker and HH order. CLOTH TESTER spoke with Elizabeth. Agreed to review. Confirmed they have an opening to start care tomorrow. CM Gas Line Servicer Cheryl agreed to send ref to [facility] for review. Plan: d/c home today with family support. [facility] pending acceptance. Transport with DIL in POV. CM team will continue to follow as needed TERRY Campos
--- NOTE | 2023-03-09 17:20 | P.DS_ITS ---
History of Present Illness History of Present Illness Chief complaint: GLF, Left Hip Pain Narrative: Ms. Crystal is an 82W with no significant PMH, on no medications who presents after a fall. She was walking her dogs, and was pulled off balance and landed on her left hip. She was unable to ambulate and had significant pain so presented to the hospital. In the ED workup was done, vitals notable for afebrile, heart rate 80s, blood pressure 180s/70s, sats 100% on room air. Labs reviewed by me and notable for WBC 7.3, hgb 14, plts 339. creatinine 0.72. XRay shows acute displaced left femoral neck fracture. Ortho consulted and recommended needed repair. She was admitted for further treatment. Discharge Providers Provider Date of admission: 03/03/23 13:33 Discharge Date: 03/08/23 Primary care physician: Aleja Hawk DO Consults: 03/04/23 16:56 Consult to Orthopedic Surgery Routine Comment: Merna Consulting Provider: [facility] Reason for consultation: hip fracture 03/05/23 20:28 Consult to Discharge Planning Routine Comment: Consult to Occupational Therapy Evaluate & Treat Comment: Physician Instructions: Evaluate and treat Consult to Physical Therapy Evaluate & Treat Comment: Physician Instructions: post op LILIAM protocol 03/05/23 22:06 Consult to Tele-religious ritual slaughterer Routine Comment: Consulting Provider: [facility] Reason for consultation: Water System Operator services 03/08/23 14:24 Consult to Home Health Routine Comment: Reason For Exam: RN/PT/OT 03/08/23 14:41 Consult to Physical Therapy Evaluate & Treat Comment: Physician Instructions: walker for home use Discharge provider: Saravanan Rojas MD Summary Hospital Course Discharge Diagnosis: 1. Acute left femoral neck fracture 2. Atrial fibrillation with RVR 3. Acute hypoxemic respiratory failure Hospital Course: Ms. Crystal was admitted after a mechanical fall with a left femoral neck fracture. She had repair done on 03/05 with orthopedic surgery. She did well after from orthopedic standpoint. She should follow up with them in two weeks. She did go into atrial fibrillation with RVR. She improved after being started on metoprolol and being on an amiodarone load and converted back to sinus rhythm. She was discharged on amio and metoprolol and apixaban as well given CHADSVASC2 of 3. ECHO showed a normal EF. She was encouraged to follow up with her PCP within two weeks. She had cardiology referral placed. Exam Vital Signs (past 8 hours): Oxygen Delivery Method Room Air Oxygen Flow Rate 1 Narrative Exam Narrative: No acute distress Lungs are clear Heart is regular, no murmur Abdomen is soft, non-distended. Extremities with no edema Objective Labs 03/08/23 08:14 03/08/23 08:14 [facility] Medical History Ganglion cyst of finger of right hand Surgical History History of cataract removal with insertion of prosthetic lens Social History household members: significant other Smoking Status: Former smoker alcohol intake: never Discharge Plan Discharge Plan Patient Disposition: Home Health Service Provider Discharge Comment: Ms. Crystal came in to the hospital with a broken hip. She had the repaired. She had a fast abnormal heart rhythm, called atrial fibrillation. She was started on multiple new medicines for this. She should follow up with her PCP within one week and follow up with orthopedic surgery within two weeks. Discharge orders & Medications Prescriptions: New amiodarone 200 mg Tablet 200 mg PO BIDWM Qty: 60 0RF Eliquis 5 mg Tablet 5 mg PO BID Qty: 60 0RF polyethylene glycol 3350 17 gram Powder In Packet 17 g PO DAILY PRN (Reason: Constipation) Qty: 14 0RF oxycodone 5 mg Tablet 5 mg PO Q3H PRN (Reason: Pain, Moderate (4-6)) Qty: 12 0RF metoprolol tartrate 25 mg Tablet 25 mg PO BID Qty: 60 0RF Follow up/Referrals: [facility] [Provider Group] - 1 Month (new afib with rvr) Juve Duran MD [Physician] - 2 Weeks (Call for appointment in ortho clinic w/ PA in 2 weeks for wound check. Make appt to see Dr Duran in 6 weeks for repeat imaging.) Aleja Hawk DO [Primary Care Provider] - 1 Week (hospitalized with hip fracture, and atrial fibrillation) Diet/Activity/Treatments Diet: Regular Activity: Weightbearing as tolerated to left leg. Cold/Heat Therapy: Ice to hip as needed for pain. Skin/Wound/Dressing Care Dressing: May shower. Leave Aquacel dressing in place until follow up in office. If dressing becomes saturated inside, remove and replace with clean, dry gauze. Visit Report/Discharge Packet Instructions: DI for Hip Replacement Stand Alone Forms: Patient Portal/API, Stroke Signs & Symptoms, Surgery Discharge Discharge Data Primary Care Provider: Aleja Hawk
== END 2023-03-08 15:45 | disposition home health service (06) | DRG 522 ==
LOC: ED 13:15 → AC 13:34 → ICU 03-05 20:35
PROVIDERS: Internal Medicine Pulmonary Disease; Orthopaedic Surgery Adult Reconstructive Orthopaedic Surgery; Admitting Provider Internal Medicine; Emergency Provider Emergency Medicine; Family Provider Family Medicine; PCP Family Medicine; Referring Provider Emergency Medicine; Visit Provider Internal Medicine
PROC: 0SRB0JZ Replacement of Left Hip Joint with Synthetic Substitute, Open Approach (ICD-10-PCS; CPT 27130; principal; 2023-03-05 14:30)
DX: S72.002A Fracture of unspecified part of neck of left femur, initial encounter for closed fracture (principal); I48.0 Paroxysmal atrial fibrillation; W18.30XA Fall on same level, unspecified, initial encounter; Z87.891 Personal history of nicotine dependence
CPT/HCPCS: 36415; 36600; 71045; 73502; 76000; 80048; 80053; 82550; 82805; 83605; 83735; 84484; 85014; 85018; 85025; 85027; 85610; 85730; 87797; 93005; 93010; 93306; 94760; 94762; 96374; 96375; 97116; 97162; 97166; 97530; 97535; 99232; 99233; 99284; 99285; C1776; J0171; J0282; J0330; J0690; J0780; J1100; J1170; J1650; J2250; J2270; J2274; J2405; J2704; J3010; J3490

== ENCOUNTER → 2023-04-21 11:50 | Outpatient (CLI) | payer OTHER, SELFPAY ==
[2023-03-03 14:22] VITALS: BMI 34.2
--- NOTE | 2023-04-21 11:51 | DI.RAD.S_ITS ---
Bone Density Report Name: GUILLERMO GRANT Age: 82 Sex: Female Ethnicity: White Date of : 1940 Indication: postmenopausal; screening for osteoporosis; prior fracture; Referring Provider: TONNY RASMUSSEN Study: Bone densitometry was performed. Exam Date: April 21, 2023 Accession number: [id number] Bone Density: Region BMD T-score Z-score Classification AP Spine(L1-L4) 0.987 -0.5 2.2 Normal Femoral Neck (Right) 0.599 -2.3 0.1 Osteopenia Total Hip (Right) 0.728 -1.8 0.3 Osteopenia Total Forearm (Right) 0.427 -2.8 0.2 Osteoporosis 1/3 Forearm (Right) 0.530 -2.7 0.4 Osteoporosis UD Forearm (Right) 0.314 -2.2 0.0 Osteopenia World Health Organization criteria for BMD impression classify patients as: Normal (T-score at or above -1.0), Osteopenia (T-score between -1.0 and -2.5), or Osteoporosis (T-score at or below -2.5). 10-year Fracture Risk(1): Major Osteoporotic Fracture 23% Hip Fracture 6.6% Reported Risk Factors: [place] (), Neck BMD=0.599, BMI=32.3, previous fracture (1) FRAX(R) Version 3.08. Fracture probability calculated for an untreated patient. Fracture probability may be lower if the patient has received treatment. Impression: The patient has low bone mass, based on the Right Femoral Neck T-score. The patient has an estimated ten-year risk of hip fracture of 6.6% and an estimated ten-year risk of major fracture of 23%, based on the WHO FRAX algorithm. The patient has risk factors, including: previous fracture. Discussion: BONE DENSITY IS LOW AT ONE OR MORE SKELETAL SITES. THE PATIENT'S BMD AND CLINICAL RISK FACTORS CONTRIBUTE TO THIS PATIENT'S HIGH RISK OF FRACTURE. This patient's lowest T-score is low at one or more skeletal sites. It meets the World Health Organization's (WHO) criteria for low bone mass (T-score between -1.0 and -2.5). The patient's 10-year risk of hip fracture and 10 year risk of a major osteoporotic fracture as calculated by FRAX exceeds the threshold where pharmacological therapy is recommended by the National Osteoporosis Foundation (NOF). However, all treatment decisions require clinical judgment and consideration of individual patient factors, including patient preferences, comorbidities, previous drug use, risk factors not captured in the FRAX model (e.g., frailty, falls, vitamin D deficiency, increased bone turnover, interval significant decline in bone density) and possible under or overestimation of fracture risk by FRAX. The patient should follow a healthful lifestyle (good nutrition with adequate calcium and vitamin D, and appropriate weight-bearing exercise). Follow-Up: Consider a repeat BMD and Vertebral Fracture Assessment (VFA) exam in 2 years or sooner if medically necessary, to reassess this patient's status. Reported by: JOI URENA M.D. on 04/21/2023 12:22:00 PM.
== END ==
PROVIDERS: Family Provider Family Medicine; PCP Family Medicine; Referring Provider Family Medicine; Visit Provider Family Medicine
DX: N95.9 Unspecified menopausal and perimenopausal disorder (principal); S72.002A Fracture of unspecified part of neck of left femur, initial encounter for closed fracture; M85.851 Other specified disorders of bone density and structure, right thigh
CPT/HCPCS: 77080

== ENCOUNTER → 2023-05-14 13:50 | Outpatient (CLI) | payer OTHER, SELFPAY ==
[2023-03-03 14:22] VITALS: BMI 34.2
[2023-05-18 12:13] LABS: Creatinine, Urine 169.3 mg/dL (Not Estab.); N-telo/Creat. Ratio 93 (0-89); N-telopeptide 1386 nmol BCE (Not Estab.)
== END ==
PROVIDERS: Family Provider Family Medicine; PCP Family Medicine; Referring Provider Family Medicine; Visit Provider Family Medicine
DX: M81.0 Age-related osteoporosis without current pathological fracture (principal)
CPT/HCPCS: 82523; 82570

== ENCOUNTER 2023-06-20 18:28 | Emergency (ER) | payer MEDICARE, SELFPAY ==
[2023-03-03 14:22] VITALS: BMI 34.2
[2023-06-20] VITALS (9 sets, daily range): BP systolic 132–173; BP diastolic 59–74; PULSE 34–80; RESP 18–31; O2SAT 96–99; BMI 32.3
--- NOTE | 2023-06-20 19:05 | DI.RAD.S_ITS ---
PROCEDURE: XR CHEST 1V INDICATIONS: bradycardia TECHNIQUE: One view of the chest was acquired. COMPARISON: [facility], CR, XR CHEST 1V, 05/26/2018, 18:41. [facility], CR, XR CHEST 1V, 03/05/2023, 20:45. FINDINGS: Surgical changes and devices: None. Lungs and pleura: Lungs are clear. No pleural effusions or pneumothorax. Mediastinum: Mediastinal contours appear normal. Heart size is normal. Bones and chest wall: No suspicious bony lesions. Overlying soft tissues appear unremarkable. IMPRESSION: No acute cardiopulmonary abnormality is seen. Dictated by: Esther Alvarado M.D. on 06/20/2023 at 19:33 Approved by: Esther Alvarado M.D. on 06/20/2023 at 19:37
--- NOTE | 2023-06-20 19:11 | ED.ARRPALP ---
HPI - Arrhythmia/Palpitations General Chief Complaint: Arrhythmia/Palpitations Stated Complaint: HR dropped into the 30's Time Seen by Provider: 06/20/23 18:55 Source: patient Mode of arrival: Wheelchair History of Present Illness HPI narrative: 82-year-old female with a history of paroxysmal atrial fibrillation on amiodarone and metoprolol as well as anticoagulated on Eliquis. The patient is here today because she noticed that her fit bit reported heart rates in the 30s at 35. She has not had chest pain, she has not had shortness of breath syncope or near-syncope she does shows she has she is felt off all day. No fevers no nausea or vomiting and no cough. Related Data Previous Rx's Medication Instructions Recorded polyethylene glycol 3350 17 gram 17 g PO DAILY PRN Constipation #14 03/08/23 oral powder packet ea apixaban 5 mg tablet (Eliquis) 5 mg PO BID #60 tabs 03/22/23 metoprolol tartrate 25 mg tablet 25 mg PO BID #60 tabs 03/22/23 amiodarone 100 mg tablet 50 mg (1/2 x 100 mg) PO BID #90 05/12/23 tabs Allergies Allergy/AdvReac Type Severity Reaction Status Date / Time nickel [NICKEL] Allergy Unknown Verified 07/05/19 08:13 Patient History Medical History Ganglion cyst of finger of right hand Surgical History (Updated 05/12/23 @ 17:12 by Aleja Hawk DO) S/P total hip arthroplasty History of cataract removal with insertion of prosthetic lens Social History household members: significant other Smoking Status: Former smoker alcohol intake: never Smoking Status: Former smoker Substance Use Type: does not use Exam Initial Vital Signs Initial Vital Signs: Vital Signs Pulse Rate 34 L 06/20/23 18:47 Respiratory Rate 18 06/20/23 18:47 Blood Pressure 170/72 H 06/20/23 18:47 Pulse Oximetry 97 06/20/23 18:47 Oxygen Delivery Method Room Air 06/20/23 18:47 Const General: cooperative and No acute distress HENMT Head: normocephalic and atraumatic Neck Other: Supple no jugular venous distention Resp Effort & Inspection: normal respiratory effort Auscultation: clear to auscultation bilaterally Cardio Other: Patient has a bigeminal rhythm. Underlying sinus. Rate is 60, palpable radial pulses with both bigeminal and sinus rhythms Skin Other: Warm and dry Neuro Other: Alert and oriented no focal deficits Course Orders Ordered: ED Orders 06/20/23 19:05 CXR [XR chest 1V] Stat CBC Auto Diff [Complete Blood Count AUTO DIFF] Stat CMP [Comprehensive Metabolic Panel] Stat Magnesium Stat Trop I [Troponin I] Stat Vital Signs Vital signs: Vital Signs - 8 hr 06/20/23 18:47 06/20/23 19:05 Pulse Rate 34 L 64 Respiratory Rate 18 25 H Blood Pressure 170/72 H 150/63 H Pulse Oximetry 97 96 Oxygen Delivery Method Room Air Room Air MDM - Arrhythmia/Palpitations Lab Data Lab results narrative: CBC with diff is unremarkable CMP is unremarkable, troponin is normal 06/20/23 18:53 06/20/23 18:53 Labs: Lab Results 06/20/23 Range/Units 18:53 WBC 7.1 (4.5-11.0) X10^3/uL RBC 4.59 (4.0-5.2) X10^6/uL Hgb 13.1 (12.0-16.0) g/dL Hct 40.4 (36-46) % MCV 88.0 (80-100) fL MCH 28.6 (26-34) PG MCHC 32.5 (30-36) % RDW 15.0 H (11.6-14.8) % Plt Count 315 (150-400) X10^3/uL Neut % (Auto) 57.0 (50-75) % Lymph % (Auto) 28.5 (25-40) % Parker % (Auto) 9.8 (3-14) % Eos % (Auto) 3.8 (2-4) % Baso % (Auto) 0.9 (0-2) % Neut # (Auto) 4000 (9910-5253) /uL Lymph # (Auto) 2000 (2606-5755) /uL Parker # (Auto) 700 (0-900) /uL Eos # (Auto) 300 (0-450) /uL Baso # (Auto) 100 (0-100) /uL Sodium 136 L (137-145) mmol/L Potassium 3.9 (3.4-5.1) mmol/L Chloride 103 (98-107) mmol/L Carbon Dioxide 26 (22-32) mmol/L BUN 14 (7-17) mg/dL Creatinine 0.84 (0.52-1.04) mg/dL Estimated GFR > 60 (>60) mL/min BUN/Creatinine Ratio 16.7 (6-22) Glucose 129 H (80-110) mg/dL Calcium 8.9 (8.4-10.2) mg/dL Magnesium 2.1 (1.6-2.3) mg/dL Total Bilirubin 0.4 (0.2-1.3) mg/dL AST 20 (14-36) IU/L ALT 14 (<35) IU/L Alkaline Phosphatase 96 (38-126) U/L Troponin I < 0.012 (0.01-0.034) ng/mL Total Protein 6.8 (6.3-8.2) g/dL Albumin 3.7 (3.5-5.0) g/dL Globulin 3.1 (1.7-4.1) g/dL Albumin/Globulin Ratio 1.2 (1.0-2.8) Imaging Data Chest x-ray: My Impression: Independent review of chest x-ray, no acute disease Radiologist's Impresson: Radiology report indicates no acute disease on portable chest ECG Data Interpretation: Patient has sinus rhythm with bigeminy. Rate is [address] segment changes MDM Narrative Medical decision making narrative: 82-year-old female who comes in because her fit bit reported bradycardia. Not significantly symptomatic. Here in the emergency department, she was in ventricular bigeminy with a low normal rate, he has not hypotensive and has not been symptomatic. Patient was on metoprolol and amiodarone. I am going to cut her metoprolol tartrate from 25 b.i.d. to 12.5 b.i.d.. Recommended she contact her precision lens centerer and edger as soon as possible for follow-up. Should return if she is having syncope chest pain or dyspnea. Discharge Plan Departure Patient Disposition: Home Clinical Impression: Bradycardia Activity Restrictions/Additional Instructions: Emergency department workup today is reassuring. Your heart rate here has been on the slow side but typically normal. I think given your reported slow heart rate at home without worrisome symptoms it is reasonable to try decreasing your metoprolol from 25 mg twice daily to 12.5 mg twice daily. Cut your pills in half. Contact your precision lens centerer and edger in the morning. If you are having lightheadedness nausea shortness of breath or other acute symptoms recheck in the emergency department. Prescriptions: No Action Eliquis 5 mg tablet 5 mg PO BID Qty: 60 2RF metoprolol tartrate 25 mg tablet 25 mg PO BID Qty: 60 2RF amiodarone 100 mg tablet 50 mg PO BID Qty: 90 0RF polyethylene glycol 3350 17 gram Powder In Packet 17 g PO DAILY PRN (Reason: Constipation) Qty: 14 0RF Referrals: Aleja Hawk DO [Primary Care Provider] - Stand Alone Forms: Patient Portal/API
[2023-06-20 19:20] LABS: Add Manual Diff / Slide Review NO; Basophils Absolute Auto 100 /uL (0-100); Basophils Percent Auto 0.9 % (0-2); Eosinophils Absolute Auto 300 /uL (0-450); Eosinophils Percent Auto 3.8 % (2-4); Hematocrit 40.4 % (36-46); Hemoglobin 13.1 g/dL (12.0-16.0); Lymphocytes Absolute Auto 2000 /uL (1100-4500); Lymphocytes Percent Auto 28.5 % (25-40); Mean Corpuscular HGB Conc 32.5 % (30-36); Mean Corpuscular Hemoglobin 28.6 PG (26-34); Monocytes Absolute Auto 700 /uL (0-900); Monocytes Percent Auto 9.8 % (3-14); Neutrophils Absolute Auto 4000 /uL (1500-7000); Platelet Count 315 X10^3/uL (150-400); Red Blood Cell Count 4.59 X10^6/uL (4.0-5.2); White Blood Cell Count 7.1 X10^3/uL (4.5-11.0)
[2023-06-20 19:28] LABS: Alanine Aminotransferase 14 IU/L (<35); Albumin 3.7 g/dL (3.5-5.0); Albumin Globulin Ratio 1.2 (1.0-2.8); Alkaline Phosphatase 96 U/L (38-126); Aspartate Aminotransferase 20 IU/L (14-36); BUN Creatinine Ratio 16.7 (6-22); Bilirubin Total 0.4 mg/dL (0.2-1.3); Blood Urea Nitrogen 14 mg/dL (7-17); Calcium 8.9 mg/dL (8.4-10.2); Carbon Dioxide 26 mmol/L (22-32); Chloride 103 mmol/L (98-107); Estimated Glomerular Filt Rate > 60 mL/min (>60); Globulin 3.1 g/dL (1.7-4.1); Glucose 129 mg/dL (80-110); HEMOLYSIS < 15 (0-50); Magnesium 2.1 mg/dL (1.6-2.3); Potassium 3.9 mmol/L (3.4-5.1); Sodium 136 mmol/L (137-145); Total Protein 6.8 g/dL (6.3-8.2)
[2023-06-20 19:39] LABS: Troponin I < 0.012 ng/mL (0.01-0.034)
== END 2023-06-20 20:41 | disposition home or self-care (01) ==
PROVIDERS: Emergency Provider Emergency Medicine; Family Provider Family Medicine; PCP Family Medicine
DX: R00.1 Bradycardia, unspecified (principal); Z79.01 Long term (current) use of anticoagulants; R03.0 Elevated blood-pressure reading, without diagnosis of hypertension; R00.8 Other abnormalities of heart beat
CPT/HCPCS: 36415; 71045; 80053; 83735; 84484; 85025; 93005; 93010; 99284

== ENCOUNTER → 2023-09-10 09:48 | Outpatient (CLI) | payer MEDICARE, SELFPAY ==
[2023-03-03 14:22] VITALS: BMI 34.2
--- NOTE | 2023-09-10 09:50 | DI.NM.S_ITS ---
PROCEDURE: NM MARIELY PERF SPECT R&S PHARM Rest and pharmacological stress myocardial perfusion SPECT with gated imaging and ejection fraction RADIOPHARMACEUTICAL: 10.7 mCi Tc-99m tetrafosmin IV at rest and 25 mCi Tc-99m tetrafosmin IV at peak effect of pharmacological stress. Wzy-xca-beceihdo was performed. INDICATIONS: Paroxysmal atrial fibrillation TECHNIQUE: Radiopharmaceutical was injected at peak stress test, and also at rest. SPECT images were obtained. SPECT myocardial perfusion images were displayed in short axis, horizontal long axis, and vertical long axis views. Gated images were reviewed using [employer] software. COMPARISON: None. CARDIAC STRESS: A pharmacologic stress test was performed under the supervision of an attending staff, using an infusion of lexiscan 0.4mg IV x1. Hemodynamic data: There is normal blood pressure and heart rate response to pharmacologic stress. Symptoms: The patient denied anginal chest pain. Aminophylline: none EKG: No diagnostic changes of ischemia; no ectopy. FINDINGS: Raw data: There is good myocardial uptake of radiotracer. No significant motion artifacts. Frui-cp-mhjsp ratio is 0.37 (normal is less than 0.38 for tetrafosmin tracer). Left ventricle function: Gated images demonstrate normal left ventricular wall thickening. No segmental wall motion abnormalities. No transient ischemic dilation; TID is 1.0 (normal less than 1.3). Left ventricle resting end diastolic volume is 123 mL. Left ventricle stress ejection fraction is 79%; normal range is above 45%. Myocardial perfusion: There is normal distribution of activity in the right and left ventricular myocardium. No fixed or reversible perfusion defects based on prone imaging. IMPRESSION: Low risk, normal pharmaceutical nuclear stress test. 1) No perfusion evidence of ischemia or infarction. 2) Normal left ventricular size, wall motion, and systolic function (EF post stress 79%). 3) No ST changes with lexiscan. 4) No angina during the study. 5) No prior nuclear stress test available for comparison. Dictated by: Graham Spence MD on 09/13/2023 at 13:00 Approved by: Graham Spence MD on 09/13/2023 at 13:03
== END ==
LOC: NUCM 09:50
PROVIDERS: Family Provider Family Medicine; PCP Family Medicine; Referring Provider Internal Medicine Cardiovascular Disease; Visit Provider Internal Medicine Cardiovascular Disease
DX: I48.0 Paroxysmal atrial fibrillation (principal)
CPT/HCPCS: 78452; 93017; A9502; J2785

== ENCOUNTER → 2023-09-20 10:57 | Outpatient (CLI) | payer MEDICARE, SELFPAY ==
[2023-03-03 14:22] VITALS: BMI 34.2
[2023-09-20 12:12] LABS: Add Manual Diff / Slide Review NO; Basophils Absolute Auto 100 /uL (0-100); Basophils Percent Auto 1.1 % (0-2); Eosinophils Absolute Auto 200 /uL (0-450); Eosinophils Percent Auto 3.2 % (2-4); Hematocrit 39.7 % (36-46); Hemoglobin 13.1 g/dL (12.0-16.0); Lymphocytes Absolute Auto 1500 /uL (1100-4500); Lymphocytes Percent Auto 23.8 % (25-40); Mean Corpuscular HGB Conc 33.1 % (30-36); Mean Corpuscular Hemoglobin 30.2 PG (26-34); Mean Corpuscular Volume 91.3 fL (80-100); Monocytes Absolute Auto 500 /uL (0-900); Neutrophils Absolute Auto 3900 /uL (1500-7000); Neutrophils Percent Auto 63.9 % (50-75); Platelet Count 310 X10^3/uL (150-400); Red Blood Cell Count 4.35 X10^6/uL (4.0-5.2); Red Cell Distribution Width 14.6 % (11.6-14.8); White Blood Cell Count 6.1 X10^3/uL (4.5-11.0)
[2023-09-20 12:37] LABS: High Sensitivity CRP - Cardiac 0.6 mg/L (1.0-3.0)
[2023-09-20 12:52] LABS: BUN Creatinine Ratio 19.7 (6-22); Blood Urea Nitrogen 15 mg/dL (7-17); Carbon Dioxide 29 mmol/L (22-32); Chloride 107 mmol/L (98-107); Cholesterol 172 mg/dL (140-199); Estimated Glomerular Filt Rate > 60 mL/min (>60); Glucose 88 mg/dL (80-110); HDL Cholesterol 70 mg/dL (40-60); HEMOLYSIS < 15 (0-50); LDL Cholesterol Calculated 86 mg/dL (<100); Potassium 4.1 mmol/L (3.4-5.1); Sodium 138 mmol/L (137-145); Triglycerides 81 mg/dL (35-150)
[2023-09-20 17:27] LABS: Vitamin D 25 Hydroxy (D3) 36.5 ng/mL (30.0-100.0)
== END ==
LOC: LAB 10:59
PROVIDERS: Family Provider Family Medicine; PCP Family Medicine; Referring Provider Internal Medicine Cardiovascular Disease; Visit Provider Internal Medicine Cardiovascular Disease
DX: Z00.00 Encounter for general adult medical examination without abnormal findings; E55.9 Vitamin D deficiency, unspecified; I48.0 Paroxysmal atrial fibrillation; D64.9 Anemia, unspecified; M81.0 Age-related osteoporosis without current pathological fracture; Z79.01 Long term (current) use of anticoagulants
CPT/HCPCS: 36415; 80048; 80061; 82306; 82523; 82570; 85025; 86140

== ENCOUNTER → 2023-10-20 16:09 | Outpatient (CLI) | payer MEDICARE, SELFPAY ==
[2023-03-03 14:22] VITALS: BMI 34.2
== END ==
PROVIDERS: Family Provider Family Medicine; PCP Family Medicine; Visit Provider Nurse Practitioner Family
DX: L03.115 Cellulitis of right lower limb (principal)
CPT/HCPCS: 87070; 87075; 87205

== ENCOUNTER → 2023-11-22 14:33 | Outpatient (CLI) | payer MEDICARE, SELFPAY ==
[2023-03-03 14:22] VITALS: BMI 34.2
--- NOTE | 2023-11-22 14:35 | EKG_ITS ---
[facility] [address] [place] [address] Test Date: 2023-11-22 Pat Name: Miracle Crystal Department: [facility] Room: Gender: Female Clinical Unit Coordinator: GARY : 1940 Requested By: Order Number: [id number] Reading MD: Norris Selby MD Measurements Intervals Jackson Rate: 77 P: 54 TX: 158 QRS: 12 QRSD: 76 T: 69 QT: 392 QTc: 443 Interpretive Statements Sinus rhythm with frequent premature ventricular complexes in a pattern of bigeminy Possible Left atrial enlargement Electronically Signed On 11-23-2023 7:29:07 PDT by Norris Selby MD
[2023-11-22 15:51] LABS: Add Manual Diff / Slide Review NO; Basophils Absolute Auto 0 /uL (0-100); Basophils Percent Auto 0.7 % (0-2); Eosinophils Absolute Auto 200 /uL (0-450); Eosinophils Percent Auto 2.9 % (2-4); Hematocrit 41.2 % (36-46); Hemoglobin 13.8 g/dL (12.0-16.0); Lymphocytes Absolute Auto 1700 /uL (1100-4500); Lymphocytes Percent Auto 23.6 % (25-40); Mean Corpuscular HGB Conc 33.5 % (30-36); Mean Corpuscular Hemoglobin 31.1 PG (26-34); Monocytes Absolute Auto 600 /uL (0-900); Monocytes Percent Auto 7.5 % (3-14); Neutrophils Absolute Auto 4800 /uL (1500-7000); Neutrophils Percent Auto 65.3 % (50-75); Platelet Count 317 X10^3/uL (150-400); Red Blood Cell Count 4.43 X10^6/uL (4.0-5.2); Red Cell Distribution Width 13.4 % (11.6-14.8); White Blood Cell Count 7.3 X10^3/uL (4.5-11.0)
[2023-11-22 16:13] LABS: Hemoglobin A1C% w Est Avg Glu 5.3 % (4.0-6.0)
[2023-11-22 16:27] LABS: Albumin 3.7 g/dL (3.5-5.0); BUN Creatinine Ratio 21.3 (6-22); Blood Urea Nitrogen 20 mg/dL (7-17); Calcium 8.8 mg/dL (8.4-10.2); Carbon Dioxide 28 mmol/L (22-32); Chloride 106 mmol/L (98-107); Estimated Glomerular Filt Rate > 60 mL/min (>60); Glucose 148 mg/dL (80-110); HEMOLYSIS < 15 (0-50); Potassium 3.9 mmol/L (3.4-5.1); Sodium 140 mmol/L (137-145)
[2023-11-22 16:36] LABS: Prealbumin 20.5 mg/dL (17.6-36.0)
[2023-11-22 16:38] LABS: Vitamin D 25 Hydroxy (D3) 33.5 ng/mL (30.0-100.0)
== END ==
PROVIDERS: Family Provider Family Medicine; PCP Family Medicine; Referring Provider Orthopaedic Surgery Adult Reconstructive Orthopaedic Surgery; Visit Provider Orthopaedic Surgery Adult Reconstructive Orthopaedic Surgery
DX: Z01.818 Encounter for other preprocedural examination (principal); R73.9 Hyperglycemia, unspecified; E55.9 Vitamin D deficiency, unspecified; Z01.812 Encounter for preprocedural laboratory examination; R77.0 Abnormality of albumin
CPT/HCPCS: 36415; 80048; 82040; 82306; 83036; 84134; 85025; 93005

== ENCOUNTER 2024-01-21 13:01 | Inpatient (IN) | payer MEDICARE, SELFPAY ==
[2023-03-03 14:22] VITALS: BMI 34.2
[2024-01-06 09:52] VITALS: BMI 32.7
[2024-01-19] VITALS (14 sets, daily range): BP systolic 118–164; BP diastolic 50–78; PULSE 56–109; RESP 14–20; TEMP 35.9–36.7; O2SAT 93–99; BMI 32.8
--- NOTE | 2024-01-19 06:00 | DI.RAD.S_ITS ---
PROCEDURE: XR KNEE RT 1TO2V INDICATIONS: tka TECHNIQUE: 2 views of the knee acquired. COMPARISON: [facility], CR, XR KNEE 4+ VIEWS RIGHT, 11/22/2023, 9:38. FINDINGS: Bones: Patient is status post knee joint arthroplasty. Hardware components are in expected positions. Visualized bony structures are intact. Soft tissues: Overlying postoperative changes are noted. IMPRESSION: Expected post-operative appearance of a knee arthroplasty. Approved by: Que Chan M.D. on 01/19/2024 at 20:14
--- NOTE | 2024-01-19 07:51 | SUR.OPER ---
Supine on padded OR bed. Pillow under head, arms secured on padded armboards <90 degree abduction. Safety belt across torso. Non-operative leg secured with tape over blanket over lower leg. Operative leg secured in DeMayo/Jerald/Nathe positioner. Foam padded brace at thigh of operative leg.
[2024-01-19] MEDS: MELOXICAM 7.5 MG TABLET 15 MG PO (08:02)
[2024-01-19] MEDS: LACTATED RINGERS 1,000 ML 42 ML IV ×2 (08:02→11:07)
[2024-01-19] MEDS: ACETAMINOPHEN 325 MG TABLET 975 MG PO (08:02)
--- NOTE | 2024-01-19 08:09 | PM.PREOP ---
Pre-operative Note Interval Note History & Physical reviewed/Exam performed by Physician: Yes Changes to H&P: No
[2024-01-19] MEDS: CEFAZOLIN 2 GM/100 ML PREMIX 100 ML IV ×3 (09:17→23:08)
[2024-01-19] MEDS: TRANEXAMIC ACID 1,000 MG VIAL 2000 MG INJ ×2 (09:17→10:59)
[2024-01-19] MEDS: ROPIVACAINE/EPI/CLONIDINE/KET 50 ML SYRINGE INJ (09:38)
--- NOTE | 2024-01-19 11:37 | P.OP_ITS ---
Operative Date/Time/Diagnoses Date of procedure: 01/19/24 Pre-op diagnosis: Right knee osteoarthritis Post-op diagnosis: same Procedure & Clinicians Procedure: Right total knee arthroplasty Same procedure as scheduled: Yes Surgeon: Juve Duran [employer] Specialist: Florecita Andres Anesthesia Type: General and Local Operative Notes Estimated Blood Loss (mL): 350 Procedure in detail: Right Gap-Balanced Sera Persona Medial-Congruent Primary Total Knee Arthrop lasty Implants: * Size 9 Cruciate Retaining Femoral Component * Size F Tibial Component with 14 x 30 stem extension * Size 10 Medial Congruent Polyethylene Insert * Unresurfaced Patella Procedure Summary: This 83-year-old female patient was familiar to me from having previously undergone a left total hip arthroplasty for femoral neck fracture last year. Postoperatively she had unstable atrial fibrillation which required an ICU stay temporarily. She has since recovered in his been doing well from a cardiac standpoint. Intraoperatively today I noted extremely poor bone quality, consistent with her prior femoral neck fracture. I had planned to use a stem extension to compensate for her poor bone quality. I used a +1 cut on the femur and initially used a +4 cut on the tibia which is my standard cut depth however I noted that she was unable to fully extend her knee with the smallest spacer block in place after that 4 mm resection and 60 lb of pressure through the gap exercise planner only opened the knee to 10 mm which indicated to me that there was still excessive tightness in extension so I resected additional tibial bone, frederick ntually going all the way to a +8 cut off the medial tibia. There was a large cyst in the central aspect of the tibia which was fortunately located near the stem of the base plate and additional cement was placed in that area to attempt to fill the bony void. Because she will be on Eliquis postoperatively an incisional wound VAC was utilized for her wound dressing Procedure in Detail: This patient was seen preoperatively and evaluated for knee pain which was refractory to numerous nonoperative treatment modalities. Their pain correlated with radiographic changes demonstrating significant degeneration in the knee joint. The risks and benefits of continued nonoperative management versus operative management were discussed at length and all of the patient?s questions were answered. Additional educational materials providing further details beyond our discussion in clinic were provided via a publicly available patient education video which included the incidence of medical complications associated with total knee arthroplasty, reasons for revision following total knee arthroplasty, and patient satisfaction rates following total knee arthroplasty. That video can be accessed at [email or web address] . With this understanding of the risks inherent to the procedure, the patient elected to move forward with operative management. Following preoperative optimization, the patient was scheduled for surgery. The patient was met in the preoperative holding area the day of the procedure and all questions were answered. The patient?s nares were swabbed with betadine in order to decolonize them from MRSA. Informed consent was signed and the right limb was marked with indelible ink.? The patient was brought back to the operating room where anesthesia was induced. The patient was transferred to the operating table and all bony prominences were padded. The operative site was prepped and draped in the usual sterile fashion. A second prep stick was utilized following drape placement. The incision was marked corresponding to the medial aspect of the tibial tubercle and the cooper la. Ioban was wrapped circumferentially around the knee. Prior to incision, tranexamic acid and cefazolin were administered. Templating images were displayed. A timeout procedure was performed verifying the patient?s identity, medical comorbidities, allergies, relevant medications, anesthesia type and the surgical plan. All present were in agreement. The assistance of a physician assistant librarian was required for positioning, room setup, soft tissue retraction and wound closure. Without this assistance, the procedure would have been significantly more challenging and time consuming.?? The tourniquet was inflated prior to incision. I made an anterior incision over the knee, dissected through the subcutaneous tissues and identified the lateral border of the VMO. Medial and lateral soft tissue flaps were developed. A medial parapatellar arthrotomy was performed ensuring that adequate capsular tissue would remain for closure at the conclusion of the procedure. The hip was brought into extension and the medial soft tissues were released off the joint line of the tibia. Tissue overlying the distal anterior femur was released to allow for later assessment for anterior notching but left in place. A portion of the retropatellar fat pad was excised while protecting the patellar tendon. The patella was everted. The patella was not resurfaced. Osteophytes were excised and a lateral facetectomy was performed. The patella was released from its everted position.?? I flexed the knee to 90 degrees and placed retractors to allow access to the notch. An opening reamer was used to gain access to the femoral canal and an intramedullary pamela was introduced into the canal. Diaphyseal fit was obtained in order to allow a distal femoral resection at 5 degrees relative to the anatomic axis, thereby aiming to achieve mechanical alignment of the eventual implant. A +1 resection was planned and assessed using an nicol wing. I then made the cut using a sagittal saw. This provided additional access to the femoral notch. The ACL and PCL were excised. Retractors were placed on the lateral and medial tibia. I hyperflexed the knee while externally rotating it to sublux the tibia anteriorly. I placed a PCL retractor posteriorly and used this to provide additional anterior subluxation. The remainder of the PCL root was released. An intramedullary reamer was used in the ACL footprint to provide access to the tibial canal. An extramedullary guide was positioned to allow a resection perpendicular to the anatomic and mechanical axes of the tibia, thereby aiming to achieve mechanical alignment of the eventual implant. A +4 resection off the medial tibia was planned and the tibial cutting jig was pinned in place. I evaluated the cut depth, varus-valgus alignment and slope of the planned tibial resection and deemed them satisfactory. I cut the tibia with a sagittal saw while using retractors to protect the MCL, patellar tendon, and posterolateral structures.? The knee was repositioned in extension and the Fuzion soft tissue balancing gauge was introduced. This demonstrated that there was equal tension in the medial and lateral compartments of the knee with the knee in full extension and no additional soft tissue releases were necessary. When 60 pounds of force was applied to the Fuzion device, the extension gap opened to 10 mm. Because of this excess tightness I performed additional bony resections until I had gotten to a +8 resection off of the tibia. The gaps remained appropriately balanced and 50 lb of pressure now opened the extension gap to 10 mm which I felt would be more likely to allow full extension after final component insertion. I moved the knee into 90 degrees of flexion, and the Fuzion device was recalibrated by removing a 9 mm larissa to allow assessment of the flexion gap. The Fuzion was placed perpendicular to the resected surface of the tibia and the resected surface of the distal femur. Fifty pounds of traction was applied to match the tension of the extension gap. This externally rotated the femur to for degrees. Pins were placed in the 10 mm holes. The measured resection guide was placed over the pins to allow sizing. Appropriate sizing was determined and a 4-in-1 block was placed. This was double checked using the Fuzion device to ensure that it would open to an equal distance as the extension gap when the same amount of force was applied. The Fuzion block was also used to assess flexion gap symmetry. An nicol wing was used to ensure there would be no anterior notching. Retractors were placed to protect the soft tissues during resection. Captured cuts were performed with a sagittal saw for the anterior and posterior femur as well as the corresponding chamfers.? Trial components were placed and the construct was assessed. Range of motion was assessed by ensuring the knee could achieve full extension and assessing maximum passive knee flexion by elevating the femur and allowing the heel to passively fall towards the buttock. Gap symmetry was assessed by stressing the medial and lateral compartments in both extension and flexion. Laxity was assessed in both extension and flexion and the polyethylene trial was adjusted with shims as necessary. Patellar tracking was assessed with knee flexion. Once satisfied with the construct, I moved forward with implant insertion. Lug holes were drilled in the femur and the tibia was prepped ensuring appropriate sizing and rotation relative to the tibial tubercle.?? The bony ends were irrigated and cement was prepared. Portions of the anterior chamfer cut were utilized as cement restrictors in the femur and tibia where intramedullar rods had been utilized. Cement was placed on the entirety of the undersurface of both the tibial and femoral components. Cement was placed onto the dry tibia and pressurized into the cancellous bone. I impacted the tibial component into place. Cement was removed. The tibia was reduced underneath the femur and placed cement onto the dry surface of the resected femur. I placed the femoral component as well as the intended polyethylene trial. Cement was removed from around the femur. I brought the knee into extension and manually pressurized the construct by pushing on the heel while the cement dried. The knee was bathed in a dilute mixture of betadine and peroxide. A mixture of Ropivacaine, Epinephrine, Clonidine and Toradol was infiltrated throughout the soft tissues into structures including the VMO, patellar tendon, quadriceps tendon, MCL and femoral periosteum. A low adductor canal block was also performed using this mixture unless one had been placed preoperatively by anesthesia. The knee was copiously irrigated with pulse lavage. Once cement had been allowed to dry the knee was again trialed. Range of motion was assessed by ensuring the knee could achieve full extension and assessing maximum passive knee flexion by elevating the femur and allowing the heel to passively fall towards the buttock. Gap symmetry was assessed by stressing the medial and lateral compartments in both extension and flexion. Laxity was assessed in both extension and flexion and the polyethylene trial was adjusted with shims as necessary. Patellar tracking was assessed with knee flexion. The tourniquet was let down and the polyethylene trial was removed. I inspected the knee inspected for excess cement and any residual bleeding. Once hemostasis was achieved I inserted the final polyethylene and ensured appropriate engagement of the dovetail locking mechanism.?? The arthrotomy was closed with absorbable interrupted suture ensuring that this extended to the top of the arthrotomy. This was backed up with running barbed suture throughout the arthrotomy. The skin was closed with 2-0 and 3-0 sutures. Surgical glue was applied and a soft dressing was placed.?The sponge, instrument and needle counts were reported as being correct at the end of the case.??No obvious complications occurred. The patient was transferred from the operating table back to a stretcher. The patient emerged from anesthesia without difficulty and was taken to the PACU in a stable condition.? Plan for aftercare: * Patient did have a run of atrial fibrillation towards the end of the surgery and I will likely have her remain in the hospital for at least 1 night for monitoring. I will have her on telemetry * Patient is prediabetic but has not been diagnosed as diabetic however she has had some high blood sugars so I will have her on sliding scale insulin while inpatient and will advise her to follow up with her primary care doctor regarding blood glucose management * Weightbearing as tolerated * Mobilization as soon as the patient has recovered from anesthesia. If physical therapists are unavailable at the time the patient is ready to ambulate, then nursing staff should help patient ambulate * Eliquis at baseline dosages for DVT prophylaxis to begin 24 hours postoperatively * Anai incisional wound VAC to remain in place until 1st clinic visit. The battery will after a week at which point the core can be removed it it can be used as a normal dressing until the follow up appointment * Multimodal pain regimen with no IV opioids ordered * Anticipate discharge home tomorrow * Follow up at [facility] in 2 weeks * Detailed postoperative instructions available at [email or web address]
[2024-01-19] MEDS: METOCLOPRAMIDE 10 MG/2 ML INJ IV (12:26)
[2024-01-19] MEDS: SCOPOLAMINE 1 PATCH TOP (14:09)
--- NOTE | 2024-01-19 15:43 | PM.PN.1 ---
Subjective Subjective Interval history: I came by to check on Miracle postoperatively. She is really nauseous. She does not have much pain in her surgical site but she reports feeling very nauseous. She is already gotten Reglan Zofran and a scopolamine patch. She has not had anything to drink or eat yet but does not feel like she would be able to if she tried. She has not had any actual vomiting but is lying in bed with her eyes closed and is quite uncomfortable. She is mentating at baseline and answering questions appropriately. We will continue with basal IV fluids for fluid resuscitation given her lack of oral intake currently and I anticipate that as her anesthesia medications wear off her nausea will improve. She will certainly remain in the hospital overnight. I have ordered telemetry for her given her atrial fibrillation run towards the end of her procedure and have requested an internal medicine consult as well. At this point I anticipate that she will mobilize tomorrow after she has had some more time to wake up and hopefully be able to discharge home tomorrow. The patient was very hopeful to be able to discharge today but I think that it would be more appropriate for her to remain here overnight. Exam Vital Signs (past 8 hours): - 01/19/24 08:28 01/19/24 11:37 01/19/24 11:42 Temperature 97.7 F 96.9 F L Pulse Rate 63 89 88 Respiratory Rate 17 20 18 Blood Pressure 146/67 H 129/72 137/69 Pulse Oximetry 98 93 93 Oxygen Delivery Method Room Air Room Air Nasal Cannula Oxygen Flow Rate 2 01/19/24 11:47 01/19/24 11:52 01/19/24 12:00 Temperature 96.7 F L Pulse Rate 90 83 65 Respiratory Rate 17 14 15 Blood Pressure 152/70 H 164/75 H 156/52 H Pulse Oximetry 96 96 96 Oxygen Delivery Method Nasal Cannula Nasal Cannula Nasal Cannula Oxygen Flow Rate 2 2 2 01/19/24 12:21 01/19/24 12:29 01/19/24 12:51 Temperature 97.5 F L Pulse Rate 72 86 81 Respiratory Rate 15 15 16 Blood Pressure 161/70 H 152/75 H 157/63 H Pulse Oximetry 96 95 97 Oxygen Delivery Method Room Air Room Air Oxygen Flow Rate 2 01/19/24 13:40 01/19/24 14:40 Temperature 97.5 F L 98.0 F Pulse Rate 68 60 Respiratory Rate 16 16 Blood Pressure 158/50 H 147/50 H Pulse Oximetry 97 99 Oxygen Delivery Method Oxygen Flow Rate Oxygen Delivery Method Room Air Oxygen Flow Rate 2 PFSH Medical History (Updated 01/06/24 @ 10:11 by Kristi Carlos RN) Easy bruisability Osteoarthritis Bigeminal rhythm Ganglion cyst of finger of right hand Surgical History (Updated 01/06/24 @ 10:11 by Kristi Carlos RN) H/O wrist surgery Hx of tonsillectomy H/O: hysterectomy (~1988) S/P total hip arthroplasty (02/2023) History of cataract removal with insertion of prosthetic lens Social History household members: friend(s) Smoking Status: Former smoker alcohol intake: current Assessment & Plan Time-Based Coding :: [TOTAL MINUTES] spent with patient and on the chart (including review of chart, obtaining history, exam, reviewing outside data, placing orders, documenting exam and treatment plan, and counseling patient) on [DATE].
[2024-01-19] MEDS: ONDANSETRON 4 MG/2 ML INJ IV (16:05)
[2024-01-19] MEDS: METOPROLOL ER 25 MG TABLET 12.5 MG PO (16:06)
[2024-01-19] MEDS: METOPROLOL TARTRATE 5 MG/5 ML INJ IV (16:45)
--- NOTE | 2024-01-19 16:50 | PT-IP ANOTE ---
PT eval received. EMR reviewed. checked with nurse and stated that pt is not ready for PT at this time. pt is currently tachycardic. will f/u.
[2024-01-19] MEDS: INSULIN LISPRO 100 UNIT/ML 3ML VIAL SUBCUT (17:14)
[2024-01-19 17:45] LABS: Hemoglobin A1C% w Est Avg Glu 5.5 % (4.0-6.0)
[2024-01-19 17:59] LABS: Magnesium 1.9 mg/dL (1.6-2.3)
[2024-01-19 18:00] LABS: Blood Urea Nitrogen 12 mg/dL (7-17); Calcium 8.2 mg/dL (8.4-10.2); Carbon Dioxide 21 mmol/L (22-32); Chloride 105 mmol/L (98-107); Estimated Glomerular Filt Rate > 60 mL/min (>60); Glucose 206 mg/dL (80-110); HEMOLYSIS 39 (0-50); Potassium 4.2 mmol/L (3.4-5.1); Sodium 136 mmol/L (137-145)
--- NOTE | 2024-01-19 18:39 | PM.CN ---
History of Present Illness Consult details Date Patient Seen: 01/19/24 Time Patient Seen: 18:39 Chief complaint: Right Total Knee Arthroplasty 01/18 Reason for consult: afib Requesting provider: Juve Duran Narrative: 83 F with PMH of afib with RVR. Admitted for R total knee arthroplasty, development of afib with RVR after last surgery. Patient has subsequently stopped taking amiodarone and metoprolol since her prior admission. Shortly after admission she developed RVR, was given metoprolol 12.5 mg, and metoprolol 5 mg IV with improvement in rate. She denies palpitations, chest pain, shortness of breath, nausea, vomiting. Meds Home Medications and Allergies Home Medications Medication Instructions Recorded Confirmed Type apixaban 5 mg tablet (Eliquis) 5 mg PO BID #60 tabs 03/22/23 01/19/24 Rx metoprolol succinate 25 mg 12.5 mg PO DAILY PRN Heart Rate >90 01/06/24 01/19/24 History tablet,extended release 24 hr Allergies Allergy/AdvReac Type Severity Reaction Status Date / Time nickel [NICKEL] Allergy Intermediate Rash Verified 01/19/24 07:57 oxycodone AdvReac Severe Drowsiness Verified 01/19/24 07:57 Review of Systems Review of Systems Narrative: All other systems reviewed with the patient and are negative unless otherwise stated. Exam Vital Signs (past 8 hours): - 01/19/24 11:37 01/19/24 11:42 01/19/24 11:47 Temperature 96.9 F L Pulse Rate 89 88 90 Respiratory Rate 20 18 17 Blood Pressure 129/72 137/69 152/70 H Pulse Oximetry 93 93 96 Oxygen Delivery Method Room Air Nasal Cannula Nasal Cannula Oxygen Flow Rate 2 2 01/19/24 11:52 01/19/24 12:00 01/19/24 12:21 Temperature 96.7 F L Pulse Rate 83 65 72 Respiratory Rate 14 15 15 Blood Pressure 164/75 H 156/52 H 161/70 H Pulse Oximetry 96 96 96 Oxygen Delivery Method Nasal Cannula Nasal Cannula Room Air Oxygen Flow Rate 2 2 01/19/24 12:29 01/19/24 12:51 01/19/24 13:40 Temperature 97.5 F L 97.5 F L Pulse Rate 86 81 68 Respiratory Rate 15 16 16 Blood Pressure 152/75 H 157/63 H 158/50 H Pulse Oximetry 95 97 97 Oxygen Delivery Method Room Air Oxygen Flow Rate 2 01/19/24 14:40 01/19/24 15:20 01/19/24 16:36 Temperature 98.0 F 97.9 F Pulse Rate 60 79 109 H Respiratory Rate 16 16 Blood Pressure 147/50 H 142/78 H 118/77 Pulse Oximetry 99 99 Oxygen Delivery Method Oxygen Flow Rate 2 Oxygen Delivery Method Room Air Oxygen Flow Rate 2 Narrative Exam Narrative: General:? Patient is well developed and well nourished, in no distress at this time. HEENT:? Normocephalic, atraumatic, extraocular muscles intact, oral pharynx is clear and mucous membranes are moist. Neck: supple and symmetric, trachea is midline, no cervical adenopathy. Negative for JVD Chest:? Normal AP diameter and contour without kyphoscoliosis, no tachypnea, equal chest rise bilaterally. Lungs:? CTA b/l no wheezing rhonchi or rales. Cardio:?tachycardic, irregularly irregular no m/r/g Abdomen: S NT ND. Extremities: bilateral edema L >R trace to 1+ Neuro:? Alert and orientated x3,? sensation to touch intact in all extremities, no gross deficits noted of cranial nerves. Psych:? Patient has a well-kept appearance, appropriate affect, mental status attitude thought context and judgment are appropriate for age. Objective Labs 01/19/24 17:00 Labs: Laboratory Results - last 24 hr 01/19/24 01/19/24 15:14 17:00 Sodium 136 L Potassium 4.2 Chloride 105 Carbon Dioxide 21 L BUN 12 Creatinine 0.63 Estimated GFR > 60 BUN/Creatinine Ratio 19.0 Glucose 206 H Hemoglobin A1c 5.5 Calcium 8.2 L Magnesium 1.9 PFSH Medical History Easy bruisability Osteoarthritis Bigeminal rhythm Ganglion cyst of finger of right hand Surgical History H/O wrist surgery Hx of tonsillectomy H/O: hysterectomy (~1988) S/P total hip arthroplasty (02/2023) History of cataract removal with insertion of prosthetic lens Social History household members: friend(s) Tobacco & Substance Use Smoking Status: Former smoker alcohol intake: current Assessment & Plan Assessment & Plan narrative: 1. Paroxysmal atrial fibrillation with rapid ventricular response - given 12.5 mg PO metoprolol succinate, continue metoprolol 25 mg BID for now. Takes prn at home. Was previously on amiodarone during prior admission for hip fx. Will try to avoid infusion and keep out of ICU given patient is asymptomatic and improving rate with oral medications currently. - continue apixaban 5 mg BID as appropriate by primary service, ordered to start tomorrow. - BMP and electrolytes ordered and reviewed, no need for repletion with K 4.2 and Mg 1.9. - Glucose 206 on BMP, repeat AM BMP. A1c 5.5% - continue tele. No chest pain. Code: Full, surrogate is patient's friend Gretta DVT: on apixaban I have utilized all available immediate resources to obtain, update, or review the patient's current medications. Dispo: patient admitted under inpatient status. Unclear if will be able to discharge home or possible SNF, will have PT/OT evaluations. Additional history obtained via discussions with the ER provider. These discussions contributed to the creation of the above assessment and plan. I have reviewed patient's presenting documentation, labs, and imaging personally. Time-Based Coding :: [TOTAL MINUTES] spent with patient and on the chart (including review of chart, obtaining history, exam, reviewing outside data, placing orders, documenting exam and treatment plan, and counseling patient) on [DATE].
--- NOTE | 2024-01-19 19:24 | PC.NURSE ---
Returned from OR, denies pain. Had been in and out of a fib during OR. Shortly after patient returned to floor she went into a-fib with an RVR. She was given her prn oral metoprolol dose. She reports that usually works for her. Bp 142/100, pulse 138, RA sat was 100%. She had no effect from the oral metoprolol. Dr. Bauman was notified and hospitalist was consulted. No ecg for now. Pt denies any pain the entire time she has been in A-fib w/rvr. Sats are 98 to 100% on room air. She has a purewick on and is voiding. Did have some nausea. This resolved with medication. MD placed order for metoprolol IV and same was given. Hr is 100's for the most part but remains in a-fib. Md is aware and her rate is acceptable at this time. Remained pain free and c/p free the entire time.
[2024-01-19] MEDS: IBUPROFEN 600 MG TABLET PO (20:34)
[2024-01-19] MEDS: DOCUSATE 100 MG CAPSULE PO (20:34)
[2024-01-19] MEDS: ACETAMINOPHEN 325 MG TABLET 650 MG PO (20:35)
[2024-01-20 04:46] VITALS: BP 119/31; PULSE 57; RESP 16; TEMP 35.7; O2SAT 93
[2024-01-20 05:51] LABS: Hematocrit 35.2 % (36-46); Hemoglobin 11.6 g/dL (12.0-16.0)
--- NOTE | 2024-01-20 07:20 | PM.PNPO.1 ---
Subjective Subjective Date Patient Seen: 01/20/24 Time Patient Seen: 07:20 Interval history: Patient states that she is feeling well after surgery. She had been utilizing the ice machine for pain relief. Yet worked with physical therapy. She did have episode of tachycardia last night and is currently under medicine observation for cardiac concern. Pain control with oral medications. Exam Vital Signs (past 8 hours): - 01/20/24 04:46 Temperature 96.3 F L Pulse Rate 57 L Respiratory Rate 16 Blood Pressure 119/31 L Pulse Oximetry 93 Oxygen Delivery Method Room Air Oxygen Flow Rate 0 Narrative Exam Narrative: Patient found comfortably resting in bed with ice machine on right knee. Dressing is clean dry and intact. Painful for patient to fully extend the knee. Sensation intact to light touch throughout the lower extremity bilaterally. No increased pain with compression of posterior calf or thigh. Able to actively dorsiflex and plantar flex against resistance of the ankle. Objective Labs 01/20/24 04:40 01/19/24 17:00 Labs: Laboratory Results - last 24 hr 01/19/24 01/19/24 01/20/24 15:14 17:00 04:40 Hgb 11.6 L Hct 35.2 L Sodium 136 L Potassium 4.2 Chloride 105 Carbon Dioxide 21 L BUN 12 Creatinine 0.63 Estimated GFR > 60 BUN/Creatinine Ratio 19.0 Glucose 206 H Hemoglobin A1c 5.5 Calcium 8.2 L Magnesium 1.9 PFSH Medical History Easy bruisability Osteoarthritis Bigeminal rhythm Ganglion cyst of finger of right hand Surgical History H/O wrist surgery Hx of tonsillectomy H/O: hysterectomy (~1988) S/P total hip arthroplasty (02/2023) History of cataract removal with insertion of prosthetic lens Social History household members: friend(s) Smoking Status: Former smoker alcohol intake: current Assessment & Plan Post-op Postoperative Procedures: Procedures Operation Date: 01/19/24 08:45 Actual Procedure Side Surgeon p Total Knee Arthroplasty Right Juve Duran MD Postoperative day: 1 Postoperative plan narrative: We will keep patient 1 more night for observation to make sure all cardiac issues are resolved. He appreciate medicine's consultation in this regard. Multimodal pain control. Work with physical therapy for ambulation. Continue with Eliquis for DVT prophylaxis. Re-evaluate for discharge to home tomorrow once medically stable. Time Spent With Patient Time with patient: less than 15 minutes Quality VTE Deep Vein Thrombosis/Pulmonary Embolism Present on Admission: No
[2024-01-20] MEDS: ACETAMINOPHEN 325 MG TABLET 650 MG PO ×2 (07:57→13:48)
[2024-01-20] MEDS: DOCUSATE 100 MG CAPSULE PO (08:27)
[2024-01-20] MEDS: APIXABAN 5 MG TABLET PO ×2 (08:27→20:57)
[2024-01-20 08:46] VITALS: PULSE 58
--- NOTE | 2024-01-20 08:46 | PM.PN.1 ---
Subjective Subjective Interval history: Interval summary: 83 F with PMH of afib with RVR. Admitted for R total knee arthroplasty, development of afib with RVR after last surgery. Patient has subsequently stopped taking amiodarone and metoprolol since her prior admission. Shortly after admission she developed RVR, was given metoprolol 12.5 mg, and metoprolol 5 mg IV with improvement in rate. She denies palpitations, chest pain, shortness of breath, nausea, vomiting. S: She was doing better today. She denies any feelings of being lightheaded. She stopped her oral metoprolol several months ago due to bradycardia after discussing with her communications tech, Dr. Spence. Blood pressure low this morning, receiving IV fluids. Improved. Exam Vital Signs (past 8 hours): - 01/20/24 04:46 Temperature 96.3 F L Pulse Rate 57 L Respiratory Rate 16 Blood Pressure 119/31 L Pulse Oximetry 93 Oxygen Delivery Method Room Air Oxygen Flow Rate 0 Narrative Exam Narrative: NAD, alert and oriented. Fluent speech. Lungs are clear, normal rate and effort. Heart is regular, no murmur gallop or rub. Abdomen is soft, non distended. Extremities are with 1+ edema. Objective Labs 01/20/24 04:40 01/19/24 17:00 Labs: Laboratory Results - last 24 hr 01/19/24 01/19/24 01/20/24 15:14 17:00 04:40 Hgb 11.6 L Hct 35.2 L Sodium 136 L Potassium 4.2 Chloride 105 Carbon Dioxide 21 L BUN 12 Creatinine 0.63 Estimated GFR > 60 BUN/Creatinine Ratio 19.0 Glucose 206 H Hemoglobin A1c 5.5 Calcium 8.2 L Magnesium 1.9 PFSH Medical History Easy bruisability Osteoarthritis Bigeminal rhythm Ganglion cyst of finger of right hand Surgical History H/O wrist surgery Hx of tonsillectomy H/O: hysterectomy (~1988) S/P total hip arthroplasty (02/2023) History of cataract removal with insertion of prosthetic lens Social History household members: friend(s) Smoking Status: Former smoker alcohol intake: current Assessment & Plan Assessment & Plan narrative: 1. Paroxysmal atrial fibrillation with rapid ventricular response. New and resolved. In sinus rhythm now. - given 12.5 mg PO metoprolol succinate. - continue apixaban 5 mg BID as appropriate by primary service, ordered to start tomorrow. 2. Hypotension, new and improved. 3. Status post right total knee arthroplasty on January 18. PLAN: Code: Full, surrogate is patient's friend Gretta DVT: on apixaban Time-Based Coding :: 20 min] spent with patient and on the chart (including review of chart, obtaining history, exam, reviewing outside data, placing orders, documenting exam and treatment plan, and counseling patient) on 01/19. Quality VTE Deep Vein Thrombosis/Pulmonary Embolism Present on Admission: No
[2024-01-20] MEDS: IBUPROFEN 600 MG TABLET PO ×3 (09:39→20:57)
--- NOTE | 2024-01-20 10:52 | PT.IIE ---
Current Diagnoses Unilateral primary osteoarthritis, right knee (01/19/24) Surgery Performed Operation Date: 01/19/24 08:45 Actual Procedures p Total Knee Arthroplasty(Right) - Juve Duran MD Surgical History (Last Reviewed 01/20/24 @ 08:47 by Cheikh Trevizo MD) H/O wrist surgery H/O: hysterectomy (~1988) History of cataract removal with insertion of prosthetic lens Hx of tonsillectomy S/P total hip arthroplasty (02/2023) Medical History (Last Reviewed 01/20/24 @ 08:47 by Cheikh Trevizo MD) Bigeminal rhythm Easy bruisability Ganglion cyst of finger of right hand Osteoarthritis Physical Therapy Inpatient Evaluation/Re-Eval M1 PT/OT-IP Prior Functional Status Start: 01/20/24 10:15 Freq: NEEDED Status: Active Protocol: Document 01/20/24 10:18 MB (Rec: 01/20/24 10:52 MB [id number]) Medical Review Prior Functional Status Medical History Reviewed Yes Diet/Fluid Consistency Regular Communication WNLs Mobility and Gait I, RW use at night d/t right knee pain Activities of Daily Living and IADL's I, drove, lives with 91 y/o roommate who does not drive Social History Household Members friend(s) Living Arrangements House Number of Floors (Floors) One Floor Number of Stairs To Enter/Railing? No steps to enter, sounds like possible platform step/ threshold Home Environment Standard Height Toilet,Tub/ Shower Home Equipment Front Wheel Walker,Bedside Commode,Tub Transfer Bench Employment Status Retired Additional Social History Comment Cane, uses BSC over toilet for UE support M2 PT-IP Current Condition Start: 01/20/24 10:15 Freq: NEEDED Status: Active Protocol: Document 01/20/24 10:18 MB (Rec: 01/20/24 10:52 MB [id number]) Physical Therapy Current Condition Current Condition Evaluation Date 01/20/24 Treatment Diagnosis Right TKR M3 PT-IP Subjective Start: 01/20/24 10:15 Freq: NEEDED Status: Active Protocol: Document 01/20/24 10:18 MB (Rec: 01/20/24 10:52 MB [id number]) Subjective Physical Therapy Visit Type Type Initial Evaluation Visit Start Time 10:18 Visit Stop Time 10:33 Number of GUN STRIPER Visits 0 Physical Therapy Visit Comments Patient Comments Pt is agreeable to PT and does not have pain at rest. Therapy Pain Assessment Pain When Pain Assessed During Mobility Pain Present Pain Present Pain Reported Location Right knee and leg Intensity 5 Scale Used MengHaydee (Faces) M4 PT-IP Mobility and Gait Start: 01/20/24 10:15 Freq: NEEDED Status: Active Protocol: Document 01/20/24 10:18 MB (Rec: 01/20/24 10:52 MB [id number]) PT-Bed Mobility Assessment Rolling Type of Rolling Roll to Left Level of Assist Contact Guard Assistance Supine to Sit Supine to Sit Contact Guard Assistance,1 Person Assistance,Head of Bed Elevated,Bedrails Scooting Scooting to Edge of Bed Contact Guard Assistance PT-Transfer Assessment Sit to and From Stand Sit to and from Stand Minimal Assistance Equipment Transfer Assistive Device Gait Belt,Front Wheeled Walker Orthotic/Prosthetic Devices or Brace: No Transfers Transfer Destination Chair Transfer Technique Stepping Transfer Ability Level of Assist Minimal Assistance,1 Person Assistance,Use of Upper Extremities Comments Mobility Comments Pt reports knife-like pain anterior right knee with WB and attempted standing. STS efforts x2 and cues to push up from the bed. Pt does not rate pain when asked and so FACES scale used. Pt is unable to straighten right knee fully or place heel on floor despite cues d/t pain. Pt keeps right knee bent and she has decreased WB through the right leg. Gait Assessment Gait Gait Assistance Required: Minimum Assistance Distance (Feet) 3 Assistive Devices Assistive Device Gait Belt,Front Wheeled Walker Orthotic/Prosthetic Devices or Brace: No Gait Deviations General Gait Pattern Antalgic,Decreased Stride Length,Decreased Feet Clearance,Flexed Trunk,Step-to Gait,Wide Based Gait Factors Limiting Gait Function Factors Limiting Gait Function Decreased Activity Tolerance, Decreased Strength,Difficulty Following Directions,Limited Range of Motion,Pain,Poor Balance Comments Gait Comments Pt self-limits gait distance, step-length, WB and heel strike through right foot and reports increased pain in right knee, unable to progress gait further this a.m. PT-Balance Assessment Sitting Balance and Reactions Static Sitting Balance Ability Good Dynamic Sitting Balance Ability Good Standing Balance and Reactions Static Standing Balance Ability Fair Dynamic Standing Balance Ability Fair Device Used RW M5 PT-IP Objective Assessments Start: 01/20/24 10:15 Freq: NEEDED Status: Active Protocol: Document 01/20/24 10:18 MB (Rec: 01/20/24 10:52 MB [id number]) Orientation Orientation/Cognition Level of Alertness Alert Orientation Name,Age,Birthday,Month,Date, Year,Day of Week,Place, Situation Language Function Ability No Deficits Noted Safety Awareness Decreased Safety Awareness Memory Description No Deficits Noted Gross Range of Motion Upper Extremity ROM Assessment Within Functional Limits Lower Extremity ROM Assessment Right Impaired Impairments Functionally observed right knee movement from 15-60 deg this a.m. Strength Upper Extremity Strength Assessment Within Functional Limits Lower Extremity Strength Assessment Right Impaired Comments Strength Comments LLE functional, pt does not tolerate MMT any LE joint Coordination Assessment Gross Coordination Gross Coordination Impaired Sensation Assessment Comments Sensation Comments Denies paresthesias Muscle Tone Muscle Tone WNL Yes M6 PT-IP Treatment Start: 01/20/24 10:15 Freq: NEEDED Status: Active Protocol: Document 01/20/24 10:18 MB (Rec: 01/20/24 10:52 MB [id number]) Physical Therapy Treatment Exercises Exercises Ankle Pumps,Gluteal Sets,Quad Sets,Heel Slides Education Education Provided Weight Bearing Status,Post-Op Packet,Safety Other Treatments Other Treatment Performed Ed pt in use of incentive spirometer M7 PT-IP Assessment and Plan Start: 01/20/24 10:15 Freq: NEEDED Status: Active Protocol: Document 01/20/24 10:18 MB (Rec: 01/20/24 10:52 MB [id number]) PT Summary Assessment and Plan Potential Rehabilitation Potential Good Status of Condition at Evaluation Evolving Summary Impairments Pain,ROM,Strength,Balance,Bed Mobility,Transfers,Gait, Activity Tolerance Progress Towards Goals Slow Progress due to Pain Assessment Summary Pt is an 83 y/o female who states that she has no pain in bed and she is using cryocuff on right LE post-op right TKA upon PT arrival. Pt states she does not want to take any opioids and is agreeable to PT . Once attempting STS, WB and gait, pt reports high pain and limits WB through right foot and straightening right leg. She takes a few antalgic steps to chair with RW with min A. Pt states she has elderly roommate, DIL in town and OPPT set-up. Goals Bed Mobility Goal Independent Transfer Goal Independent,Front Wheeled Walker Gait Goal Independent,Front Wheel Walker Gait Distance 75 Other Goals Pt will ascend and descend 1 platform step with RW and no more than CGA to allow safe home entrance. Days to Meet Goals 2 Frequency of Treatment Frequency Of Treatment Twice a Day Treatment Plan Physical Therapy Treatment Plan Bed Mobility Training,Transfer Training,Gait Training, Therapeutic Exercise,Balance Retraining,Post Op Education, Discharge Planning,Hot or Cold Pack,Neuromuscular Re-ed, Coordination Retraining,Manual Therapy Weight Bearing Status Weight Bearing Status Weight Bear as Tolerated Recommendations To Nursing Amount of Assist Needed 1 Person Assist Discharge Recommendations PT Discharge Recommendations Home with Assistance, Outpatient PT Transportation Needs at Discharge Private Vehicle
--- NOTE | 2024-01-20 11:03 | DIET.CONS ---
Dietary Consultation Note Admission Date: Assessment: 83 y F admitted for total knee arthroplasty. Nutrition consulted for sacral wound. Confirmed w/ RN there is no sacral wound on this pt. Met w/ pt at bedside. Reports hx of osteoporosis, taking Rx vit D and K, eating more calcium sources such as cheese sticks. Reviewed calcium sources. A1C% 5.5% on 01/19/24. No recent weight loss. Pt wanting to start intentional weight loss plan. F/u PRN. Ht: 177.8 cm Wt: 103.873 kg BMI: 32.8 UBW: 104.78 kg on 10/20/23 Last BM: 01/19/24 (01/19/24 07:27) MNA: 14 Aquilino Score: 21 Diet: 01/19/24 Dinner Carbohydrate Consistent Diet Diet Modifications: Carbohydrate level: Medium (3 CHO) Reflex DM orders: No Food Texture: Level 7 - Regular Liquid Consistency: Level 0 - Thin Nutrition Percent Meal Consumed 75% 01/20/24 10:05 Percent Meal Consumed refused dinner 01/19/24 18:56 Labs: Hgb 11.6 g/dL (12.0-16.0) L 01/20/24 04:40 Hct 35.2 % (36-46) L 01/20/24 04:40 Creatinine 0.63 mg/dL (0.52-1.04) 01/19/24 17:00 Hemoglobin A1c 5.5 % (4.0-6.0) 01/19/24 15:14 Electronically Signed by: Ellen Miles 01/20/24 11:03 Clinical Dietitian [address] [address]
[2024-01-20 12:00] VITALS: BP 107/37; PULSE 57; RESP 17; TEMP 36.5; O2SAT 98
--- NOTE | 2024-01-20 12:58 | PM.PN.1 ---
Subjective Subjective Interval history: HPI: Miracle underwent a right total knee arthroplasty performed by myself. Postoperatively, she experienced atrial fibrillation and nausea. She had similar issues of atrial fibrillation after a prior hip surgery also performed by myself. Miracle describes a very sharp pain in her knee when putting weight on the leg, likening it to someone sticking a knife in the middle of her knee. PERTINENT PMH: - Atrial fibrillation - Osteoporosis PRIOR HIP/KNEE PROCEDURES: - Right total knee arthroplasty performed by myself - Prior hip surgery performed by myself PHYSICAL EXAM Knee Exam: - Examination: Dressing is nice and dry. - Neurologic: Intact dorsiflexion and plantarflexion. ASSESSMENT: Postoperative day 1 status post right total knee arthroplasty PLAN: Miracle is experiencing atrial fibrillation and nausea postoperatively. Given her history of atrial fibrillation after her previous hip surgery, I have consulted internal medicine to manage her cardiac issues. She will remain under observation to ensure her heart rate stabilizes and the nausea resolves. We will monitor her closely and adjust her treatment plan as necessary. - Consult internal medicine for atrial fibrillation management - Monitor nausea and provide supportive care - Encourage mobilization and physical therapy to improve postoperative outcomes - Consider osteoporosis medication like a bisphosphonate (e.g., Fosamax) due to her poor bone quality Exam Vital Signs (past 8 hours): - 01/20/24 08:46 Pulse Rate 58 L Oxygen Delivery Method Room Air Oxygen Flow Rate 0 Objective Labs 01/20/24 04:40 01/19/24 17:00 Labs: Laboratory Results - last 24 hr 01/19/24 01/19/24 01/20/24 15:14 17:00 04:40 Hgb 11.6 L Hct 35.2 L Sodium 136 L Potassium 4.2 Chloride 105 Carbon Dioxide 21 L BUN 12 Creatinine 0.63 Estimated GFR > 60 BUN/Creatinine Ratio 19.0 Glucose 206 H Hemoglobin A1c 5.5 Calcium 8.2 L Magnesium 1.9 PFSH Medical History Easy bruisability Osteoarthritis Bigeminal rhythm Ganglion cyst of finger of right hand Surgical History H/O wrist surgery Hx of tonsillectomy H/O: hysterectomy (~1988) S/P total hip arthroplasty (02/2023) History of cataract removal with insertion of prosthetic lens Social History household members: friend(s) Smoking Status: Former smoker alcohol intake: current Assessment & Plan Time-Based Coding :: [TOTAL MINUTES] spent with patient and on the chart (including review of chart, obtaining history, exam, reviewing outside data, placing orders, documenting exam and treatment plan, and counseling patient) on [DATE]. Quality VTE Deep Vein Thrombosis/Pulmonary Embolism Present on Admission: No
--- NOTE | 2024-01-20 13:18 | PT.IPTN ---
Current Diagnoses Unilateral primary osteoarthritis, right knee (01/19/24) Surgery Performed Operation Date: 01/19/24 08:45 Actual Procedures p Total Knee Arthroplasty(Right) - Juve Duran MD Physical Therapy Treatment Note M2 PT-IP Current Condition Start: 01/20/24 10:15 Freq: NEEDED Status: Active Protocol: Document 01/20/24 10:18 MB (Rec: 01/20/24 10:52 MB [id number]) Physical Therapy Current Condition Current Condition Evaluation Date 01/20/24 Treatment Diagnosis Right TKR M3 PT-IP Subjective Start: 01/20/24 10:15 Freq: NEEDED Status: Active Protocol: Document 01/20/24 14:09 TS (Rec: 01/20/24 14:17 TS [id number]) Subjective Physical Therapy Visit Type Type Treatment Note Visit Start Time 13:18 Visit Stop Time 13:42 Notes Pt reports not steps into house Number of BIOINFORMATICS ANALYST Visits 1 Physical Therapy Visit Comments Patient Comments Pt found resting in chair, is agreeable to PT. Therapy Pain Assessment Pain When Pain Assessed During Mobility Pain Present Pain Present Pain Reported M4 PT-IP Mobility and Gait Start: 01/20/24 10:15 Freq: NEEDED Status: Active Protocol: Document 01/20/24 14:09 TS (Rec: 01/20/24 14:17 TS [id number]) PT-Bed Mobility Assessment Supine to Sit Supine to Sit Standby Assistance,Head of Bed Elevated,Bedrails Sit to Supine Sit to Supine Standby Assistance Scooting Scooting to Edge of Bed Standby Assistance PT-Transfer Assessment Sit to and From Stand Sit to and from Stand Standby Assistance,Minimal Assistance Equipment Transfer Assistive Device Gait Belt,Front Wheeled Walker Orthotic/Prosthetic Devices or Brace: No Comments Mobility Comments STS from chair Christopher with use of FWW. She ambulated ~30' with FWW SBA. She performed bed mobility SBA with UE's assisting RLE into/out of bed. STS from bed SBA with FWW. She ambulated to chair. Pt was left in the chair, all needs met. Gait Assessment Gait Gait Assistance Required: Standby Assistance Distance (Feet) 30 Assistive Devices Assistive Device Gait Belt,Front Wheeled Walker Gait Deviations General Gait Pattern Antalgic,Decreased Stride Length,Decreased Feet Clearance,Flexed Trunk,Step-to Gait,Wide Based Gait Factors Limiting Gait Function Factors Limiting Gait Function Decreased Activity Tolerance, Decreased Strength,Difficulty Following Directions,Limited Range of Motion,Pain,Poor Balance PT-Balance Assessment Sitting Balance and Reactions Static Sitting Balance Ability Good Dynamic Sitting Balance Ability Good Standing Balance and Reactions Static Standing Balance Ability Fair Dynamic Standing Balance Ability Fair Device Used RW M5 PT-IP Objective Assessments Start: 01/20/24 10:15 Freq: NEEDED Status: Active Protocol: Document 01/20/24 10:18 MB (Rec: 01/20/24 10:52 MB [id number]) Orientation Orientation/Cognition Level of Alertness Alert Orientation Name,Age,Birthday,Month,Date, Year,Day of Week,Place, Situation Language Function Ability No Deficits Noted Safety Awareness Decreased Safety Awareness Memory Description No Deficits Noted Gross Range of Motion Upper Extremity ROM Assessment Within Functional Limits Lower Extremity ROM Assessment Right Impaired Impairments Functionally observed right knee movement from 15-60 deg this a.m. Strength Upper Extremity Strength Assessment Within Functional Limits Lower Extremity Strength Assessment Right Impaired Comments Strength Comments LLE functional, pt does not tolerate MMT any LE joint Coordination Assessment Gross Coordination Gross Coordination Impaired Sensation Assessment Comments Sensation Comments Denies paresthesias Muscle Tone Muscle Tone WNL Yes M6 PT-IP Treatment Start: 01/20/24 10:15 Freq: NEEDED Status: Active Protocol: Document 01/20/24 14:09 TS (Rec: 01/20/24 14:17 [id number]) Physical Therapy Treatment Education Education Provided Weight Bearing Status,Post-Op Packet,Safety M7 PT-IP Assessment and Plan Start: 01/20/24 10:15 Freq: NEEDED Status: Active Protocol: Document 01/20/24 14:09 TS (Rec: 01/20/24 14:17 [id number]) PT Summary Assessment and Plan Potential Rehabilitation Potential Good Summary Impairments Pain,ROM,Strength,Balance,Bed Mobility,Transfers,Gait, Activity Tolerance Progress Towards Goals Progressing Toward Goals Assessment Summary Pt is making progress with her mobility. She is Christopher x1 for STS from chair and SBA from higher surface of the bed. She progressed her gait to ~30' SBA with FWW. She performs all bed mobility SBA with UE's assisting RLE. PT is recommending home with assist and outpatient PT. Goals Bed Mobility Goal Independent Transfer Goal Independent,Front Wheeled Walker Gait Goal Independent,Front Wheel Walker Gait Distance 75 Other Goals Pt will ascend and descend 1 platform step with RW and no more than CGA to allow safe home entrance. Days to Meet Goals 2 Frequency of Treatment Frequency Of Treatment Twice a Day Treatment Plan Physical Therapy Treatment Plan Bed Mobility Training,Transfer Training,Gait Training, Therapeutic Exercise,Balance Retraining,Post Op Education, Discharge Planning,Hot or Cold Pack,Neuromuscular Re-ed, Coordination Retraining,Manual Therapy Weight Bearing Status Weight Bearing Status Weight Bear as Tolerated Recommendations To Nursing Amount of Assist Needed 1 Person Assist Discharge Recommendations PT Discharge Recommendations Home with Assistance, Outpatient PT Transportation Needs at Discharge Private Vehicle
--- NOTE | 2024-01-20 13:34 | CM.DANOTE ---
Initial DCP Assessment Note Pt is a 83 yo female, resident of [facility], now POD#1 from right TKA PCP: Aleja Hawk Payer: HILDA DUFFY Reviewed chart, met with patient, introduced self and role. Patient lives independently with 90 yo roommate/friend Gretta who manages independently also, does not drive. Patient has planned for return home with her roommate to assist with meal prep and physical assist as needed, DIL to drive when needed. Patient has arranged for outpatient PT. Therapy has cleared pt for return home w/family to assist. No barriers identified at this time to patient's safe discharge home w/family to assist; close outpatient f/u recommended. CM team will plan to follow clinical course closely in case any DC needs or concerns arise. TERRY Gonzalez Discharge Planning/Care Management CM Discharge Assessment Start: 01/20/24 09:41 Freq: Status: Active Protocol: Document 01/20/24 13:30 CAN (Rec: 01/20/24 13:33 CAN [id number]) Discharge Planning Assessment Assigned Health Systems Analyst TERRY Kim DPOA/Assigned Designee Name Gretta Shukla, friend Contact Information [phone] Advance Directives? Yes Advance Directives on File No History Provided By Patient,Medical Record Prior Living Arrangements House Household Members friend(s) Type of transporation used prior to Drives own vehicle admit Independent with ADL's Yes Is patient alert and oriented? Yes Patient/Family Preference OP PT Therapy Barriers to Discharge No Discharge Plan Home Transportation Arrangement family Referrals Initiated None needed
[2024-01-20 16:00] VITALS: BP 122/41; PULSE 84; RESP 19; TEMP 36.2; O2SAT 97
[2024-01-20 20:00] VITALS: BP 140/48; PULSE 65; RESP 22; TEMP 36.3; O2SAT 95
[2024-01-21] VITALS (20 sets, daily range): BP systolic 105–153; BP diastolic 58–103; PULSE 54–160; RESP 18–22; TEMP 36.1–36.6; O2SAT 92–97
[2024-01-21] MEDS: METOPROLOL TARTRATE 5 MG/5 ML INJ IV ×2 (03:12→04:15)
--- NOTE | 2024-01-21 03:47 | EKG_ITS ---
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
[2024-01-21 04:33] LABS: Blood Urea Nitrogen 24 mg/dL (7-17); Calcium 8.3 mg/dL (8.4-10.2); Carbon Dioxide 27 mmol/L (22-32); Chloride 107 mmol/L (98-107); Estimated Glomerular Filt Rate 59 mL/min (>60); Glucose 113 mg/dL (80-110); HEMOLYSIS < 15 (0-50); Magnesium 2.4 mg/dL (1.6-2.3); Sodium 139 mmol/L (137-145)
--- NOTE | 2024-01-21 05:20 | PC.NURSE ---
~0245 Pt began to run HR of 130-150's going in and out of Afib. At 0315 Metoprolol 5 mg IV given per PRN order. Dr Medina made aware. 0400 HR continues to sustain in the 150's. Per Dr Medina's orders, EKG/stat BMP+Mag/repeat of the Metoprolol 5 mg IV given. Labs were unremarkable, EKG shows afib RVR. 0500 HR continues at 150-160, BP 107/66, pt moved to ICU, tele-sales and service change leader consult requested. Messaged Carol for further orders at 0530, called Carol at 0600 having received no communication. Received order for dilt bolus and drip. Dilt bolus hung, by 0632 HR in 60's NSR.
[2024-01-21] MEDS: dilTIAZem 125 MG in SODIUM CHLORIDE 0.9% 100 ML IV (06:12)
[2024-01-21] MEDS: ACETAMINOPHEN 325 MG TABLET 650 MG PO ×3 (07:37→18:31)
--- NOTE | 2024-01-21 08:28 | P.PN_ITS ---
Subjective Subjective Interval history: 83 F with PMH of afib with RVR. Admitted for R total knee arthroplasty, development of afib with RVR after last surgery. Patient has subsequently stopped taking amiodarone and metoprolol since her prior admission. Shortly after admission she developed RVR, was given metoprolol 12.5 mg, and metoprolol 5 mg IV with improvement in rate. She denies palpitations, chest pain, shortness of breath, nausea, vomiting. Was improved 9/5, but then went into AF RVR and SVT last night. She is in sinus rhythm this morning. She was placed on a diltiazem drip overnight, we will wean this off this morning. Subjective: She was doing well this morning. She has no chest pain or dyspnea. She was now normal sinus rhythm. Exam Vital Signs (past 8 hours): - 01/21/24 06:00 01/21/24 06:12 Temperature 97.8 F Pulse Rate 81 160 H Respiratory Rate 22 Blood Pressure 130/85 130/85 Pulse Oximetry 92 Oxygen Flow Rate 0 Oxygen Delivery Method Room Air Oxygen Flow Rate 0 Narrative Exam Narrative: NAD, alert and oriented. Fluent speech. Lungs are clear, normal rate and effort. Heart is regular, no murmur gallop or rub. Abdomen is soft, non distended. Extremities are free of edema. 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 Paroxysmal atrial fibrillation with rapid ventricular response. New and resolved (again). In sinus rhythm now. -we will try diltiazem 30 q.6 hours. 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 We will see if her rate is controlled without bradycardia with diltiazem at 30 q.6 hours and potentially convert to CD later today or tomorrow morning. - continue apixaban 5 mg BID as appropriate by primary service, ordered to start tomorrow. 2. Hypotension, new and resolved. 3. Status post right total knee arthroplasty on January 18. PLAN: -diltiazem 30 mg q.6 hours for rate control, watch for bradycardia. She had this problem with metoprolol. Code: Full, surrogate is patient's friend Gretta DVT: on apixaban JOSE ELIAS: 01/21. Time-Based Coding :: 25 min spent with patient and on the chart (including review of chart, obtaining history, exam, reviewing outside data, placing orders, documenting exam and treatment plan, and counseling patient) on 01/20. Quality VTE Deep Vein Thrombosis/Pulmonary Embolism Present on Admission: No
[2024-01-21] MEDS: dilTIAZem 30 MG TABLET PO ×3 (08:42→18:07)
[2024-01-21] MEDS: APIXABAN 5 MG TABLET PO ×2 (08:43→20:19)
[2024-01-21] MEDS: IBUPROFEN 600 MG TABLET PO ×3 (08:43→20:19)
[2024-01-21] MEDS: DOCUSATE 100 MG CAPSULE PO (08:43)
--- NOTE | 2024-01-21 11:14 | PT.IPTN ---
Current Diagnoses Unilateral primary osteoarthritis, right knee (01/19/24) Surgery Performed Operation Date: 01/19/24 08:45 Actual Procedures p Total Knee Arthroplasty(Right) - Juve Duran MD Physical Therapy Treatment Note M2 PT-IP Current Condition Start: 01/20/24 10:15 Freq: NEEDED Status: Active Protocol: Document 01/20/24 10:18 MB (Rec: 01/20/24 10:52 MB [id number]) Physical Therapy Current Condition Current Condition Evaluation Date 01/20/24 Treatment Diagnosis Right TKR M3 PT-IP Subjective Start: 01/20/24 10:15 Freq: NEEDED Status: Active Protocol: Document 01/21/24 11:50 TS (Rec: 01/21/24 11:56 TS [id number]) Subjective Physical Therapy Visit Type Type Treatment Note Visit Start Time 11:14 Visit Stop Time 11:34 Number of MILLINERY DEPARTMENT MANAGER Visits 2 Physical Therapy Visit Comments Patient Comments Pt found resting in the chair, reprots HR is stable, in the 60's now. She is agreeable to PT. Therapy Pain Assessment Pain When Pain Assessed During Mobility Pain Present Pain Present Pain Reported M4 PT-IP Mobility and Gait Start: 01/20/24 10:15 Freq: NEEDED Status: Active Protocol: Document 01/21/24 11:50 TS (Rec: 01/21/24 11:56 TS [id number]) PT-Bed Mobility Assessment Sit to Supine Sit to Supine Standby Assistance Scooting Scooting Up and Down in Bed Standby Assistance PT-Transfer Assessment Sit to and From Stand Sit to and from Stand Standby Assistance Equipment Transfer Assistive Device Gait Belt,Front Wheeled Walker Orthotic/Prosthetic Devices or Brace: No Comments Mobility Comments STS from chair SBA with cues for pushing form arms of the chair. She ambulated ~200' SBA with step to gait, she had no buckling or LOB. Pt ambulated back to the room. Sit to supine SBA, pt uses UE's for assisting RLE into bed. Pt was left in bed, ice machine on, all needs met. Gait Assessment Gait Gait Assistance Required: Standby Assistance Distance (Feet) 200 Assistive Devices Assistive Device Gait Belt,Front Wheeled Walker Gait Deviations General Gait Pattern Antalgic,Decreased Stride Length,Decreased Feet Clearance,Flexed Trunk,Step-to Gait,Wide Based Gait Factors Limiting Gait Function Factors Limiting Gait Function Decreased Activity Tolerance, Decreased Strength,Difficulty Following Directions,Limited Range of Motion,Pain,Poor Balance PT-Balance Assessment Sitting Balance and Reactions Static Sitting Balance Ability Good Dynamic Sitting Balance Ability Good Standing Balance and Reactions Static Standing Balance Ability Fair Dynamic Standing Balance Ability Fair Device Used FWW M5 PT-IP Objective Assessments Start: 01/20/24 10:15 Freq: NEEDED Status: Active Protocol: Document 01/20/24 10:18 MB (Rec: 01/20/24 10:52 MB [id number]) Orientation Orientation/Cognition Level of Alertness Alert Orientation Name,Age,Birthday,Month,Date, Year,Day of Week,Place, Situation Language Function Ability No Deficits Noted Safety Awareness Decreased Safety Awareness Memory Description No Deficits Noted Gross Range of Motion Upper Extremity ROM Assessment Within Functional Limits Lower Extremity ROM Assessment Right Impaired Impairments Functionally observed right knee movement from 15-60 deg this a.m. Strength Upper Extremity Strength Assessment Within Functional Limits Lower Extremity Strength Assessment Right Impaired Comments Strength Comments LLE functional, pt does not tolerate MMT any LE joint Coordination Assessment Gross Coordination Gross Coordination Impaired Sensation Assessment Comments Sensation Comments Denies paresthesias Muscle Tone Muscle Tone WNL Yes M6 PT-IP Treatment Start: 01/20/24 10:15 Freq: NEEDED Status: Active Protocol: Document 01/21/24 11:50 TS (Rec: 01/21/24 11:56 TS [id number]) Physical Therapy Treatment Education Education Provided Weight Bearing Status,Post-Op Packet,Safety M7 PT-IP Assessment and Plan Start: 01/20/24 10:15 Freq: NEEDED Status: Active Protocol: Document 01/21/24 11:50 TS (Rec: 01/21/24 11:56 TS [id number]) PT Summary Assessment and Plan Potential Rehabilitation Potential Good Summary Impairments Pain,ROM,Strength,Balance,Bed Mobility,Transfers,Gait, Activity Tolerance Progress Towards Goals Progressing Toward Goals Assessment Summary Miracle is making progress with her mobility. She progressed her gait to ~200SBA with FWW. She continues to be SBA for all bed mobility. Her vitals are stable now and she is feeling much better. PT is recommending home with assist. Goals Bed Mobility Goal Independent Transfer Goal Independent,Front Wheeled Walker Gait Goal Independent,Front Wheel Walker Gait Distance 75 Other Goals Pt will ascend and descend 1 platform step with RW and no more than CGA to allow safe home entrance. Days to Meet Goals 2 Frequency of Treatment Frequency Of Treatment Twice a Day Treatment Plan Physical Therapy Treatment Plan Bed Mobility Training,Transfer Training,Gait Training, Therapeutic Exercise,Balance Retraining,Post Op Education, Discharge Planning,Hot or Cold Pack,Neuromuscular Re-ed, Coordination Retraining,Manual Therapy Weight Bearing Status Weight Bearing Status Weight Bear as Tolerated Recommendations To Nursing Amount of Assist Needed 1 Person Assist Discharge Recommendations PT Discharge Recommendations Home with Assistance, Outpatient PT Transportation Needs at Discharge Private Vehicle
--- NOTE | 2024-01-21 12:45 | P.PN_ITS ---
Subjective Subjective Date Patient Seen: 01/21/24 Time Patient Seen: 12:45 Interval history: Pt sitting up in bed, feeling fine. Went in to a fib w/ RVR and SVT this morning. Dr Trevizo started on diltiazem for rate control; plan is to monitor and possibly switch to cardizem for discharge if she is well-controlled without bradycardia. 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 Exam Vital Signs (past 8 hours): - 01/21/24 04:52 01/21/24 05:00 01/21/24 05:05 Temperature Pulse Rate 158 H 136 H 153 H Respiratory Rate 21 20 Blood Pressure 107/66 109/68 Pulse Oximetry Oxygen Flow Rate 01/21/24 06:00 01/21/24 06:00 01/21/24 06:07 Temperature 97.8 F Pulse Rate 81 157 H 80 Respiratory Rate 22 Blood Pressure 130/85 130/85 Pulse Oximetry 92 94 95 Oxygen Flow Rate 0 0 0 01/21/24 06:12 01/21/24 07:00 01/21/24 08:00 Temperature Pulse Rate 160 H 63 Respiratory Rate Blood Pressure 130/85 125/61 126/58 L Pulse Oximetry Oxygen Flow Rate 01/21/24 08:30 01/21/24 08:42 01/21/24 11:53 Temperature Pulse Rate 63 76 54 L Respiratory Rate Blood Pressure 105/64 105/64 125/71 Pulse Oximetry Oxygen Flow Rate 01/21/24 12:00 Temperature Pulse Rate Respiratory Rate 20 Blood Pressure 132/59 L Pulse Oximetry 97 Oxygen Flow Rate Oxygen Delivery Method Room Air Oxygen Flow Rate 0 Narrative Exam Narrative: 4/5 strength in hip flexors, quadriceps, hamstrings; 5/5 PF, DF, EHL on right. Sensation to light touch intact throughout RLE. Calf soft and compressible. VENTURA functioning, BRADLEY CDI. Objective Labs 01/20/24 04:40 01/21/24 04:09 Labs: Laboratory Results - last 24 hr 01/21/24 04:09 Sodium 139 Potassium 4.0 Chloride 107 Carbon Dioxide 27 BUN 24 H Creatinine 0.96 Estimated GFR 59 L BUN/Creatinine Ratio 25.0 H Glucose 113 H Calcium 8.3 L Magnesium 2.4 H PFSH Medical History Easy bruisability Osteoarthritis Bigeminal rhythm Ganglion cyst of finger of right hand Surgical History H/O wrist surgery Hx of tonsillectomy H/O: hysterectomy (~1988) S/P total hip arthroplasty (02/2023) History of cataract removal with insertion of prosthetic lens Social History household members: friend(s) Smoking Status: Former smoker alcohol intake: current Assessment & Plan Post-op Assessment and plan (1) Total knee replacement status: Assessment and Plan narrative: 1) Eliquis 5mg BID restarted yesterday morning; continue for VTE prophylaxis. 2) Continue PT, multimodal pain control w/ ice, OTC meds, opioids as needed. 3) Plan to discharge home once pt exhibits rate control for at least 24 hours. (2) Atrial fibrillation with rapid ventricular response: Assessment and Plan narrative: 1) Calcium channel diane or other rate control med per hospitalist service - appreciate Dr Trevizo's help. Postoperative Procedures: Procedures Operation Date: 01/19/24 08:45 Actual Procedure Side Surgeon p Total Knee Arthroplasty Right Juve Duran MD Postoperative day: 2 Quality VTE Deep Vein Thrombosis/Pulmonary Embolism Present on Admission: No
[2024-01-21] MEDS: CYCLOBENZAPRINE 10 MG TABLET 5 MG PO ×2 (13:43→21:22)
--- NOTE | 2024-01-21 15:53 | PT.IPTN ---
Current Diagnoses Unspecified atrial fibrillation (01/19/24) Unilateral primary osteoarthritis, right knee (01/19/24) Presence of unspecified artificial knee joint (01/19/24) Surgery Performed Operation Date: 01/19/24 08:45 Actual Procedures p Total Knee Arthroplasty(Right) - Juve Duran MD Physical Therapy Treatment Note M2 PT-IP Current Condition Start: 01/20/24 10:15 Freq: NEEDED Status: Active Protocol: Document 01/20/24 10:18 MB (Rec: 01/20/24 10:52 MB [id number]) Physical Therapy Current Condition Current Condition Evaluation Date 01/20/24 Treatment Diagnosis Right TKR M3 PT-IP Subjective Start: 01/20/24 10:15 Freq: NEEDED Status: Active Protocol: Document 01/21/24 16:12 TS (Rec: 01/21/24 16:30 TS [id number]) Subjective Physical Therapy Visit Type Type Treatment Note Visit Start Time 15:53 Visit Stop Time 16:07 Number of HEEL FORMER Visits 3 Physical Therapy Visit Comments Patient Comments Pt found resting in the chair, she is agreeable to PT. Therapy Pain Assessment Pain When Pain Assessed During Mobility Pain Present Pain Present Pain Reported M4 PT-IP Mobility and Gait Start: 01/20/24 10:15 Freq: NEEDED Status: Active Protocol: Document 01/21/24 16:12 TS (Rec: 01/21/24 16:30 TS [id number]) PT-Bed Mobility Assessment Sit to Supine Sit to Supine Standby Assistance Scooting Scooting Up and Down in Bed Standby Assistance PT-Transfer Assessment Sit to and From Stand Sit to and from Stand Standby Assistance Equipment Transfer Assistive Device Gait Belt,Front Wheeled Walker Orthotic/Prosthetic Devices or Brace: No Comments Mobility Comments STS from chair SBA with FWW, pt demonstrates good carryover STS technique. She ambulates TTWB on LLE ~15'SBA with FWW, she reports increased pain this afternoon. Pt requested back to bed. Sit to supine SBA , pt uses BUE's to assist LLE into bed. Pt was left in bed, all needs met. Gait Assessment Gait Gait Assistance Required: Standby Assistance Distance (Feet) 15 Assistive Devices Assistive Device Gait Belt,Front Wheeled Walker Orthotic/Prosthetic Devices or Brace: No Gait Deviations General Gait Pattern Antalgic,Decreased Stride Length,Decreased Feet Clearance,Flexed Trunk,Step-to Gait,Wide Based Gait Factors Limiting Gait Function Factors Limiting Gait Function Decreased Activity Tolerance, Decreased Strength,Difficulty Following Directions,Limited Range of Motion,Pain,Poor Balance PT-Balance Assessment Sitting Balance and Reactions Static Sitting Balance Ability Good Dynamic Sitting Balance Ability Good Standing Balance and Reactions Static Standing Balance Ability Fair Dynamic Standing Balance Ability Fair Device Used FWW M5 PT-IP Objective Assessments Start: 01/20/24 10:15 Freq: NEEDED Status: Active Protocol: Document 01/20/24 10:18 MB (Rec: 01/20/24 10:52 MB [id number]) Orientation Orientation/Cognition Level of Alertness Alert Orientation Name,Age,Birthday,Month,Date, Year,Day of Week,Place, Situation Language Function Ability No Deficits Noted Safety Awareness Decreased Safety Awareness Memory Description No Deficits Noted Gross Range of Motion Upper Extremity ROM Assessment Within Functional Limits Lower Extremity ROM Assessment Right Impaired Impairments Functionally observed right knee movement from 15-60 deg this a.m. Strength Upper Extremity Strength Assessment Within Functional Limits Lower Extremity Strength Assessment Right Impaired Comments Strength Comments LLE functional, pt does not tolerate MMT any LE joint Coordination Assessment Gross Coordination Gross Coordination Impaired Sensation Assessment Comments Sensation Comments Denies paresthesias Muscle Tone Muscle Tone WNL Yes M6 PT-IP Treatment Start: 01/20/24 10:15 Freq: NEEDED Status: Active Protocol: Document 01/21/24 16:12 TS (Rec: 01/21/24 16:30 [id number]) Physical Therapy Treatment Education Education Provided Weight Bearing Status,Post-Op Packet,Safety M7 PT-IP Assessment and Plan Start: 01/20/24 10:15 Freq: NEEDED Status: Active Protocol: Document 01/21/24 16:12 TS (Rec: 01/21/24 16:30 [id number]) PT Summary Assessment and Plan Potential Rehabilitation Potential Good Summary Impairments Pain,ROM,Strength,Balance,Bed Mobility,Transfers,Gait, Activity Tolerance Progress Towards Goals Progressing Toward Goals Assessment Summary Miracle has an increase in pain this afternoon limiting her mobility. She ambulates ~15 in room SBA with FWW with TTWB. She can't get her foot flat on the ground at this time. She continues to be SBA for bed mobility. PT is recommending home with assist. Goals Bed Mobility Goal Independent Transfer Goal Independent,Front Wheeled Walker Gait Goal Independent,Front Wheel Walker Gait Distance 75 Other Goals Pt will ascend and descend 1 platform step with RW and no more than CGA to allow safe home entrance. Days to Meet Goals 2 Frequency of Treatment Frequency Of Treatment Twice a Day Treatment Plan Physical Therapy Treatment Plan Bed Mobility Training,Transfer Training,Gait Training, Therapeutic Exercise,Balance Retraining,Post Op Education, Discharge Planning,Hot or Cold Pack,Neuromuscular Re-ed, Coordination Retraining,Manual Therapy Weight Bearing Status Weight Bearing Status Weight Bear as Tolerated Recommendations To Nursing Amount of Assist Needed 1 Person Assist Discharge Recommendations PT Discharge Recommendations Home with Assistance, Outpatient PT Transportation Needs at Discharge Private Vehicle
--- NOTE | 2024-01-21 23:57 | PC.NURSE ---
SB on tele, 56-60 throughout shift. Currently SB 58. Spoke with Dr Medina via telephone about parameters for cardizem po q6. ordered to hold cardizem dose now and place parameters hold if SBP >100 or HR >80.
[2024-01-22 00:01] VITALS: BP 158/65; PULSE 66; RESP 17; TEMP 36.4; O2SAT 95
[2024-01-22] MEDS: ACETAMINOPHEN 325 MG TABLET 650 MG PO ×2 (00:01→06:27)
[2024-01-22 00:02] VITALS: PULSE 58
[2024-01-22] MEDS: IBUPROFEN 600 MG TABLET PO ×2 (03:19→10:27)
[2024-01-22 03:24] VITALS: BP 132/63; PULSE 62; RESP 18; TEMP 36.4; O2SAT 92
[2024-01-22] MEDS: CYCLOBENZAPRINE 10 MG TABLET 5 MG PO (06:27)
[2024-01-22 06:57] VITALS: PULSE 57
[2024-01-22 08:00] VITALS: BP 132/61; PULSE 66; RESP 24; TEMP 36.7; O2SAT 93
[2024-01-22] MEDS: DOCUSATE 100 MG CAPSULE PO (08:26)
[2024-01-22] MEDS: APIXABAN 5 MG TABLET PO (08:26)
--- NOTE | 2024-01-22 09:00 | PT.IPTN ---
Current Diagnoses Unspecified atrial fibrillation (01/19/24) Unilateral primary osteoarthritis, right knee (01/19/24) Presence of unspecified artificial knee joint (01/19/24) Surgery Performed Operation Date: 01/19/24 08:45 Actual Procedures p Total Knee Arthroplasty(Right) - Juve Duran MD Physical Therapy Treatment Note M2 PT-IP Current Condition Start: 01/20/24 10:15 Freq: NEEDED Status: Active Protocol: Document 01/20/24 10:18 MB (Rec: 01/20/24 10:52 MB [id number]) Physical Therapy Current Condition Current Condition Evaluation Date 01/20/24 Treatment Diagnosis Right TKR M3 PT-IP Subjective Start: 01/20/24 10:15 Freq: NEEDED Status: Active Protocol: Document 01/22/24 09:30 TS (Rec: 01/22/24 09:43 TS [id number]) Subjective Physical Therapy Visit Type Type Treatment Note Visit Start Time 09:00 Visit Stop Time 09:28 Number of DRILL PRESS HAND Visits 4 Physical Therapy Visit Comments Patient Comments Pt reports feeling good and is agreeable to PT. Therapy Pain Assessment Pain When Pain Assessed During Mobility Pain Present Pain Present Pain Reported M4 PT-IP Mobility and Gait Start: 01/20/24 10:15 Freq: NEEDED Status: Active Protocol: Document 01/22/24 09:30 TS (Rec: 01/22/24 09:43 TS [id number]) PT-Bed Mobility Assessment Supine to Sit Supine to Sit Standby Assistance,Head of Bed Elevated,Bedrails Sit to Supine Sit to Supine Standby Assistance Scooting Scooting Up and Down in Bed Standby Assistance PT-Transfer Assessment Sit to and From Stand Sit to and from Stand Standby Assistance Equipment Transfer Assistive Device Gait Belt,Front Wheeled Walker Orthotic/Prosthetic Devices or Brace: No Comments Mobility Comments Supine to sit SBA. pt ambulates with emerging step thru gait ~100'SBA. She had no buckling or LOB this session. Pt was left back in bed, all needs met. Gait Assessment Gait Gait Assistance Required: Standby Assistance Distance (Feet) 100 Assistive Devices Assistive Device Gait Belt,Front Wheeled Walker Orthotic/Prosthetic Devices or Brace: No Gait Deviations General Gait Pattern Antalgic,Decreased Stride Length,Decreased Feet Clearance,Flexed Trunk,Step-to Gait,Wide Based Gait Factors Limiting Gait Function Factors Limiting Gait Function Decreased Activity Tolerance, Decreased Strength,Difficulty Following Directions,Limited Range of Motion,Pain,Poor Balance PT-Balance Assessment Sitting Balance and Reactions Static Sitting Balance Ability Good Dynamic Sitting Balance Ability Good Standing Balance and Reactions Static Standing Balance Ability Fair Dynamic Standing Balance Ability Fair Device Used FWW M5 PT-IP Objective Assessments Start: 01/20/24 10:15 Freq: NEEDED Status: Active Protocol: Document 01/20/24 10:18 MB (Rec: 01/20/24 10:52 MB [id number]) Orientation Orientation/Cognition Level of Alertness Alert Orientation Name,Age,Birthday,Month,Date, Year,Day of Week,Place, Situation Language Function Ability No Deficits Noted Safety Awareness Decreased Safety Awareness Memory Description No Deficits Noted Gross Range of Motion Upper Extremity ROM Assessment Within Functional Limits Lower Extremity ROM Assessment Right Impaired Impairments Functionally observed right knee movement from 15-60 deg this a.m. Strength Upper Extremity Strength Assessment Within Functional Limits Lower Extremity Strength Assessment Right Impaired Comments Strength Comments LLE functional, pt does not tolerate MMT any LE joint Coordination Assessment Gross Coordination Gross Coordination Impaired Sensation Assessment Comments Sensation Comments Denies paresthesias Muscle Tone Muscle Tone WNL Yes M6 PT-IP Treatment Start: 01/20/24 10:15 Freq: NEEDED Status: Active Protocol: Document 01/22/24 09:30 TS (Rec: 01/22/24 09:43 TS [id number]) Physical Therapy Treatment Education Education Provided Weight Bearing Status,Post-Op Packet,Safety M7 PT-IP Assessment and Plan Start: 01/20/24 10:15 Freq: NEEDED Status: Active Protocol: Document 01/22/24 09:30 TS (Rec: 01/22/24 09:43 TS [id number]) PT Summary Assessment and Plan Potential Rehabilitation Potential Good Summary Impairments Pain,ROM,Strength,Balance,Bed Mobility,Transfers,Gait, Activity Tolerance Progress Towards Goals Progressing Toward Goals Assessment Summary Miracle is making good progress with her mobility. She is SBA for all bed mobility. She continues to ambulate longer distances with FWW. She progressed to an emerging step thru gait. PT continues to recommend home with assist. Goals Bed Mobility Goal Independent Transfer Goal Independent,Front Wheeled Walker Gait Goal Independent,Front Wheel Walker Gait Distance 75 Other Goals Pt will ascend and descend 1 platform step with RW and no more than CGA to allow safe home entrance. Days to Meet Goals 2 Frequency of Treatment Frequency Of Treatment Twice a Day Treatment Plan Physical Therapy Treatment Plan Bed Mobility Training,Transfer Training,Gait Training, Therapeutic Exercise,Balance Retraining,Post Op Education, Discharge Planning,Hot or Cold Pack,Neuromuscular Re-ed, Coordination Retraining,Manual Therapy Weight Bearing Status Weight Bearing Status Weight Bear as Tolerated Recommendations To Nursing Amount of Assist Needed 1 Person Assist Discharge Recommendations PT Discharge Recommendations Home with Assistance, Outpatient PT Transportation Needs at Discharge Private Vehicle
[2024-01-22] MEDS: dilTIAZem CD 120 MG CAP PO (10:27)
--- NOTE | 2024-01-22 11:08 | P.DS_ITS ---
History of Present Illness History of Present Illness Date Patient Seen: 01/22/24 Time Patient Seen: 11:08 Chief complaint: Right Total Knee Arthroplasty 01/18 Narrative: Operative Date/Time/Diagnoses Date of procedure: 01/19/24 Pre-op diagnosis: Right knee osteoarthritis Post-op diagnosis: same Procedure & Clinicians Procedure: Right total knee arthroplasty Same procedure as scheduled: Yes Surgeon: Juve Duran Emg Technician: Florecita Andres Anesthesia Type: General and Local Operative Notes Estimated Blood Loss (mL): 350 Procedure in detail: Right Gap-Balanced Sera Persona Medial-Congruent Primary Total Knee Arthroplasty Implants: * Size 9 Cruciate Retaining Femoral Component * Size F Tibial Component with 14 x 30 stem extension * Size 10 Medial Congruent Polyethylene Insert * Unresurfaced Patella Discharge Providers Provider Discharge Date: 01/22/24 Primary care physician: Aleja Hawk DO Consults: 01/06/24 10:46 Consult to Anesthesiology Routine Comment: Consulting Provider: Anesthesiologist Reason for consultation: Surgeon requestd re: cardiac history 01/19/24 06:00 Consult to Anesthesiology Routine Comment: Consulting Provider: Anesthesiologist Reason for consultation: Regional block for post operative pain control 01/19/24 12:51 Consult to Discharge Planning Routine Comment: Consult to Physical Therapy Evaluate & Treat Comment: Physician Instructions: postop TKA protocol 01/19/24 17:23 Consult to Hospitalist Service Routine Comment: rapid hr Consulting Provider: Apollo Chance Reason for consultation: rapid heart rate 01/20/24 08:06 Consult to Dietitian, Adult Urgent Comment: Reason For Exam: Sacral wound Discharge provider: Florecita Andres PA-C Summary Hospital Course Discharge Diagnosis: Right knee osteoarthritis, s/p right total knee arthroplasty. Paroxysmal atrial fibrillation w/ episodes of rapid ventricular response and supraventricular tachycardia. Hospital Course: Ms Carpenter's postop course was remarkable for episodes of PAF w/ RVR and SVT. She had these episodes in the past and was on metroprolol, but it was discontinued d/t bradycardia. She was brought under control during this admission w/ diltiazem, first IV, then orally. On the morning of POD# 3, she had been in NSR for >24 hours prior w/ diltiazem. The hospitalist felt she was appropriate for discharge. She was eating and voiding without difficulty and her pain was well-controlled w/ APAP, IBPN, and occasional cyclobenzaprine. She was evaluated by PT throughout her stay and they felt she was appropriate for discharge home. Exam Vital Signs (past 8 hours): - 01/22/24 03:24 01/22/24 06:57 01/22/24 08:00 Temperature 97.5 F L 98.0 F Pulse Rate 62 57 L 66 Respiratory Rate 18 24 Blood Pressure 132/63 132/61 Pulse Oximetry 92 93 Oxygen Delivery Method Oxygen Flow Rate 0 0 01/22/24 10:00 Temperature Pulse Rate Respiratory Rate Blood Pressure Pulse Oximetry Oxygen Delivery Method Room Air Oxygen Flow Rate Oxygen Delivery Method Room Air Oxygen Flow Rate 0 Narrative Exam Narrative: 4/5 strength in hip flexors, quadriceps, hamstrings; 5/5 PF, DF, EHL on the right. Sensation to light touch intact throughout RLE. Calf soft and compressible. BRADLEY and webril removed; VENTURA functioning, CDI. 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 Paroxysmal atrial fibrillation w/ episodes of rapid ventricular response and supraventricular tachycardia. Plan of Treatment: Discharge home. Will d/c metoprolol, start diltiazem CD, first dose at home on 01/23/2024. F/u w/ cardiology. Multimodal pain control, outpt PT, Eliquis for VTE prophylaxis, f/u in office as scheduled. Discharge Plan Discharge Plan Patient Disposition: Home Discharge orders & Medications Discharge Orders: Discharge (Order); Ordered 01/22/24 Ordered By: Florecita Andres Prescriptions: New diltiazem HCl 120 mg capsule,extended release 24hr 120 mg PO DAILY 90 Days Qty: 90 0RF Continued Eliquis 5 mg tablet 5 mg PO BID Qty: 60 2RF Discontinued metoprolol succinate 25 mg tablet extended release 24 hr 12.5 mg PO DAILY PRN (Reason: Heart Rate >90) Follow up/Referrals: Juve Duran MD [Physician] - 01/31/24 11:00 am (Follow up w/ KAYLIN Chandler, at [facility] office in [place].) Aleja Hawk DO [Primary Care Provider] - Diet/Activity/Treatments Diet: Diet as Tolerated Activity: Weightbearing as tolerated. Walk frequently! Cold/Heat Therapy: Ice to knee as needed for pain. Skin/Wound/Dressing Care Report to your healthcare provider any signs of infection, such as:: chills, fever, night sweats, unusual drainage and unusual redness Dressing: May shower. Leave VENTURA dressing in place until follow up in office. In 5-7 days, the batteries will , at which point you can cut off the battery pack and dispose of it. Leave the dressing on. No bathing or otherwise soaking incision. Call the office if the dressing becomes saturated. Visit Report/Discharge Packet Instructions: DI for Knee Replacement, DI for Prescription Opioid Use Stand Alone Forms: Patient Portal/API, Surgery Discharge Discharge Data Primary Care Provider: Aleja Hawk Attending Provider: Juve Duran Quality VTE Deep Vein Thrombosis/Pulmonary Embolism Present on Admission: No
--- NOTE | 2024-01-22 13:10 | PM.CALLCOV.1 ---
Call Coverage Note Note Narrative of Care Provided: Patient is stable for discharge from medicine perspective. Recommend continued diltiazem 120 mg daily which was sent to her pharmacy.
--- NOTE | 2024-01-22 13:26 | CM.DPC ---
DCP Discharge Home Per MD and Ortho, pt AFIB/RVR resolved and medically stable to discharge home today with no identified barriers to discharge. Per QUALITY ASSURANCE ASSISTANT, pt ambulated well after RTKA and recommending home with roommate assist and outpt PT. Per RN, discharge instructions provided and no concerns noted and DIL to provide transport home today. TERRY Miller
== END 2024-01-22 12:00 | disposition home or self-care (01) | DRG 470 ==
LOC: AC 01-24 10:08 → OR 01-24 10:09 → AC 01-24 10:09
PROVIDERS: Internal Medicine; Admitting Provider Orthopaedic Surgery Adult Reconstructive Orthopaedic Surgery; Family Provider Family Medicine; PCP Family Medicine; Referring Provider Orthopaedic Surgery Adult Reconstructive Orthopaedic Surgery; Visit Provider Orthopaedic Surgery Adult Reconstructive Orthopaedic Surgery
PROC: 0SRC0JZ Replacement of Right Knee Joint with Synthetic Substitute, Open Approach (ICD-10-PCS; CPT 27447; principal; 2024-01-19 08:45)
DX: M17.11 Unilateral primary osteoarthritis, right knee (principal); I47.10 Supraventricular tachycardia, unspecified; I48.0 Paroxysmal atrial fibrillation; M81.0 Age-related osteoporosis without current pathological fracture; R73.03 Prediabetes; I95.9 Hypotension, unspecified; R11.0 Nausea; Z79.01 Long term (current) use of anticoagulants; Z87.891 Personal history of nicotine dependence
CPT/HCPCS: 36415; 73560; 80048; 82962; 83036; 83735; 85014; 85018; 93005; 97116; 97161; 97530; C1776; J0330; J0690; J1100; J1170; J1815; J2405; J2704; J2765; J3010; J3490

== ENCOUNTER → 2024-12-06 14:09 | Outpatient (CLI) | payer MEDICARE, SELFPAY ==
[2024-01-19 07:27] VITALS: BMI 32.8
[2024-12-06 14:38] LABS: Add Manual Diff / Slide Review NO; Hematocrit 38.0 % (36-46); Hemoglobin 13.0 g/dL (12.0-16.0); Lymphocytes Absolute Auto 1700 /uL (1100-4500); Mean Corpuscular HGB Conc 34.1 % (30-36); Mean Corpuscular Hemoglobin 31.5 PG (26-34); Mean Corpuscular Volume 92.2 fL (80-100); Platelet Count 283 X10^3/uL (150-400)
[2024-12-06 14:46] LABS: Hemoglobin A1C% w Est Avg Glu 5.9 % (4.0-6.0)
[2024-12-06 15:02] LABS: Alanine Aminotransferase 13 IU/L (<35); Albumin 3.6 g/dL (3.5-5.0); Albumin Globulin Ratio 1.4 (1.0-2.8); Alkaline Phosphatase 78 U/L (38-126); Blood Urea Nitrogen 15 mg/dL (7-17); Calcium 8.9 mg/dL (8.4-10.2); Carbon Dioxide 27 mmol/L (22-32); Chloride 107 mmol/L (98-107); Estimated Glomerular Filt Rate > 60 mL/min (>60); Globulin 2.5 g/dL (1.7-4.1); Glucose 87 mg/dL (70-99); HEMOLYSIS < 15 (0-50); Potassium 4.9 mmol/L (3.4-5.1); Sodium 138 mmol/L (137-145); Total Protein 6.1 g/dL (6.3-8.2)
== END ==
LOC: LAB 14:09
PROVIDERS: Family Provider Family Medicine; PCP Family Medicine; Referring Provider Family Medicine; Visit Provider Family Medicine
DX: D68.69 Other thrombophilia (principal); R73.09 Other abnormal glucose; I48.91 Unspecified atrial fibrillation
CPT/HCPCS: 36415; 80053; 83036; 85025